=== PATIENT | female | born 2000 | race Caucasian/White ===

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

== ENCOUNTER 2020-12-09 19:24 | Emergency (ER) | payer MEDICAID, SELFPAY ==
[2020-12-09 20:47] VITALS: BP 118/78; PULSE 91; RESP 18; TEMP 36.4; O2SAT 99; BMI 31.1
--- NOTE | 2020-12-09 20:58 | HMH.EDUTC ---
[facility] [place] Disposition Clinical Impression: Exposure to COVID-19 virus Pharyngitis Qualifiers: Pharyngitis/tonsillitis etiology: unspecified etiology Qualified Code(s): J02.9 - Acute pharyngitis, unspecified Disposition: Home, Self-Care Condition on Discharge: Good Instructions: DI for COVID-19 (Suspected or Confirmed ), Preventing the Spread of Coronavirus Discharge Instructions Additional Instructions: Drink plenty of fluids. Take tylenol for pain or fever. Return if you begin to have difficulty breathing. Follow up with your regular doctor. GO TO THE ER FOR ANY WORSENING SYMPTOMS Quarantine until you know the results of your covid-19 test. If it is positive, the health department should call you and give you further instructions about your length of Quarantine and other things. Notify your school or workplace of your results and follow their instructions regarding return to work/school. Prescriptions: Brompheniramine/Pseudoephed/Dm [Bromfed Dm Cough Syrup] 5 ml PO Q6HP PRN #240 syrup PRN Reason: Cough Transmission Status: Received by [facility] Ondansetron [Zofran 4mg ODT] 4 mg PO Q8HP PRN #20 tab.rapdis PRN Reason: Nausea Transmission Status: Received by [facility] Referrals: Jaya Bedoya MD [Primary Care Provider] - Forms: Work/School Release Time of Disposition: 21:20 Medical Decision Making - Medical Records Medical records reviewed: No: I reviewed the patient's medical records. - Nazario Inquiry Pt receiving controlled substance: No Vital Signs: 12/09/20 20:47 12/09/20 21:06 Temperature 97.5 F L 97.5 F L Temperature Source Oral Oral Pulse Rate 91 H Pulse Rate [Left] 91 H Respiratory Rate 18 16 Blood Pressure 118/78 Blood Pressure [Right Arm] 118/78 Blood Pressure Mean [Right Arm] 91 02 Sat by Pulse Oximetry 99 - Lab Data Lab Results 12/09/20 21:19: Strep Scn Rapid Clinic Negative Orders (Tests/Meds): ORDERS Category Date Time Status Covid-19 Nasal PCR ([facility]) Routine Lab 12/09/20 20:45 Received Strep Screen Confirmation Stat Micro 12/09/20 21:[address] [facility] [place] HPI - General Stated complaint: cov test Time Seen by Provider: 12/09/20 21:00 Mode of Arrival: Ambulatory Source of Information: Patient Limitations: No Limitations Description of Symptoms (Recalled from Triage Doc. by RN): PT C/O SOA,, SORE THROAT, RUNNY NOSE, AND LOSS OF TASTE AND SMELL. X3 DAYS. HEENT Symptoms (Recalled from RN notes): Yes (SORE THROAT AND RUNNY NOSE) Resp Symptoms (Recalled from RN notes): Yes (SOA) Skin Symptoms (Recalled from RN notes): No MS Symptoms (Recalled from RN notes): No Functional Status (Recalled from RN notes): NA - History of Present Illness Provider Complaint: She states that for the past 2 days she has had a sore throat and she has felt bad. She has been exposed to covid-19 last week. She has not been vaccinated. - Related Data Previous Rx's Medication Instructions Recorded cephalexin 500 mg capsule 500 mg PO TID #21 cap 08/30/20 prednisone 20 mg tablet 20 mg PO BID 5 Days #10 tab 08/30/20 benzonatate 100 mg capsule 100 mg PO TID PRN #14 cap 09/01/20 dextromethorphan-guaifenesin 30 1 tab PO Q12H #30 tab 09/01/20 mg-600 mg tablet extended [id number] hr Brompheniramine/Pseudoephed/Dm 5 ml PO Q6HP PRN #240 syrup 12/09/20 [Bromfed Dm Cough Syrup] Ondansetron [Zofran 4mg ODT] 4 mg PO Q8HP PRN #20 tab.rapdis 12/09/20 Allergies Allergy/AdvReac Type Severity Reaction Status Date / Time azithromycin [AZITHROMYCIN] Allergy Intermediate Verified 09/01/20 11:37 montelukast [From SINGULAIR] Allergy Intermediate Verified 09/01/20 11:37 - Worker's Comp Is this a Worker's Comp case?: No [facility] History - Hepatitis A Screen Drug use history?: No High risk sexual behaviors?: No History of sexually transmitted infection?: No Currently employed?: No Childcare worker?: No Do you have in
[2020-12-09 21:06] VITALS: BP 118/78; PULSE 91; RESP 16; TEMP 36.4
[2020-12-09 21:20] LABS: UTC Strep Screen (Rapid) Negative (Negative)
--- NOTE | 2020-12-12 14:06 | PC.NURSE ---
PT NOTIFIED OF POSITIVE COVID RESULTS
== END 2020-12-09 21:25 | disposition home or self-care (01) ==
PROVIDERS: Emergency Provider Nurse Practitioner Family; PCP Emergency Medicine
DX: Z20.822 Contact with and (suspected) exposure to COVID-19 (principal); J02.9 Acute pharyngitis, unspecified; R06.02 Shortness of breath; R09.89 Other specified symptoms and signs involving the circulatory and respiratory systems; R43.9 Unspecified disturbances of smell and taste
CPT/HCPCS: 87880; 99202; G0463; U0003

== ENCOUNTER → 2021-03-26 17:25 | Outpatient (CLI) | payer MEDICAID, SELFPAY ==
[2021-03-26 18:21] LABS: Chloride 104 mmol/L (98-107); Potassium 4.3 mmoL/L (3.5-5.1); Sodium 140 mmol/L (136-145)
[2021-03-26 18:24] LABS: Alanine Aminotransferase 14 U/L (12-78); Albumin Level 4.1 g/dl (3.5-5.0); Albumin/Globulin Ratio 1.4 (1.1-1.8); Alkaline Phosphatase 82 U/L (38-126); Anion Gap 10.3 mEq/L (5-15); Aspartate Amino Transferase 21 U/L (14-36); Blood Urea Nitrogen 6 mg/dl (7-17); Carbon Dioxide 30 mmol/L (22.0-30.0); Estimated Glomerular Filt Rate 91 ml/min (>60); GFR (African American) 111 ML/MIN (>60); Globulin 2.9 g/dL (1.3-3.2)
[2021-03-26 18:25] LABS: Bilirubin,Total < 0.1 mg/dl (0.2-1.3); Calcium 9.3 mg/dl (8.4-10.2); Glucose 81 mg/dl (74-100)
[2021-03-28 10:44] LABS: Rapid Plasma Reagin Ab Titer Non Reactive (NonRea<1:1)
== END ==
DX: Z11.3 Encounter for screening for infections with a predominantly sexual mode of transmission (principal); Z13.0 Encounter for screening for diseases of the blood and blood-forming organs and certain disorders involving the immune mechanism
CPT/HCPCS: 36415; 80053; 86592

== ENCOUNTER 2022-01-20 11:30 | Emergency (ER) | payer MEDICAID, SELFPAY ==
[2022-01-20 11:41] VITALS: BP 125/78; PULSE 87; RESP 15; TEMP 36.9; O2SAT 98; BMI 28.3
[2022-01-20 11:57] VITALS: BP 125/78; PULSE 87; RESP 15; TEMP 36.9; O2SAT 98
--- NOTE | 2022-01-20 12:14 | HMH.EDEYEP ---
Discharge Plan Disposition Patient Disposition: Home, Self-Care Condition: Good Prescriptions Prescriptions: New erythromycin 5 mg/gram (0.5 %) ointment 1 applic ophthalmic (eye) BID Qty: 3.5 0RF Rx Instructions: Please apply to your (R) eye twice a day No Action dextromethorphan-guaifenesin 30-600 mg tablet extended release 12 hr 1 tab PO Q12H Qty: 30 0RF benzonatate [Tessalon Perles] 100 mg capsule 100 mg PO TID PRN (Reason: cough) Qty: 14 0RF cephalexin 500 mg capsule 500 mg PO TID Qty: 21 0RF prednisone 20 mg tablet 20 mg PO BID 5 Days Qty: 10 0RF efecvykhirrgvna-sqsmxmgeo-LK 118 ML syrup 5 ml PO Q6HP PRN (Reason: Cough) Qty: 240 0RF ondansetron 4 MG tablet,disintegrating 4 mg PO Q8HP PRN (Reason: Nausea) Qty: 20 0RF Referrals Follow up/Referrals: Jaya Bedoya MD [Primary Care Provider] - See instructions Activity Restrictions/Add. Instructions Additional Instructions/Restrictions: Follow up with your primary care physician in 2-3 days for reevalution. Use antibiotic ointment as prescribed. Please use ibuprofen 800 mg every 8 hours as needed for pain and comfort for the next 3 days. May also utilize warm compresses to help with comfort. Can also use over the counter Similasan and other sterile lubricants, which you can pickle solution maker at your local drug store to ease pain. Please return to the emergency department for any worsening symptoms such as eye pain with movement of your eye, red eye, worsening swelling, fevers, headaches or any other concerns. Clinical Impressions Clinical Impression: Hordeolum externum (stye) Instructions Patient Instructions: DI for Hordeolum Print Language Print Language: French Discharge ED Provider: Daya March Eye Problem HPI General Chief complaint: Eye Problems Stated complaint: right eye swelling Time Seen by Provider: 01/20/22 11:50 Mode of Arrival: Ambulatory Source of Information: Patient Limitations: No Limitations Description of Symptoms (Recalled from ER Triage Doc. by RN): Pt presents with a stye to bottome rt eyelid. Advises that she gets one every couple of months. C/O pain and eye irritation History of Present Illness HPI Narrative: Mrs. Hinson is a 21-year-old female no significant past medical history presenting with a lesion along the right lower eyelid consistent with Hydroleum, does not involve tear duct. Patient reports symptoms started 2 days prior. She reports similar symptoms prior. Also complains of eye pain along the base of the lesion, but no pain w/ EOM. Denies headache. No recent cough, rhinorrhea or congestion. Reports utilizing [employer], just purchased a new bottle. Denies any fevers or other systemic signs of infection. MD chief complaint: eye pain (pain along the base of the eye) Onset (ago): day(s) Onset description: gradual Duration: constant Location: right eye Eye Symptoms: redness and pain Place: home Mechanism: none Severity: moderate If Pain, Quality: aching Associated symptoms: none Treatments Prior to Arrival: none Related Data Previous Rx's Medication Instructions Recorded cephalexin 500 mg capsule 500 mg PO TID #21 caps 08/30/20 prednisone 20 mg tablet 20 mg PO BID 5 days #10 tabs 08/30/20 benzonatate 100 mg capsule 100 mg PO TID PRN cough #14 caps 09/01/20 (Jaquelin Montague) dextromethorphan-guaifenesin 30 1 tab PO Q12H #30 tabs 09/01/20 mg-600 mg tablet extended hr gdlapaqpraglxlc-flcxrekxiuidzgx-UA 5 ml PO Q6HP PRN Cough ##240 12/09/20 2 mg-30 mg-10 mg/5 mL oral syrup ondansetron 4 mg disintegrating 4 mg PO Q8HP PRN Nausea ##20 12/09/20 tablet erythromycin 5 mg/gram (0.5 %) eye 1 applic ophthalmic (eye) BID #3.5 01/20/22 ointment grams Allergies Allergy/AdvReac Type Severity Reaction Status Date / Time azithromycin [AZITHROMYCIN] Allergy Intermediate Verified 09/01/20 11:37 montelukast [From SINGULAIR] Allergy Intermediate Verified
== END 2022-01-20 12:00 | disposition home or self-care (01) ==
PROVIDERS: Emergency Provider Student in an Organized Health Care Education/Training Program; PCP Emergency Medicine
DX: H00.012 Hordeolum externum right lower eyelid; Z88.1 Allergy status to other antibiotic agents; Z88.8 Allergy status to other drugs, medicaments and biological substances; Z72.0 Tobacco use
CPT/HCPCS: 99283

== ENCOUNTER → 2022-04-24 11:11 | Outpatient (CLI) | payer MEDICAID, SELFPAY | PROVIDERS: PCP Physician Assistant; Visit Provider Physician Assistant | DX: L03.316 Cellulitis of umbilicus (principal); B96.89 Other specified bacterial agents as the cause of diseases classified elsewhere | CPT/HCPCS: 87070; 87077; 87205 ==

== ENCOUNTER 2022-10-05 21:13 | Emergency (ER) | payer MEDICAID, SELFPAY ==
[2022-10-05 21:13] VITALS: BP 126/65; PULSE 63; RESP 16; TEMP 36.6; O2SAT 100; BMI 30.9
[2022-10-05 21:29] VITALS: BMI 24.9
[2022-10-05 21:35] LABS: Microscopic, Urine URINE MICROSCOPIC (MICROSCOPIC)
[2022-10-05 21:36] LABS: Appearance,Urine CLOUDY (Clear); Blood, Urine 3+ (Negative); Color,Urine BROWN (Yellow); Glucose,Urine (UA) Negative (Negative); Ketones,Urine 2+ (Negative); Leukocyte Esterase,Urine Negative (Negative); Nitrate,Urine POSITIVE (Negative); Protein,Urine 2+ (Negative); Specific Gravity, Urine >= 1.030 (1.005-1.030)
--- NOTE | 2022-10-05 21:37 | PC.NURSE ---
ROUNDED ON PT NOTHING NEEDED AT THIS TIME
--- NOTE | 2022-10-05 21:38 | PC.NURSE ---
Pt advised she did not want her step-mother back to her room. She advised she did want her step-father.
[2022-10-05 21:40] LABS: Bilirubin,Urine 2+ (Negative)
--- NOTE | 2022-10-05 21:42 | PC.NURSE ---
Pt step-father at BS
[2022-10-05 21:49] LABS: Barbiturates Screen,Urine Negative ng/ml (<200); Benzodiazepines Screen,Urine Negative ng/ml (<200)
[2022-10-05 21:50] LABS: Cannabinoid Screen,Urine Negative ng/ml (<50); Cocaine Screen,Urine Negative ng/ml (<300)
[2022-10-05 21:51] LABS: Methadone Screen,Urine Positive ng/ml (<300)
[2022-10-05 21:52] LABS: Opiate Screen,Urine Negative ng/ml (<300); Phencyclidine Screen,Urine Negative ng/ml (<25)
--- NOTE | 2022-10-05 21:53 | PC.NURSE ---
pt refuses blood work or iv insertion
[2022-10-05 21:56] LABS: Calcium Oxalate Crystals,Urine Trace /lpf; Mucus,Urine 2+ /lpf; RBC,Urine Occasional #/hpf (0-3)
--- NOTE | 2022-10-05 21:56 | PC.NURSE ---
Pt stated that she wanted Zeynep the step father advised he was unable to get ahold of her. He was stepping out at this time to get Max. PT still refuses blood work at this time. She stated, Get this bug out my mouth. I have a stink bug in my mouth. When asked if I could take a look she stated, No .
[2022-10-05 21:57] LABS: Bacteria,Urine 3+ /lpf
--- NOTE | 2022-10-05 22:03 | PC.NURSE ---
Pt boyfriend at at this time. He advised that she is scared of needles.
--- NOTE | 2022-10-05 22:07 | PC.NURSE ---
Dr. Bedoya at
[2022-10-05 22:10] LABS: Urine Pregnancy, HCG Qual. Negative (Negative)
--- NOTE | 2022-10-05 22:43 | PC.NURSE ---
PT REFUSES STILL TO LET US DO ANYTHING, SHE SIGNING OUT AMA
--- NOTE | 2022-10-05 22:45 | PC.NURSE ---
pt was asked by Dr Bedoya if she would like to get an IV so thatr we could start treating her abdominal pain and the pt refused and requested AMA paper work. pt signed ama papers and left with her boyfriend.
[2022-10-05 22:48] VITALS: BP 126/65; PULSE 63; RESP 16; TEMP 36.6; O2SAT 98
--- NOTE | 2022-10-05 22:50 | HMH.EDAMS ---
Discharge Plan Disposition Patient Disposition: Left Against Medical Advice Prescriptions Prescriptions: No Action methadone 5 mg/5 mL solution 5 mg PO DAILY sulfamethoxazole-trimethoprim [Bactrim DS] 800-160 mg tablet 1 tab PO BID 10 Days Qty: 20 0RF Referrals Follow up/Referrals: Provider,Referral, MD [Primary Care Provider] - See instructions Activity Restrictions/Add. Instructions Additional Instructions/Restrictions: consider [employer] or [employer] Clinical Impressions Clinical Impression: Drug use Instructions Patient Instructions: DI for Substance Use Disorder Discharge ED Provider: Aureliano (ED)Jaya Altered Mental Status HPI General Chief Complaint: Altered Mental Status Stated Complaint: Withdrawal symptoms Time Seen by Provider: 10/05/22 21:45 Mode of Arrival: Wheelchair Source of Information: Patient, Significant Other and Medical Record Limitations: No Limitations Description of Symptoms (Recalled from ER Triage Doc. by RN): pt reports that she stopped taking methadone a few weeks ago but took methadone today via snorting it.the pt is expressing parinoid thoughts and concerns about some one putting something black in her methatdone that she claimed came from [facility] [place]. History of Present Illness HPI narrative: pt stopped methadone clinic - pt snorted methadone today - pt feels confused at times but no chest pain or other c/o MD complaint: confusion Onset (ago): hour(s) Timing confirmed by: family member Severity: moderate Consistency of symptoms: waxing and waning Context: drug abuse Associated symptoms: denies other symptoms Related Data Home Medications Medication Instructions Recorded Confirmed methadone 5 mg/5 mL oral solution 5 mg PO DAILY 04/24/22 04/24/22 Previous Rx's Medication Instructions Recorded sulfamethoxazole 800 1 tab PO BID 10 days #20 tabs 04/24/22 mg-trimethoprim 160 mg tablet (Bactrim DS) Allergies Allergy/AdvReac Type Severity Reaction Status Date / Time azithromycin [AZITHROMYCIN] Allergy Intermediate Verified 09/01/20 11:37 montelukast [From SINGULAIR] Allergy Intermediate Verified 09/01/20 11:37 [facility] Disclaimer: The information contained in this section may have been updated after the patient was seen, as this information can be updated by other users. Social History Smoking Status: Current every day smoker tobacco type: cigarettes packs per day: 1 alcohol intake: current substance use type: denies use current occupational status: employed Travel in the last 8 weeks: None current occupation: caregiver at [employer] current occupational exposures/hazards: Yes (exposure to others) ROS Obtained: Yes All systems reviewed & no additional complaints except as documented Physical Exam General General appearance: alert Head Head exam: normocephalic Eye Eye exam: Present PERRL and EOMI ENT ENT exam: Present mucous membranes moist Neck Neck exam: Present trachea midline Respiratory Respiratory exam: Present normal lung sounds bilaterally; Absent respiratory distress Cardiovascular Cardiovascular exam: Present regular rate; Absent systolic murmur Abdominal Exam Abdominal exam: Present soft Extremities Exam Extremities exam: Present full ROM Neurological Exam Neurological exam: Present alert, oriented X3, CN II-XII intact and motor sensory deficit Psychiatric Psychiatric exam: Present anxious and other (no def pscycosis); Absent suicidal ideation Skin Skin exam: Absent rash Medical Decision Making Medical Records Medical records reviewed: Yes I reviewed the patient's medical records. Nazario Inquiry Pt receiving controlled substance: No Vital Signs: 10/05/22 21:13 Temperature 97.8 F Temperature Source Oral Pulse Rate [Left] 63 Respiratory Rate 16 Blood Pressure [Right Arm] 126/65 Blood Pressure Mean [Right Arm] 85 02 Sat by Pulse
[2022-10-05 23:29] LABS: Amphetamine/Metha Screen,Urine Positive ng/ml (<1000)
== END 2022-10-05 23:04 | disposition left against medical advice (07) ==
PROVIDERS: Emergency Provider Emergency Medicine
DX: R41.82 Altered mental status, unspecified (principal); F11.90 Opioid use, unspecified, uncomplicated; F17.210 Nicotine dependence, cigarettes, uncomplicated
CPT/HCPCS: 80305; 81001; 81025; 87086; 96361; 96374; 99284; 99285

== ENCOUNTER 2024-11-16 20:33 | Emergency (ER) | payer MEDICAID, SELFPAY ==
[2024-11-16 20:43] VITALS: BP 139/80; PULSE 96; O2SAT 100
[2024-11-16 20:49] VITALS: BP 139/80; PULSE 104; RESP 19; O2SAT 98; BMI 33.6
[2024-11-16 20:56] VITALS: BP 139/80; PULSE 104; RESP 18; TEMP 36.8; O2SAT 98
[2024-11-16 21:00] VITALS: BP 121/74; PULSE 90; O2SAT 99
--- NOTE | 2024-11-16 21:10 | ED_ITS ---
Discharge Plan Disposition Patient Disposition: Home, Self-Care Condition: Good Prescriptions Prescriptions: No Action prednisone 20 mg tablet 20 mg PO BID Qty: 10 0RF Rx Instructions: administer with food or milk amoxicillin 500 mg tablet See Rx Instructions PO BID 10 Days Qty: 20 0RF Rx Instructions: 500 mg PO BID Referrals Follow up/Referrals: Leroy Reed MD [Staff Physician, General Surgery] - See instructions Wolfgang Stearns APRN [Primary Care Provider, Family Practice] - See instructions Activity Restrictions/Add. Instructions Additional Instructions/Restrictions: You do have some nonspecific nodules on your lungs that you will need to follow- up with a primary care provider so that they can follow these. I have sent you with a referral to a general surgeon who may need to remove your gallbladder if you continue to have right upper quadrant abdominal pain. You will need to call them. Return the emergency department for any acute or worsening symptoms. Clinical Impressions Clinical Impression: Abdominal pain Instructions Patient Instructions: DI for Acute Abdominal Pain Print Language Print Language: Korean Discharge ED Provider: Guillermina Salazar Adult HPI General Chief complaint: Abdominal Pain Stated complaint: RT side pain and vomitting Time Seen by Provider: 11/16/24 20:43 Mode of Arrival: Ambulatory Source of Information: Relative Description of Symptoms (Recalled from ER Triage Doc. by RN): right sided abdominal pain asssociated with nausea and vomitting during pain episodes, has been like this for years and patient has decided tonight to come be seen in the ed History of Present Illness HPI narrative: Patient is a 24-year-old female with no significant past medical history who presented to the emergency department with right sided abdominal pain that has been present for 2 years intermittently will get worse. Patient states she was told to come get evaluated in the emergency department today. Patient states that the episodes will intermittently occur not associated with eating or anything in particular. Patient reports nausea during the episodes but denies any vomiting. Patient denies any lower abdominal pain. Patient denies any alcohol use drug use.Patient denies any chest pain shortness of breath. Patient denies any headache or vision changes. Patient denies any diarrhea. Patient has had normal bowel movements. Patient does report some urinary symptoms. Related Data Previous Rx's ?Medication ?Instructions ?Recorded amoxicillin 500 mg tablet See Rx Instructions PO BID 1 0 days 10/09/24 #20 tabs prednisone 20 mg tablet 20 mg PO BID #10 tabs 06/28/ 25 Allergies Allergy/AdvReac Type Severity Reaction Status Date / Time azithromycin (AZITHROMYCIN) Allergy Intermediate Verified 10/09/24 16:11 montelukast (From SINGULAIR) Allergy Intermediate Verified 10/09/24 16:11 [facility] Disclaimer: The information contained in this section may have been updated after the patient was seen, as this information can be updated by other users. 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[employer] current occupational exposures/hazards: Yes (exposure to others) Other Medical History Have you received the Flu Vaccine for this season: No Have you received the Pneumonia Vaccine: No ROS Obtained: Yes All systems reviewed & no additional complaints except as documented and Yes Systems reviewed as appropriate & no additional complaints except as documented Physical Exam General General appearance: alert and in no apparent distress Head Head exam: atraumatic, normocephalic and normal inspection Eye Eye exam: Present normal appearance, PERRL and EOMI; Absent scleral icterus ENT ENT exam: Present normal exam and normal external ear exam Neck Neck exam: Present normal inspection and full ROM Chest Chest inspection: Present normal inspection and symmetric chest wall rise Respiratory Respiratory exam: Present normal lung sounds bilaterally; Absent respiratory distress or wheezes Cardiovascular Cardiovascular exam: Present regular rate, normal rhythm and normal heart sounds Abdominal Exam Abdominal exam: Present soft, distention and tenderness (R flank tenderness, RUQ tenderness); Absent guarding or rebound Extremities Exam Extremities exam: Present normal inspection and full ROM Back Exam Back exam: Present normal inspection and full ROM Neurological Exam Neurological exam: Present alert and oriented X3 Psychiatric Psychiatric exam: Present normal affect and normal mood Skin Skin exam: Present warm and dry Medical Decision Making Medical Records Screening: Per USPSTF and CDC recommendations, given the prevalence of disease in our region, it is our hospital?s policy to screen for HIV and viral Hepatitis for all patients aged 18 and over and those with ongoing risk factors. Nazario Inquiry Pt receiving controlled substance: No Vital Signs: 11/16/24 20:43 11/16/24 20:49 11/16/24 20:56 Temperature 98.2 F Temperature Source Oral Pulse Rate 96 H 104 H Pulse Rate [Left Radial] 104 H Respiratory Rate 19 18 Blood Pressure 139/80 139/80 Blood Pressure [Right Arm] 139/80 Blood Pressure Mean [Right Arm] 99 Blood Pressure Position Blood Pressure Position [Right Arm] Supine 02 Sat by Pulse Oximetry 100 98 98 Oxygen Delivery Method Room Air Room Air 11/16/24 21:00 11/17/24 00:03 Temperature 97.6 F Temperature Source Oral Pulse Rate 90 90 Pulse Rate [Left Radial] Respiratory Rate 18 Blood Pressure 121/74 122/76 Blood Pressure [Right Arm] Blood Pressure Mean [Right Arm] Blood Pressure Position Supine Blood Pressure Position [Right Arm] 02 Sat by Pulse Oximetry 99 Oxygen Delivery Method Room Air Lab Data Lab results reviewed: Yes I reviewed the patient's lab results. Lab Results 11/16/24 20:50: WBC 10.8, RBC 4.82, Hgb 14.5, Hct 42.1, MCV 87.3, MCH 30.1, MCHC 34.4, RDW 13.2, Plt Count 244, MPV 10.3, Neut % (Auto) 52.0, Lymph % (Auto) 40.4, [place] % (Auto) 6.2, Eos % (Auto) 0.8, Baso % (Auto) 0.3, Neut # (Auto) 5.6, Lymph # (Auto) 4.4, [place] # (Auto) 0.7, Eos # (Auto) 0.1, Baso # (Auto) 0.0, Sodium 136, Potassium 4.4, Chloride 104, Carbon Dioxide 23, Anion Gap 13.4, BUN 13, Creatinine 0.70, Estimated Creat Clear 169, Estimated GFR 103, Est GFR ( Amer) 124, Glucose 100, Calcium 9.9, Total Bilirubin 1.1, AST 36, ALT 17, Alkaline Phosphatase 47, Total Protein 8.8 H D, Albumin 4.1, Globulin 4.7 H, Albumin/Globulin Ratio 0.9 L, Lipase 55, Serum HCG, Qual Negative, HCV Ab MELIA w/Rflx PCR Qn Negative, HIV Ag/Ab Combo Qual Negative 11/16/24 21:30: Urine Color Yellow, Urine Appearance Clear, Urine pH 6.0, Ur Specific [place] >= 1.030, Urine Protein Negative, Urine Glucose (UA) Negative, Urine Ketones Negative, Urine Blood Negative, Urine Nitrate Negative, Urine Bilirubin 1+ A, Urine Urobilinogen 1.0, Ur Leukocyte Esterase Trace, Amorphous Sediment 4+ 11/16/24 20:50 11/16/24 20:50 Orders (Tests/Meds): ED MEDICATIONS Discontinued Medications Generic Name Dose Route Start Last Admin Trade Name Freq PRN Reason Stop Dose Admin Iopamidol 75 ml 11/16/24 22:49 11/16/24 22:49 Iopamidol-370 (76%);100ml Bottle IV 11/16/24 22:50 75 ml ONCE ONE Administration Sodium Chloride 10 ml 11/16/24 22:49 11/16/24 22:49 Sodium Chloride 0.9% 10ml Syr (Rad Only) IV 12/16/24 22:48 10 ml NEEDED PRN Administration Maintain IV Site ORDERS Category Date Time Status CT abdomen pelvis w con Stat Cat Scan 11/16/24 22:22 Completed POCUS Point of Care (ER Only) Stat Exams 11/16/24 21:07 Completed CBC w/Auto Diff [Complete Blood Count Auto Diff] Stat Lab 11/16/24 20:50 Completed CMP [Comprehensive Metabolic Panel] Stat Lab 11/16/24 20:50 Completed HCG Qualitative, Serum Stat Lab 11/16/24 20:50 Completed HIV Combo Stat Lab 11/16/24 20:50 Completed Hepatitis C Ab Qual. W/ RFX Stat Lab 11/16/24 20:50 Completed Lipase Stat Lab 11/16/24 20:50 Completed UA [Urinalysis and Microscopic] Stat Lab 11/16/24 21:30 Completed Urine Culture Stat Micro 11/16/24 21:30 Results Medical Decision Narrative: Patient is a 24-year-old female with no significant past medical history who presented to the emergency department with right sided flank pain for 2 years that intermittently will get worse. On arrival, patient was hemodynamically stable with unremarkable vital signs. Differential includes but not limited to: Urinary tract infection, pyelonephritis, nephrolithiasis, cholelithiasis, cholecystitis, pancreatitis, amongst others. Patient's labs were reviewed and interpreted by myself: CBC showed no leukocytosis, hemoglobin was stable. CMP was unremarkable with no significantly elevated LFTs. Lipase was normal. UA showed no evidence of infection. CT scan was reviewed and interpreted by myself and showed no acute pathology. There was nonspecific nodules which I discussed with the patient. At this time, I felt that patient was appropriate for discharge given that patient had no pain at this time. Patient was told that she may need her gallbladder removed and was given a general surgery referral. Patient was given return precautions and discharged home in stable condition. Critical Care Critical Care Time Critical Care Time: No
[2024-11-16 21:20] LABS: Hematocrit 42.1 % (37.0-47.0); Hemoglobin 14.5 g/dL (12.2-16.2); Immature Granulocytes % 0.3 %; Mean Corpuscular HGB Conc 34.4 g/dL (31.8-35.4); Mean Corpuscular Hemoglobin 30.1 pg (27.0-31.2); Mean Corpuscular Volume 87.3 fl (81-99); Nucleated Red Blood Cells % 0 %; Platelet Count 244 K/mm3 (142-424); Red Blood Count 4.82 M/mm3 (4.20-5.40); Red Cell Distribution Width-SD 42.5 fL; White Blood Count 10.8 K/mm3 (4.8-10.8)
[2024-11-16 21:22] LABS: Chloride 104 mmol/L (98-107); Potassium 4.4 mmoL/L (3.5-5.1); Sodium 136 mmol/L (136-145)
[2024-11-16 21:25] LABS: Alanine Aminotransferase 17 U/L (12-78); Alkaline Phosphatase 47 U/L (38-126); Bilirubin,Total 1.1 mg/dl (0.2-1.3); Blood Urea Nitrogen 13 mg/dl (7-17); Creatinine Clearance Estimated 169 mL/min (50-200); Creatinine,Serum 0.70 mg/dl (0.52-1.04); Estimated Glomerular Filt Rate 103 ml/min (>60); GFR (African American) 124 ML/MIN (>60); HCG Qualitative, Serum Negative (Negative)
[2024-11-16 21:26] LABS: Calcium 9.9 mg/dl (8.4-10.2); Glucose 100 mg/dl (74-100)
[2024-11-16 21:30] LABS: Albumin Level 4.1 g/dl (3.5-5.0)
[2024-11-16 21:33] LABS: Albumin/Globulin Ratio 0.9 (1.1-1.8); Anion Gap 13.4 mEq/L (5-15); Aspartate Amino Transferase 36 U/L (14-36); Carbon Dioxide 23 mmol/L (22.0-30.0); Globulin 4.7 g/dL (1.3-3.2); Lipase 55 U/L (23-300); Total Protein,Serum 8.8 g/dl (6.3-8.2)
[2024-11-16 21:38] LABS: Microscopic, Urine URINE MICROSCOPIC (MICROSCOPIC)
[2024-11-16 21:46] LABS: Color,Urine YELLOW (Yellow); Glucose,Urine (UA) Negative (Negative); Ketones,Urine Negative (Negative); Leukocyte Esterase,Urine TRACE (Negative); PH,Urine 6.0 (5.0-8.5); Protein,Urine Negative (Negative); Specific Gravity, Urine >= 1.030 (1.005-1.030); Urobilinogen,Urine 1.0 EU/dl (0.2)
[2024-11-16 22:02] LABS: Bilirubin,Urine 1+ (Negative)
[2024-11-16 22:14] LABS: Hepatitis C Ab Qual. W/ RFX NEGATIVE (Negative)
--- NOTE | 2024-11-16 22:22 | CT_ITS ---
PROCEDURE INFORMATION: Exam: CT Abdomen And Pelvis With Contrast Exam date and time: 11/16/2024 10:43 PM Age: 24 years old Clinical indication: Abdominal pain; Additional info: Right flank pain TECHNIQUE: Imaging protocol: Computed tomography of the abdomen and pelvis with contrast. Radiation optimization: All CT scans at this facility use at least one of these dose optimization techniques: automated exposure control; mA and/or kV adjustment per patient size (includes targeted exams where dose is matched to clinical indication); or iterative reconstruction. Contrast material: ISOVUE; Contrast volume: 75 ml; Contrast route: IV; COMPARISON: CR XR ACUTE ABDOMEN SERIES 07/11/2019 1:17 AM FINDINGS: Lungs: 4 mm subpleural nodule lateral right lower lobe on image 2 of series 3 and 4 mm lateral subpleural nodule left lower lobe on image 1 and 6 mm nodule anterior left lower lobe on image 4. Liver: Normal. No mass. Gallbladder and biliary ducts: Normal. No calcified stones. No ductal dilation. Pancreas: Normal. No ductal dilation. Spleen: Normal. No splenomegaly. Adrenal glands: Normal. No mass. Kidneys and ureters: Normal. No hydronephrosis. Stomach and bowel: Unremarkable. No obstruction. No mucosal thickening. Appendix: Appendix is normal. No evidence of appendicitis. Intraperitoneal space: Unremarkable. No free air. No significant fluid collection. Vasculature: Unremarkable. No abdominal aortic aneurysm. Lymph nodes: Unremarkable. No enlarged lymph nodes. Urinary bladder: Unremarkable as visualized. Reproductive: Incidental 15 mm marginally enhancing cyst in the left ovary compatible with physiologic cyst. No follow-up advised. Bones/joints: Unremarkable. No acute fracture. Soft tissues: Unremarkable. IMPRESSION: 1. No acute abnormalities of the abdomen and pelvis. Nonemergent findings as above. 2. Bibasilar lung nodules largest measuring 6 mm. For patients at low risk (minimal or absent history of smoking and of other known risk factors), recommend CT Chest at 3-6 months, then consider CT Chest at 18-24 months. For patients at high risk (history of smoking or of other known risk factors), recommend CT Chest at 3-6 months, then CT Chest at 18-24 months. (Reference: Jan) REFERENCES: Jan Dee et al. Guidelines for Management of Incidental Pulmonary Nodules Detected on CT Images: From the Fleischner Society 2017. Radiology. 2017;284(1):228-243.
--- NOTE | 2024-11-16 22:41 | PC.NURSE ---
radiology called and stated pt is refusing contrast. customs entry writer flushed Iv and Iv is still in place. customs entry writer educated patient on the need for contrast to help get more information on what brought her in today.
--- NOTE | 2024-11-16 22:48 | HMH.ITSTN ---
After patient spoke with BHAVNA Loza, patient agreed to proceed with the contrast study.
[2024-11-16] MEDS: IOPAMIDOL-370 (76%);100ML BOTTLE 75 ML IV (22:49)
[2024-11-16] MEDS: SODIUM CHLORIDE 0.9% 10ML SYR (RAD ONLY) 10 ML IV (22:49)
[2024-11-17 00:03] VITALS: BP 122/76; PULSE 90; RESP 18; TEMP 36.4; O2SAT 98
[2024-11-17 02:48] LABS: Amorphous Sediment,Urine 4+ /lpf
--- NOTE | 2024-11-19 06:24 | P.EN_ITS ---
Urine culture that was collected on 11/16/2024 resulted late night on 11/18/24 and I was informed of it by public address servicerBHAVNA Romero this morning. I reviewed the note from the patient's encounter on 11/16/2024 where she had flank pain and it was suspected by the ER provider at that time to be potentially related to the gallbladder. Urinalysis did not demonstrate any findings of infection. I suspe ct that with urine culture not showing growth until 2 days later and only having up to 70,000 CFU's that this is a contaminant. I reached out to the patient by phone and spoke with her at 0623. After confirming her name and date of , we discussed her urine results. She states she is not having any abdominal pain, no painful urination, no flank pain. She also denies any blood in her urine. Since her initial labs were reassuring against urinary infection and she has no associated symptoms and the delayed growth with this culture is more likely to be related to contamination, I explained to her that at this time I am not going to proceed with providing any antibiotics but instructed her to closely monitor her symptoms and if if she was to develop flank pain, burning with urination, or blood in the urine to return to the ER for further evaluation. I also informed her that this preliminary result will continue to be cultured in the lab and if it results with anything more concerning or convincing for infection at that time we would call her and provide antibiotics but since she is feeling well and asymptomatic I do not believe they are indicated at this time. She was given the opportunity to ask questions which were answered to her satisfaction. She is agreeable to this plan. No change in management at this time. Kirsten Heart MD
--- NOTE | 2024-11-20 01:41 | EXP.EVENT.NO ---
Urine culture speciation resulted demonstrating padron-sensitive E. coli. Since patient had originally presented with flank pain, I sent a prescription for Bactrim since this can concentrate in the kidneys and treat pyelonephritis to her preferred pharmacy on file which is [email or web address]. Attempted to call the patient to update her, she would not answer her phone. Will call again in the morning.
--- NOTE | 2024-11-20 01:42 | PC.NURSE ---
attempted to call patient twice to notify of new prescription sent to pharmacy without answer
--- NOTE | 2024-11-20 09:28 | PC.NURSE ---
spoke with patient and advised her of urine culture results and that er md had called in bactrim to [facility] pharmacy, pt verbalized understanding
== END 2024-11-17 00:05 | disposition home or self-care (01) ==
PROVIDERS: Emergency Provider Student in an Organized Health Care Education/Training Program; PCP Nurse Practitioner Family
DX: R10.11 Right upper quadrant pain (principal); R11.2 Nausea with vomiting, unspecified; F17.210 Nicotine dependence, cigarettes, uncomplicated
CPT/HCPCS: 74177; 80053; 81001; 83690; 84703; 85025; 86803; 87086; 87088; 87186; 87389; 99285; Q9967

== ENCOUNTER 2024-11-26 13:32 | Emergency (ER) | payer MEDICAID, SELFPAY ==
[2024-11-26 13:37] VITALS: BP 105/69; PULSE 87; RESP 16; TEMP 36.4; O2SAT 99; BMI 31.8
--- NOTE | 2024-11-26 13:47 | ED_ITS ---
<Statement entered by Guillermina Salazar DO - 11/29/24 17:33> I was consulted by the COSME, and we discussed the complexity of problems being addressed. I approve the treatment and management plan for this patient's care in the emergency department, thus performing a substantial portion of the medical decision making. Guillermina Salazar DO Discharge Plan Disposition Patient Disposition: Left Against Medical Advice Prescriptions Prescriptions: No Action sulfamethoxazole-trimethoprim [Bactrim DS] 800-160 mg tablet 1 tab PO BID 7 Days Qty: 14 0RF Referrals Follow up/Referrals: Provider,Referral, [Primary Care Provider, Medical] - See instructions Clinical Impressions Clinical Impression: Abdominal pain Instructions Patient Instructions: DI for Acute Abdominal Pain Print Language Print Language: North Korean Discharge ED Provider: Guillermina Salazar General Adult HPI General Chief complaint: Abdominal Pain Stated complaint: abdominal pain Time Seen by Provider: 11/26/24 13:40 Mode of Arrival: EMS Source of Information: Patient Description of Symptoms (Recalled from ER Triage Doc. by RN): pt c/o RUQ pain that is 10/10 x2d. pt was seen here on 11/16 and dx with gallbladder issues. pt was scheduled with her surgeon today to follow up for her gallbladder, however, she did not go because of her pain N/V. LMP now. History of Present Illness HPI narrative: patient is a 24-year-old female PMHx bipolar, history of drug use who presents to the ED with complaints of right upper quadrant abdominal pain. Patient states she has had intermittent abdominal pain in the right upper quadrant for over 1 week now. Related Data Previous Rx's ?Medication ?Instructions ?Recorded sulfamethoxazole 800 1 tab PO BID 7 days #14 tabs 11/20/24 mg-trimethoprim 160 mg tablet (Bactrim DS) Allergies Allergy/AdvReac Type Severity Reaction Status Date / Time azithromycin (AZITHROMYCIN) Allergy Intermediate Unknown Verified 11/26/24 13:47 allergy reaction montelukast (From SINGULAIR) Allergy Intermediate Unknown Verified 11/26/24 13:47 allergy reaction [facility] Disclaimer: The information contained in this section may have been updated after the patient was seen, as this information can be updated by other users. 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 (exposure to others) Have you lived/traveled outside US in past 30 days?: No Contact w/someone who lives/traveled outside US past 30 days?: No Exposure to someone with infectious disease in past 14 days?: No Do you have a fever (greater than 100.4 F or 38 C)?: No Have you tested positive for COVID-19?: No Exposed to someone with COVID-19 in past 14 days?: No Do you have a sore throat?: No Do you have a cough?: No Do you have any weakness?: No Do you have any diarrhea?: No Are you experiencing any unusual bleeding?: No Do you have any muscle aches/pain?: No Do you have any abdominal pain?: No Are you experiencing loss of taste or smell?: No Other Medical History Have you received the Flu Vaccine for this season: No Have you received the Pneumonia Vaccine: No ROS Obtained: Yes Systems reviewed as appropriate & no additional complaints except as documented Physical Exam General General appearance: alert Head Head exam: atraumatic Eye Eye exam: Present PERRL Chest Chest inspection: Present normal inspection Respiratory Respiratory exam: Present normal lung sounds bilaterally Cardiovascular Cardiovascular exam: Present regular rate Abdominal Exam Abdominal exam: Present soft and tenderness (RUQ) Neurological Exam Neurological exam: Present alert and oriented X3 Skin Skin exam: Present warm Medical Decision Making Medical Records Screening: Per USPSTF and CDC recommendations, given the prevalence of disease in our region, it is our hospital?s policy to screen for HIV and viral Hepatitis for all patients aged 18 and over and those with ongoing risk factors. Nazario Inquiry Pt receiving controlled substance: No Vital Signs: 11/26/24 13:37 Temperature 97.6 F Temperature Source Oral Pulse Rate [Left] 87 Respiratory Rate 16 Blood Pressure [Right Arm] 105/69 L Blood Pressure Mean [Right Arm] 81 Blood Pressure Source [Right Arm] Automatic Cuff Blood Pressure Position [Right Arm] Sitting 02 Sat by Pulse Oximetry 99 Oxygen Delivery Method Room Air Orders (Tests/Meds): ED MEDICATIONS Generic Name Dose Route Start Last Admin Trade Name Danielle PRN Reason Stop Dose Admin Sodium Chloride 1,000 mls @ 999 mls/hr 11/26/24 13:41 Sod Chlor 0.9% 1000ml Bag IV 11/26/24 14:41 .Q1H1M ONE Morphine Sulfate 4 mg 11/26/24 13:41 Morphine 4mg/Ml Syringe IV 11/26/24 13:42 ONCE ONE Ondansetron HCl 4 mg 11/26/24 13:41 Ondansetron 4mg/2ml Vial IV 11/26/24 13:42 ONCE ONE ORDERS Category Date Time Status US RUQ [US abdomen limited] Stat Exams 11/26/24 13:42 Ordered CBC w/Auto Diff [Complete Blood Count Auto Diff] Stat Lab 11/26/24 13:41 Ordered CMP [Comprehensive Metabolic Panel] Stat Lab 11/26/24 13:41 Ordered HCG Qualitative, Serum Stat Lab 11/26/24 13:41 Ordered Lactic Acid Stat Lab 11/26/24 13:41 Ordered Lipase Stat Lab 11/26/24 13:41 Ordered Urinalysis and Microscopic Stat Lab 11/26/24 13:41 Ordered Medical Decision Narrative: In summary, patient is a 24-year-old female PMHx bipolar, history of drug use who presents to the ED with complaints of right upper quadrant abdominal pain. Patient states she has intermittent abdominal pain in the right upper quadrant for over 1 week now. She was evaluated in the ED on 11/16/2024, records reviewed, at that time she was advised she has nonspecific lung nodules that need follow- up, she was advised she will need to follow-up with general surgery for her gallbladder. Patient states she did not follow-up with general surgery. She states she has been unable to tolerate PO for 2 days now and persistent right upper quadrant pain. Denies fever, chills, body aches, headache, back pain, dysuria. Upon initial evaluation, she is alert and oriented, hemodynamically stable. Her physical exam is remarkable for right upper quadrant abdominal tenderness, abdomen is soft. Patient initially refused CT scan, ultrasound, labs and IV. I spoke to patient at length and advised her although she may refuse any part of her treatment she does not want, I am unable to evaluate her without labs or imaging. I discussed with her we could start an IV, treat her pain and nausea and rehydrate her with IV fluids. At the time I spoke with her, she was agreeable to plan of care. Immediately after reviewing, patient refused IV access, labs, imaging to the nursing staff. Patient was advised that we are unable to care for her if she refuses treatment, she continues to refuse treatment, she remains alert and oriented, she signed out AGAINST MEDICAL ADVICE. Patient was advised of the risk of leaving the ED AGAINST MEDICAL ADVICE including which she verbalized understanding of. Critical Care Critical Care Time Critical Care Time: No
--- NOTE | 2024-11-26 13:54 | PC.NURSE ---
At approx. 1345hrs, I attempted to established an IV on this patient. 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 Patient stated she would like to leave and would rather sit at home in pain. I provided this patient an [employer] Medical Advice Form in which she signed.
[2024-11-26 14:02] VITALS: BP 0/0; PULSE 0; RESP 0; TEMP -17.7; TEMP 0; O2SAT 0
== END 2024-11-26 13:54 | disposition left against medical advice (07) ==
PROVIDERS: Emergency Provider Student in an Organized Health Care Education/Training Program
DX: R10.11 Right upper quadrant pain (principal)
CPT/HCPCS: 99283

== ENCOUNTER 2024-12-05 17:30 | Outpatient (CLI) | payer MEDICAID, SELFPAY ==
--- OUTSIDE RECORDS SUMMARY | 2024-11-26 22:12 | XMS_ITS | Encounter Summary ---
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 Phone [facility], [facility] Primary Care Provider Reason for Visit * Auth/Cert (Routine) Specialty Diagnoses / Procedures Referred By Portillo t Referred To Contact Diagnoses Acute pancreatitis CHOLEDOCHOLITHIASIS [facility] [address] [place] [address] Phone: tel: fax: [facility] [address] [place] [address] Phone: tel: fax: Referral ID Status Reason Start Date Expiration Date Visits Re quested Visits Authorized [id number] 1 1 Encounter Details Date Type Department Care Team (Late st Contact Info) Description 11/26/2024 10:12 PM EDT - 11/30/2024 5:05 PM EDT Hospital Encounter [facility] [address] [place] [address] Urvashi Meza MD [address] [facility] [address] [place] [address] Twin Goldstein PA-C [facility] [address] [address] Ana Erwin PA-C [address] [place], [place] [id number] Rigoberto Medina NP [address] [place], [place] [id number] Gerard Gil DO [address] [facility] [address] [place] [address] Medical history unknown Discharge Disposition: Home or Self Care Social History Tobacco Use Types Packs/Day Years Used Date Smoking Tobacco: Never Assessed Comments Unknown Sex and Gender Information Value Date Recorded Sex Assigned at Not on file Legal Sex Female 5:26 PM CDT Gender Identity Not on file Sexual Orientation Not on file documented as of this encounter Last Filed Vital Signs Vital Sign Reading Time Taken Comments Blood Pressure 106/68 11/30/2024 8:13 AM EDT Pulse 86 11/30/2024 8:13 AM EDT Temperature 36.2 C (97.1 F) 11/30/2024 8:13 AM EDT Respiratory Rate 17 11/30/2024 8:13 AM EDT Oxygen Saturation 99% 11/30/2024 8:13 AM EDT Inhaled Oxygen Concentration - - Weight 87.5 kg (193 lb) 11/29/2024 9:35 AM EDT Height 160 cm (5' 3 ) 11/29/2024 9:35 AM EDT Body Mass Index 34.19 11/29/2024 9:35 AM EDT documented in this encounter Discharge Summaries * Rigoberto Medina NP - 11/30/2024 8:20 AM EDT Images from the original note were not included. DISCHARGE SUMMARY Patient Name: Alison Mathew : 2000 Primary Care Physician: ANDRE [facility] Date of Admission: 11/26/2024 Date of Discharge: 11/30/24 Consultations:GI; general surgery Discharge Diagnoses:gallstone pancreatitis Reason for Admission:abdominal pain Hospital Course: Patient admitted under hospital medicine services. GI and general surgery consulted. She underwent MRCP which identified acute mild interstitial pancreatitis, mild gallbladder wall thickening and numerous gallstones seen. Minimal biliary ductal dilation. Findings equivocal for acute cholecystitis. No evidence of choledocholithiasis. She was treated with IV Zosyn and fluids. LFTs and lipase improved since admission. She did have a mildly elevated WBC to 11.6. Unfortunately, then refused any additional laboratory studies due to pain from phlebotomy. She underwent laparoscopic cholecystectomy with Dr. Priest 11/19/2024. Findings of gallbladder packed with 2 mm stones, wide cystic duct, and mildly inflamed gallbladder. Surgeon recommended continued monitoring overnight for diet advancement the following morning. Patient tolerated the diet. Per general surgery weight restriction of 15 pounds for 3 weeks, okay to shower in 2 days. Patient will need to follow-up with Dr. Priest in 3 weeks following discharge. Strongly encouraged tobacco cessation and diet/lifestyle changes at discharge. Patient continued to leave unit frequently to smoke. Understands this is a direct correlation with future acute pancreatitis episodes. Recommended the patient establish with PCP at discharge. Patient remained hemodynamically stable on day of discharge. As needed pain regimen provided at the time of discharge per surgery recommendations. Studies Performed: MR abdomen without IV contrast MRCP Final Result Acute mild interstitial pancreatitis. Mild gallbladder wall thickening and numerous gallstones seen in the gallbladder which is not distended. Minimal biliary ductal dilatation. Findings are equivocal for acute cholecystitis. Please correlate. No evidence of choledocholithiasis. Images reviewed, interpreted, and dictated by Salvador Pedersen M.D. Procedures Performed: Date: 11/29/2024 Procedures: Procedure(s): Cholecystectomy, tap block laparoscopic Diagnosis: Pre-Op Diagnosis Codes: * Medical history unknown [Z78.9] cholecystitis, gallstone pancreatitis Post-Op Diagnosis Codes: * Medical history unknown [Z78.9] cholecystitis, gallstone pancreatitis Indications: Alison Mathew is an 24 y.o. female with history of multiple episodes of biliary colic over the last 4 years. She presented with severe worst ever epigastric pain nausea and vomiting. CT scan showed gallstones and acute pancreatitis. MRCP showed no common bile duct stones. She had history of methamphetamine use and is followed by drug court. Her pancreatitis symptoms were improving.. The risks, benefits, and alternatives of the above procedure were discussed and the patient has elected to proceed. Surgeons: Surgeons and Role: * Daryl Priest MD - Primary Findings: Gallbladder packed with 2 mm gallstones. Wide cystic duct. Mild inflammation gallbladder. Procedure Details: The patient was seen in the preoperative area. The site of surgery was properly noted/marked if necessary per policy. The patient has been actively warmed in preoperative area. Preoperative antibiotics have been ordered and given within 1 hours of incision. Venous thrombosis prophylaxis have been ordered including bilateral sequential compression devices. Abdomen prepped very sterilely Veress needle placed in left upper quadrant and insufflated. 5 Lilly trocar placed above umbilicus and 2 additional ones placed in right subcostal. 12 mm trocar placed right epigastrium. tap block done. Gallbladder grasped reflected cephalad. Peritoneal adhesions were freed off cystic duct cystic artery neckof the gallbladder. Critical view obtained. Cystic artery controlled with clips and divided with LigaSure device. Cystic duct was carefully dissected out. Was wider than normal. Hem-o-manuelito clip was placed across the proximal cystic duct. A small opening was made and some gallstones were milked from the cystic duct into the field and later retrieved. Now 2 more Hem-o-manuelito clips were placed over the mid cystic duct and it was divided Just grasping the gallbladder caused some biliary spillage and stone spillage this was also lavagedand evacuated the of the case Gallbladder dissected off the gallbladder fossa and removed in abdomen Flexiseq. Right quadrant started back to left was clear. There is no bleeding. The laparoscopic fascial defect closed with 0 Vicryl suture. Wound irrigated. 3 Barcus to close subcutaneous layer. 4-0 Monocryl used to close skin. Dermabond dressing applied. Anesthesia: General Estimated Blood Loss: 5 mL Discharge Medications: Your medication list START taking these medications Instructions Comments Quantity Refills * acetaminophen 325 MG tablet Commonly known as: TYLENOL Take 1 tablet (325 mg total) by mouth every 4 (four) hours for 2 days. 12 tablet 0 * acetaminophen 500 MG tablet Commonly known as: Tylenol Extra Strength Start taking on: December 02, 2024 Take 1 tablet (500 mg total) by mouth every 6 (six) hours as needed for pain for up to 2 days. 8 tablet 0 HYDROcodone-acetaminophen 5-325 mg per tablet Commonly known as: NORCO Take 1 tablet by mouth every 6 (six) hours as needed for pain for up to 2 days. Max Daily Amount: 4tablets 8 tablet 0 ibuprofen 200 MG tablet Commonly known as: MOTRIN Take 1 tablet (200 mg total) by mouth every 4 (four) hours for 5 days. 30 tablet 0 * This list has 2 medication(s) that are the same as other medications prescribed for you. Read thedirections carefully, and ask your doctor or other care provider to review them with you. Where to Get Your Medications These medications were sent to [facility] [address] [place] [address] [address] [facility] [address], [facility] [address] acetaminophen 325 MG tablet acetaminophen 500 MG tablet HYDROcodone-acetaminophen 5-325 mg per tablet ibuprofen 200 MG tablet Physical Exam Constitutional: Appearance: She is obese. HENT: Head: Normocephalic. Nose: Nose normal. Mouth/Throat: Mouth: Mucous membranes are moist. Pharynx: Oropharynx is clear. Eyes: Pupils: Pupils are equal, round, and reactive to light. Cardiovascular: Rate and Rhythm: Normal rate. Pulses: Normal pulses. Heart sounds: Normal heart sounds. Pulmonary: Effort: Pulmonary effort is normal. Breath sounds: Normal breath sounds. Abdominal: General: Bowel sounds are normal. Palpations: Abdomen is soft. Musculoskeletal: General: Normal range of motion. Cervical back: Normal range of motion. Skin: General: Skin is warm. Capillary Refill: Capillary refill takes less than 2 seconds. Neurological: General: No focal deficit present. Mental Status: She is alert and oriented to person, place, and time. Mental status is at baseline. Psychiatric: Mood and Affect: Mood normal. Discharge Instructions: - Please follow up with your PCP within 1 week for hospital follow up visit - Please continue taking your medications as prescribed on discharge - Do not take more than 4000mg tylenol from all sources - While you are taking Huguenot please use Tylenol 325 mg tablets. After you are no longer using Norcoit is okay to use Tylenol 500 mg tablets. Discharge Diet: Regular Discharge Activity: As tolerated Discharge Dispo: Home Discharge condition: Stable and improved Discharge Follow Up: Contact information for follow-up [facility] Relationship: PCP - General [facility] [place] [address] Next Steps: Follow up in 1 week(s) Daryl Priest MD Specialty: General Surgery, Surgery [address] [place] [address] Next Steps: Follow up in 3 week(s) Primary care provider (PCP) Next Steps: Follow up Time Spent: 40 minutes Electronically signed by Rigoberto Medina NP, 11/30/24, 8:27 AM EDT Cosigned by José Miguel Niño DO at 12/01/2024 1:49 PM EDT documented in this encounter Medications at Time of Discharge acetaminophen (Tylenol Extra Strength) 500 MG tablet Take 1 tablet (500 mg total) by mouth every 6 (six) hours as needed for pain for up to 2 days. 8 tablet 12/02/2024 12/04/2024 acetaminophen (TYLENOL) 325 MG tablet Take 1 tablet (325 mg total) by mouth every 4 (four) hours for 2 days. 12 tablet 11/30/2024 12/02/2024 HYDROcodone-aceta minophen (NORCO) 5-325 mg per tablet Take 1 tablet by mouth every 6 (six) hours as needed for pain for up to 2 days. Max Daily Amount: 4 tablets 8 tablet 11/30/2024 12/02/2024 ibuprofen (MOTRIN) 200 MG tablet Take 1 tablet (200 mg total) by mouth every 4 (four) hours for 5 days. 30 tablet 11/30/2024 12/05/2024 documented as of this encounter Progress Notes * Daryl Priest MD - 11/30/2024 8:11 AM EDT Subjective She has some decrease in her abdominal pain. Is trying diet Review of Systems Objective Last Recorded Vitals Blood pressure 105/64, pulse 76, temperature 98.1 ??F (36.7 ??C), temperature source Oral, resp. rate 18, height 1.6 m (5' 3 ), weight 87.5 kg (193 lb), SpO2 99%. Physical Exam No dyspnea. Request that I not examine her abdomen. Wants to fall back to sleep Labs: Results for orders placed or performed during the hospital encounter of 11/26/24 (from the past 24 hours) hCG, quantitative, Status: Normal Collection Time: 11/29/24 9:26 AM Result Value Ref Range HCG Serum Quant <3 0 - 5 mIU/mL MR abdomen without IV contrast MRCP Narrative: MRCP HISTORY: Concern for pancreatitis and choledocholithiasis. PROCEDURE: MRI images of the abdomen were performed. An MRCP was also performed. 3 D Reconstruction images were also performed. FINDINGS: Axial localization images are limited by artifact. The gallbladder is filled with numerous small stones. No evidence of acute cholecystitis. The biliary tree is minimally dilated to 4-5 mm. No definite filling defects are identified. Pancreas is prominent and there is mild surrounding inflammatory change which extends in the retroperitoneum inferiorly. No pancreatic ductal dilatation. No organized fluid collection is evident. Study is limited for evaluation of free air. Impression: Acute mild interstitial pancreatitis. Mild gallbladder wall thickening and numerous gallstones seen in the gallbladder which is not distended. Minimal biliary ductal dilatation. Findings are equivocal for acute cholecystitis. Please correlate. No evidence of choledocholithiasis. Images reviewed, interpreted, and dictated by Salvador Pedersen M.D. Assessment Gallstone pancreatitis History of multiple episodes of biliary colic over the last 4 years MRCP shows no common bile duct stones. Gallbladder distended filled with small stones. Stable status post laparoscopic cholecystectomy. Plan DC home on regular diet. Tylenol/Motrin scheduled for 2 days and as needed * Ana Erwin PA-C - 11/29/2024 3:37 PM EDT Hospitalist Progress Note Date of Service: 11/29/2024 PCP: ANDRE [facility] Chief Complaint: abdominal pain Subjective Alison Mathew is a 24 y.o. female on hospital day 3. The principal reason for today's follow up visit is Acute pancreatitis. Interval History: - Patient seen and evaluated this morning. Generalized dull abdominal pain. No nausea or vomiting. - She is angry that she keeps getting labs drawn (daily). Frequently leaving unit to smoke. - Underwent lap sophia with Dr. Priest today. Discussed case with him. The patient had spillage of bile from a thin-walled gallbladder. Had a wide cystic duct that may have transmitted stones into common duct. Tons of 2 mm stones. Best to watch her overnight and make sure she tolerates something by mouth tomorrow with no increased pain before sending home. If patient wishes to leave, would need gregorio AMA. Review of Systems Constitutional: Negative for chills and fever. Eyes: Negative for blurred vision. Respiratory: Negative for cough and shortness of breath. Cardiovascular: Negative for chest pain and palpitations. Gastrointestinal: Positive for abdominal pain. Negative for diarrhea, nausea and vomiting. Genitourinary: Negative for dysuria and hematuria. Neurological: Negative for dizziness and focal weakness. Objective Vitals: Temp: [97.3 ??F (36.3 ??C)-98.1 ??F (36.7 ??C)] 97.7 ??F (36.5 ??C) Pulse: [80-105] 82 Resp: [16-21] 21 BP: (87-129)/(50-84) 87/52 Intake/Output: Intake/Output Summary (Last 24 hours) at 11/29/2024 1537 Last data filed at 11/29/2024 1427 Gross per 24 hour Intake 1090 ml Output -- Net 1090 ml Physical Exam Vitals and nursing note reviewed. Constitutional: General: She is not in acute distress. Appearance: Normal appearance. She is obese. HENT: Head: Normocephalic and atraumatic. Cardiovascular: Rate and Rhythm: Normal rate. Pulses: Normal pulses. Pulmonary: Effort: Pulmonary effort is normal. No respiratory distress. Abdominal: General: There is no distension. Tenderness: There is abdominal tenderness. Musculoskeletal: General: Normal range of motion. Skin: General: Skin is warm and dry. Capillary Refill: Capillary refill takes less than 2 seconds. Neurological: Mental Status: She is alert and oriented to person, place, and time. Mental status is at baseline. Labs: Recent Labs Lab(s) Units 11/28/24 0959 11/27/24 1138 11/27/24 0625 WBC K/??L 11.6* -- 9.5 HGB GM/DL 13.7 -- 13.7 HCT % 40.3 -- 41.3 PLT K/CU MM 252 -- 224 NA meq/L 140 -- 139 K meq/L 3.6 -- 3.6 CL meq/L 110 -- 108 CO2 meq/L 22 -- 26 BUN mg/dL 7.8 -- 14.8 CREATININE mg/dL 0.65 -- 0.74 EGFR mL/min/1.73m2 126 -- 116 GLUCOSE mg/dL 94 116* 102* CALCIUM mg/dL 8.7 -- 8.4 ALKPHOS U/L 115 -- 138 BILITOT mg/dL 0.5 -- 1.0 PROT g/dL 7.0 -- 6.4 ALT U/L 105* -- 170* AST U/L 25 -- 68* Scheduled Meds: [Transfer Hold] pantoprazole 40 mg intravenous Daily 40 mg at 11/29/24 0810 [Transfer Hold] piperacillin-tazobactam 3.375 g intravenous Q6H 3.375 g at 11/29/24 1427 Continuous Infusions: Current Facility-Administered Medications Medication Dose Route Frequency Provider Last Rate Last Admin [Transfer Hold] acetaminophen (TYLENOL) tablet 1,000 mg 1,000 mg oral Q6H PRN Twin Goldstein PA-C albuterol 2.5 mg /3 mL (0.083 %) nebulizer solution 2.5 mg 2.5 mg nebulization Once PRN Mp Crespo CRNA atropine 0.4 mg/mL injection 0.4 mg 0.4 mg intravenous Once PRN Mp Crespo CRNA diphenhydrAMINE (BENADRYL) injection 12.5 mg 12.5 mg intravenous Q15 Min PRN Mp Crespo CRNA ePHEDrine sulfate injection 5 mg 5 mg intravenous Q5 Min PRN Mp Crespo CRNA fentaNYL PF (SUBLIMAZE) injection 25 mcg 25 mcg intravenous Q5 Min PRN Mp Crespo CRNA glycopyrrolate (ROBINUL) injection 0.2 mg 0.2 mg intravenous Q5 Min PRN Mp Crespo CRNA [Transfer Hold] hydrALAZINE (APRESOLINE) injection 10 mg 10 mg intravenous Q6H PRN Twin Goldstein PA-C hydrALAZINE (APRESOLINE) injection 10 mg 10 mg intravenous Q20 Min PRN Mp Crespo CRNA [Transfer Hold] HYDROcodone-acetaminophen (NORCO) 5-325 mg per tablet 1 tablet 1 tablet oral Q6H PRN Twin Goldstein PA-C 1 tablet at 11/28/24 2201 [Transfer Hold] HYDROmorphone (DILAUDID) injection 0.5 mg 0.5 mg intravenous Q4H PRN Twin Goldstein PA-C HYDROmorphone (DILAUDID) injection 0.5 mg 0.5 mg intravenous Q10 Min PRN Mp Crespo CRNA ipratropium-albuteroL (DUO-NEB) 0.5 mg-3 mg(2.5 mg base)/3 mL nebulizer solution 3 mL 3 mL nebulization Once PRN Mp Crespo CRNA labetaloL (TRANDATE, NORMODYNE) injection 5 mg 5 mg intravenous Q5 Min PRN Mp Crespo CRNA lactated Ringer's infusion 150 mL/hr intravenous Continuous Twin Goldstein PA-C 150 mL/hr at 11/28/24 2200 150 mL/hr at 11/28/24 2200 lactated Ringer's infusion 100 mL/hr intravenous Continuous Armando Barth MD 100 mL/hr at 11/29/24 1341 Rate Change at 11/29/24 1341 [Transfer Hold] melatonin tablet 3 mg 3 mg oral Every Night PRN Twin Goldstein PA-C midazolam (VERSED) injection 1 mg 1 mg intravenous Q5 Min PRN Mp Crespo CRNA [Transfer Hold] naloxone (NARCAN) injection 0.2 mg 0.2 mg intravenous Q2 Min PRN Twin Goldstein PA-C naloxone (NARCAN) injection 0.4 mg 0.4 mg intravenous Once PRN Mp Crespo CRNA [Transfer Hold] ondansetron (ZOFRAN-ODT) disintegrating tablet 4 mg 4 mg oral Q8H PRN Twin Goldstein PA-C Or [Transfer Hold] ondansetron (ZOFRAN) injection 4 mg 4 mg intravenous Q8H PRN Twin Goldstein PA-C 4mg at 11/29/24 1413 ondansetron (ZOFRAN) injection 4 mg 4 mg intravenous Q15 Min PRN Mp Crespo CRNA oxyCODONE (ROXICODONE) immediate release tablet 5 mg 5 mg oral Once PRN Mp Crespo CRNA [Transfer Hold] pantoprazole (PROTONIX) injection 40 mg 40 mg intravenous Daily Ana Erwin PA-C 40 mg at 11/29/24 0810 [Transfer Hold] piperacillin-tazobactam (ZOSYN) 3.375 g in sodium chloride 0.9 % (NS) MBP 100 mL IVPB 3.375 g intravenous Q6H Twin Goldstein PA-C 33.3 mL/hr at 11/29/24 0810 3.375 g at 11/29/24 1427 promethazine (PHENERGAN) 6.25 mg in sodium chloride 0.9 % (NS) 50 mL IVPB (Immediate Use Only) 6.25mg intravenous Q15 Min PRN Mp Crespo CRNA racemic epinephrine 2.25 % nebulizer solution 0.5 mL 0.5 mL nebulization Once PRN Mp Crespo CRNA [Transfer Hold] sodium chloride flush 10 mL 10 mL intravenous PRN Twin Goldstein PA-C Assessment and Plan Acute gallstone pancreatitis Acute cholecystitis - Patient presented with upper abdominal pain for multiple days. - History of cholelithiasis without cholecystectomy. - Labs at OSH revealed leukocytosis , lipase 2200, alkaline phosphatase 200, AST 190, ALT 330, total bilirubin 1.6. - CTAP at OSH revealed uncomplicated acute pancreatitis. - MRCP with acute mild interstitial pancreatitis. Mild gallbladder wall thickening and numerous gallstones seen. Minimal biliary ductal dilation. Findings equivocal for acute cholecystitis. No evidence of choledocholithiasis. - AST/ALT improved, 68/170 > 25/105. - Lipase 856 > 201. - WBC mildly elevated, 9.5 > 11.6. - GI consulted. No obstruction in MRCP. Signed off. - S/p lap cholecystectomy with Dr. Priest 11/29/2024. Findings of gallbladder packed with 2mm stones. Wide cystic duct and mild inflamed gallbladder. - Recommended continued monitoring post op for diet advancement in am per surgery. - Continue IV LR. - Continue Zosyn 3.375g Q6h. Patient refusing now due to side effect of diarrhea. - Antiemetics and pain control as needed. - CBC, CMP, and lipase in am. Pt refusing additional labs. Tobacco abuse - Discussed smoking cessation with patient, counseling provided. Encouraged continued use of NRT during hospitalization. - Pt frequently leaving unit to smoke. 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 Hx medical noncompliance - Frequent AMA discharges. Diet: Orders Placed This Encounter Procedures NPO diet DVT ppx: ambulatory #GI Ppx (if indicated): Protonix #Code Status: Full Code Discharge Planning: Barriers to discharge: Diet advancement and monitoring post extensive lap sophia per surgery. Expected (tentative) discharge tomorrow. Expected discharge disposition (home, SNF/Rehab, etc): Home Additional discharge needs or delays: TBD Ana Erwin PA-C 11/29/2024 at 8:21 AM Hospitalist [facility] Attending: Dr. Jayme Valdez Voice director supply technology (Traffio) is used for dictation of this note and sound-alike words might be erroneously placed despite reviewing the note for accuracy. Errors in dictation mayreflect use of voice recognition software and not all errors in director supply may have been detected prior to signing. Cosigned by Jim Higgins MD at 11/29/2024 4:02 PM EDT * Silverio Morales RN - 11/29/2024 8:10 AM EDT MaintenaNCE IV fluid stopped. Patient only has 1 PIV and LR is not compatible with scheduled IV Zosyn. Patient refusing to have another PIV placed * Leroy Hampton RN - 11/29/2024 3:50 AM EDT Patient has requested multiple times for her antibiotics and Iv fluids to be disconnected and gone off the floor multiple times as she says she needs to smoke. Patient educated aboout the importance of antibiotics for her and Hydration with pancreatitis. Patient understands implications. Family at bedside during teaching. * Ana Erwin PA-C - 11/28/2024 3:20 PM EDT Hospitalist Progress Note Date of Service: 11/28/2024 PCP: [facility] Chief Complaint: abdominal pain Subjective Alison Mathew is a 24 y.o. female on hospital day 2. The principal reason for today's follow up visit is Acute pancreatitis. Interval History: - Patient seen and evaluated this morning. Pt frequently leaving floor to smoke cigarettes. Encouraged cessation especially given her pancreatitis. - She refused her antibiotics this am due to diarrhea. Tolerating clears. - Getting labs drawn and yelling due to pain. Says she had labs drawn this am already which was notthe case. States she does not want any more labs done. Review of Systems Constitutional: Negative for chills and fever. Eyes: Negative for blurred vision. Respiratory: Negative for cough and shortness of breath. Cardiovascular: Negative for chest pain and palpitations. Gastrointestinal: Positive for abdominal pain. Negative for diarrhea, nausea and vomiting. Genitourinary: Negative for dysuria and hematuria. Neurological: Negative for dizziness and focal weakness. Objective Vitals: Temp: [97.8 ??F (36.6 ??C)-99.6 ??F (37.6 ??C)] 97.8 ??F (36.6 ??C) Pulse: [96-109] 97 Resp: [16] 16 BP: (114-125)/(66-78) 122/78 Intake/Output: Intake/Output Summary (Last 24 hours) at 11/28/2024 1520 Last data filed at 11/28/2024 1300 Gross per 24 hour Intake 360 ml Output -- Net 360 ml Physical Exam Vitals and nursing note reviewed. Constitutional: General: She is not in acute distress. Appearance: Normal appearance. She is obese. HENT: Head: Normocephalic and atraumatic. Cardiovascular: Rate and Rhythm: Tachycardia present. Pulses: Normal pulses. Pulmonary: Effort: Pulmonary effort is normal. No respiratory distress. Abdominal: General: There is no distension. Tenderness: There is abdominal tenderness. Musculoskeletal: General: Normal range of motion. Skin: General: Skin is warm and dry. Capillary Refill: Capillary refill takes less than 2 seconds. Neurological: Mental Status: She is alert and oriented to person, place, and time. Mental status is at baseline. Labs: Recent Labs Lab(s) Units 11/28/24 0959 11/27/24 1138 11/27/24 0625 WBC K/??L 11.6* -- 9.5 HGB GM/DL 13.7 -- 13.7 HCT % 40.3 -- 41.3 PLT K/CU MM 252 -- 224 NA meq/L 140 -- 139 K meq/L 3.6 -- 3.6 CL meq/L 110 -- 108 CO2 meq/L 22 -- 26 BUN mg/dL 7.8 -- 14.8 CREATININE mg/dL 0.65 -- 0.74 EGFR mL/min/1.73m2 126 -- 116 GLUCOSE mg/dL 94 116* 102* CALCIUM mg/dL 8.7 -- 8.4 ALKPHOS U/L 115 -- 138 BILITOT mg/dL 0.5 -- 1.0 PROT g/dL 7.0 -- 6.4 ALT U/L 105* -- 170* AST U/L 25 -- 68* Scheduled Meds: pantoprazole 40 mg intravenous Daily 40 mg at 11/27/24 1158 piperacillin-tazobactam 3.375 g intravenous Q6H IVPB Stopped at 11/28/24 0430 Continuous Infusions: Current Facility-Administered Medications Medication Dose Route Frequency Provider Last Rate Last Admin acetaminophen (TYLENOL) tablet 1,000 mg 1,000 mg oral Q6H PRN Twin Goldstein PA-C hydrALAZINE (APRESOLINE) injection 10 mg 10 mg intravenous Q6H PRN Twin Goldstein PA-C HYDROcodone-acetaminophen (NORCO) 5-325 mg per tablet 1 tablet 1 tablet oral Q6H PRN Twin Goldstein PA-C 1 tablet at 11/27/24 1504 HYDROmorphone (DILAUDID) injection 0.5 mg 0.5 mg intravenous Q4H PRN Twin Goldstein PA-C lactated Ringer's infusion 150 mL/hr intravenous Continuous Twin Goldstein PA-C 150 mL/hr at 11/27/24 1505 150 mL/hr at 11/27/24 1505 melatonin tablet 3 mg 3 mg oral Every Night PRN Twin Goldstein PA-C naloxone (NARCAN) injection 0.2 mg 0.2 mg intravenous Q2 Min PRN Twin Goldstein PA-C ondansetron (ZOFRAN-ODT) disintegrating tablet 4 mg 4 mg oral Q8H PRN Twin Goldstein PA-C Or ondansetron (ZOFRAN) injection 4 mg 4 mg intravenous Q8H PRN Twin Goldstein PA-C pantoprazole (PROTONIX) injection 40 mg 40 mg intravenous Daily Ana Erwin PA-C 40 mg at 11/27/24 1158 piperacillin-tazobactam (ZOSYN) 3.375 g in sodium chloride 0.9 % (NS) MBP 100 mL IVPB 3.375 g intravenous Q6H Twin Goldstein PA-C IVPB Stopped at 11/28/24 0430 sodium chloride flush 10 mL 10 mL intravenous PRN Twin Goldstein PA-C Assessment and Plan Acute pancreatitis Acute cholecystitis Biliary obstruction, improving Hx cholelithiasis - Patient presented with upper abdominal pain for multiple days. - History of cholelithiasis without cholecystectomy. - Labs at OSH revealed leukocytosis , lipase 2200, alkaline phosphatase 200, AST 190, ALT 330, total bilirubin 1.6. - CTAP at OSH revealed uncomplicated acute pancreatitis. - MRCP with acute mild interstitial pancreatitis. Mild gallbladder wall thickening and numerous gallstones seen. Minimal biliary ductal dilation. Findings equivocal for acute cholecystitis. No evidence of choledocholithiasis. - AST/ALT improving, 68/170 > 25/105. - Lipase 856 > 201. - WBC mildly elevated, 9.5 > 11.6. - GI consulted. No obstruction in MRCP. Signed off. - Surgery plan for CCY 11/29/2024. - Continue IV LR 150cc/hr. - Clear liquid diet. Advance as tolerated. NPO at [place] for CCY. - Continue Zosyn 3.375g Q6h. Patient refusing now due to side effect of diarrhea. - Antiemetics and pain control as needed. - CBC, CMP, and lipase in am. Tobacco abuse - Discussed smoking cessation with patient, counseling provided. Encouraged continued use of NRT during hospitalization. - Pt frequently leaving unit to smoke. 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 Hx medical noncompliance - Frequent AMA discharges. Diet: Orders Placed This Encounter Procedures Clear Liquid diet NPO diet DVT ppx: ambulatory #GI Ppx (if indicated): Protonix #Code Status: Full Code Discharge Planning: Barriers to discharge: Pending medical improvement, cholecystectomy 11/29. Expected (tentative) discharge in 1-2 days. Expected discharge disposition (home, SNF/Rehab, etc): Home Additional discharge needs or delays: TBD Ana Erwin PA-C 11/28/2024 at 8:21 AM Hospitalist [facility] Attending: Dr. Jayme Valdez Voice director supply technology (Traffio) is used for dictation of this note and sound-alike words might be erroneously placed despite reviewing the note for accuracy. Errors in dictation mayreflect use of voice recognition software and not all errors in director supply may have been detected prior to signing. Cosigned by Jim Higgins MD at 11/29/2024 6:31 AM EDT * Daryl Priest MD - 11/28/2024 9:37 AM EDT Subjective She is off the floor all the time. She admits good urine output. Her abdominal pain is less severe. Review of Systems Objective Last Recorded Vitals Blood pressure 120/66, pulse 96, temperature 98.4 ??F (36.9 ??C), temperature source Oral, resp. rate 16, height 1.6 m (5' 3 ), weight 87.5 kg (193 lb), SpO2 97%. Physical Exam Mild discomfort No dyspnea Mild epigastric tenderness. Labs: Results for orders placed or performed during the hospital encounter of 11/26/24 (from the past 24 hours) Glucose, Nova Meter Status: Abnormal Collection Time: 11/27/24 11:38 AM Result Value Ref Range POC-GLUCOSE 116 (H) 70 - 110 mg/dL Body Painter [id number] MR abdomen without IV contrast MRCP Narrative: MRCP HISTORY: Concern for pancreatitis and choledocholithiasis. PROCEDURE: MRI images of the abdomen were performed. An MRCP was also performed. 3 D Reconstruction images were also performed. FINDINGS: Axial localization images are limited by artifact. The gallbladder is filled with numerous small stones. No evidence of acute cholecystitis. The biliary tree is minimally dilated to 4-5 mm. No definite filling defects are identified. Pancreas is prominent and there is mild surrounding inflammatory change which extends in the retroperitoneum inferiorly. No pancreatic ductal dilatation. No organized fluid collection is evident. Study is limited for evaluation of free air. Impression: Acute mild interstitial pancreatitis. Mild gallbladder wall thickening and numerous gallstones seen in the gallbladder which is not distended. Minimal biliary ductal dilatation. Findings are equivocal for acute cholecystitis. Please correlate. No evidence of choledocholithiasis. Images reviewed, interpreted, and dictated by Salvador Pedersen M.D. Assessment Gallstone pancreatitis History of multiple episodes of biliary colic over the last 4 years MRCP shows no common bile duct stones. Gallbladder distended filled with small stones. Will benefit from laparoscopic cholecystectomy tomorrow afternoon. 4% chance of severe complication which could include bleeding or bile duct injury. Patient agrees and wishes to proceed. History of meth use-in drug court now * Nia Vazquez MD - 11/28/2024 8:54 AM EDT Chart reviewed. MRCP without stone. CCY planning per surgery. We will sign off. Please call with questions or concerns. * Ana Erwin PA-C - 11/27/2024 8:21 AM EDT Hospitalist Progress Note Date of Service: 11/27/2024 PCP: [facility] Chief Complaint: abdominal pain Subjective Alison Mathew is a 24 y.o. female on hospital day 1. The principal reason for today's follow up visit is Acute pancreatitis. Interval History: - Patient seen and evaluated this morning. Pt in hallway getting ready to leave unit to smoke. She reports persisting abdominal pain. Denies N/V. Asking when she can eat. Review of Systems Constitutional: Negative for chills and fever. Eyes: Negative for blurred vision. Respiratory: Negative for cough and shortness of breath. Cardiovascular: Negative for chest pain and palpitations. Gastrointestinal: Positive for abdominal pain. Negative for diarrhea, nausea and vomiting. Genitourinary: Negative for dysuria and hematuria. Neurological: Negative for dizziness and focal weakness. Objective Vitals: Temp: [97.5 ??F (36.4 ??C)-98 ??F (36.7 ??C)] 98 ??F (36.7 ??C) Pulse: [84-104] 104 Resp: [16] 16 BP: (112-131)/(75-82) 131/75 Intake/Output: No intake or output data in the 24 hours ending 11/27/24 1353 Physical Exam Vitals and nursing note reviewed. Constitutional: General: She is not in acute distress. Appearance: Normal appearance. HENT: Head: Normocephalic and atraumatic. Cardiovascular: Rate and Rhythm: Tachycardia present. Pulses: Normal pulses. Pulmonary: Effort: Pulmonary effort is normal. No respiratory distress. Abdominal: General: There is no distension. Tenderness: There is abdominal tenderness. Musculoskeletal: General: Normal range of motion. Skin: General: Skin is warm and dry. Capillary Refill: Capillary refill takes less than 2 seconds. Neurological: General: No focal deficit present. Mental Status: She is alert and oriented to person, place, and time. Mental status is at baseline. Labs: Recent Labs Lab(s) Units 11/27/24 1138 11/27/24 0625 WBC K/??L -- 9.5 HGB GM/DL -- 13.7 HCT % -- 41.3 PLT K/CU MM -- 224 NA meq/L -- 139 K meq/L -- 3.6 CL meq/L -- 108 CO2 meq/L -- 26 BUN mg/dL -- 14.8 CREATININE mg/dL -- 0.74 EGFR mL/min/1.73m2 -- 116 GLUCOSE mg/dL 116* 102* CALCIUM mg/dL -- 8.4 ALKPHOS U/L -- 138 BILITOT mg/dL -- 1.0 PROT g/dL -- 6.4 ALT U/L -- 170* AST U/L -- 68* Scheduled Meds: pantoprazole 40 mg intravenous Daily 40 mg at 11/27/24 1158 piperacillin-tazobactam 3.375 g intravenous Q6H Continuous Infusions: Current Facility-Administered Medications Medication Dose Route Frequency Provider Last Rate Last Admin acetaminophen (TYLENOL) tablet 1,000 mg 1,000 mg oral Q6H PRN Twin Goldstein PA-C hydrALAZINE (APRESOLINE) injection 10 mg 10 mg intravenous Q6H PRN Twin Goldstein PA-C HYDROcodone-acetaminophen (NORCO) 5-325 mg per tablet 1 tablet 1 tablet oral Q6H PRN Twin Goldstein PA-C HYDROmorphone (DILAUDID) injection 0.5 mg 0.5 mg intravenous Q4H PRN Twin Goldstein PA-C lactated Ringer's infusion 150 mL/hr intravenous Continuous Twin Goldstein PA-C 150 mL/hr at 11/26/24 2330 150 mL/hr at 11/26/24 2330 melatonin tablet 3 mg 3 mg oral Every Night PRN Twin Goldstein PA-C naloxone (NARCAN) injection 0.2 mg 0.2 mg intravenous Q2 Min PRN Twin Goldstein PA-C ondansetron (ZOFRAN-ODT) disintegrating tablet 4 mg 4 mg oral Q8H PRN Twin Goldstein PA-C Or ondansetron (ZOFRAN) injection 4 mg 4 mg intravenous Q8H PRN Twin Goldstein PA-C pantoprazole (PROTONIX) injection 40 mg 40 mg intravenous Daily Ana Erwin PA-C 40 mg at 11/27/24 1158 piperacillin-tazobactam (ZOSYN) 3.375 g in sodium chloride 0.9 % (NS) MBP 100 mL IVPB 3.375 g intravenous Q6H Twin Goldstein PA-C sodium chloride flush 10 mL 10 mL intravenous PRN Twin Goldstein PA-C Assessment and Plan Acute pancreatitis Suspected choledocholithiasis Hx cholelithiasis - Patient presented with upper abdominal pain for multiple days. - History of cholelithiasis without cholecystectomy. - Labs at OSH revealed leukocytosis , lipase 2200, alkaline phosphatase 200, AST 190, ALT 330, total bilirubin 1.6. - CTAP at OSH revealed uncomplicated acute pancreatitis. - WBC normalized to 9.5 today, AST/ALT improving 68/170, total bilirubin now normal, 1.0, alk phos 138, lipase 856. - Pt received IV Zosyn at OSH which has been continued. - MRCP still pending. - GI consulted. Recommended surgery consult for CCY. - Continue IV LR 150cc/hr. - May advance to clears per GI. - Antiemetics and pain control as needed. - CMP and lipase in am. Nicotine abuse - Discussed smoking cessation with patient, counseling provided. Encouraged continued use of NRT during hospitalization. - Pt frequently leaving unit to smoke. Diet: Orders Placed This Encounter Procedures Clear Liquid diet DVT ppx: ambulatory #GI Ppx (if indicated): Protonix #Code Status: Full Code Discharge Planning: Barriers to discharge: Pending medical improvement, MRCP pending, possible ERCP +/- cholecystectomy. Expected (tentative) discharge in 2-3 days Expected discharge disposition (home, SNF/Rehab, etc): Home Additional discharge needs or delays: TBD Ana Erwin PA-C 11/27/2024 at 8:21 AM Hospitalist [facility] Attending: Dr. Jayme Valdez Voice director supply technology (Traffio) is used for dictation of this note and sound-alike words might be erroneously placed despite reviewing the note for accuracy. Errors in dictation mayreflect use of voice recognition software and not all errors in director supply may have been detected prior to signing. Cosigned by Jim Higgins MD at 11/28/2024 7:02 AM EDT documented in this encounter H&P Notes * Twin Goldstein PA-C - 11/26/2024 10:18 PM EDT [facility] Patient Name: Alison Mathew : 2000 Date: 11/26/2024 PCP: [facility] Date of Admission: 11/26/2024 Chief Complaint: Abdominal pain History of Present Illness Alison Mathew is a 24 y.o. female with history of cholelithiasis who presents to [facility] in [place], [place] for further evaluation and management of abdominal pain for several days. Patient presented from outlying facility complaining of upper abdominal pain which been going onfor several days. Patient reportedly does have a history of gallstones and has not received a cholecystectomy. Patient was being treated with Zosyn antibiotics probably due to leukocytosis. Laboratory workup showed leukocytosis with left shift, lipase 2200, alkaline phosphatase 200, AST/ALT 190/330, and total bilirubin 1.6. CT imaging demonstrated uncomplicated acute pancreatitis. Due to the patient having biliary dysfunction on lab work transfer was requested for GI services for MRCP and possible ERCP. Past Medical History: No past medical history on file. Past Surgical History: No past surgical history on file. Social History: Family History: No family history on file. 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 Review of Systems A 14 point review of systems was obtained and is negative unless otherwise stated in the HPI. Available past medical, social and family history reviewed. Objective Vitals: BP: ()/() Arterial Line BP 1: ()/() Intake/Output: No intake or output data in the 24 hours ending 11/26/24 2218 Physical Exam Vitals reviewed. HENT: Head: Normocephalic and atraumatic. Eyes: Extraocular Movements: Extraocular movements intact. Conjunctiva/sclera: Conjunctivae normal. Pupils: Pupils are equal, round, and reactive to light. Cardiovascular: Pulses: Normal pulses. Heart sounds: Normal heart sounds. Pulmonary: Effort: Pulmonary effort is normal. Breath sounds: Normal breath sounds. Abdominal: General: Bowel sounds are normal. Tenderness: There is abdominal tenderness. Musculoskeletal: Cervical back: Normal range of motion. Neurological: Mental Status: She is alert and oriented to person, place, and time. Psychiatric: Mood and Affect: Mood normal. Behavior: Behavior normal. Thought Content: Thought content normal. Recent Labs: No results found for this visit on 11/26/24 (from the past 24 hours). Microbiology Results (last 7 days) No results found for the last 168 hours. Radiology: Radiology Results (last 3 days) No results found for the last 72 hours. All Documented Medications: Scheduled Meds: Continuous Infusions: Current Facility-Administered Medications Medication Dose Route Frequency Provider Last Rate Last Admin acetaminophen (TYLENOL) tablet 1,000 mg 1,000 mg oral Q6H PRN Twin Goldstein PA-C hydrALAZINE (APRESOLINE) injection 10 mg 10 mg intravenous Q6H PRN Twin Goldstein PA-C HYDROcodone-acetaminophen (NORCO) 5-325 mg per tablet 1 tablet 1 tablet oral Q6H PRN Twin Goldstein PA-C HYDROmorphone (DILAUDID) injection 0.5 mg 0.5 mg intravenous Q4H PRN Twin Goldstein PA-C melatonin tablet 3 mg 3 mg oral Every Night PRN Twin Goldstein PA-C naloxone (NARCAN) injection 0.2 mg 0.2 mg intravenous Q2 Min PRN Twin Goldstein PA-C ondansetron (ZOFRAN-ODT) disintegrating tablet 4 mg 4 mg oral Q8H PRN Twin Goldstein PA-C Or ondansetron (ZOFRAN) injection 4 mg 4 mg intravenous Q8H PRN Twin Goldstein PA-C sodium chloride flush 10 mL 10 mL intravenous PRN Twin Goldstein PA-C Assessment and Plan #Acute pancreatitis #Biliary obstruction - Patient having upper abdominal pain for several days. History of cholelithiasis without cholecystectomy. - Leukocytosis, lipase 2200, alkaline phosphatase 200, AST 190, ALT 330, total bilirubin 1.6. - CT imaging showed uncomplicated acute pancreatitis. - Patient was receiving Zosyn antibiotics due to leukocytosis. - Consult GI, appreciate assistance - Ordered MRCP - Will monitor off antibiotics - Recommend general surgery consult for cholecystectomy evaluation following GI recommendations. - IV fluids with lactated Ringer's at 150 cc/hour. - Pain control as needed - Antiemetics as needed - Morning CBC, CMP ordered. -Laboratory work and pertinent imaging results independently reviewed as noted in HPI. -Continue to monitor electrolytes with AM metabolic panel and replete as appropriate. -Monitor WBC count to assess for developing / worsening infection and hemoglobin with AM CBC. -Intermittent BP and pulse oximetry monitoring per unit parameters. -Continue appropriate home medications for chronic problems as ordered below. -After reviewing this patient's presentation, labs, imaging, and medical record and discussion withsupervising physician, we have to decided to admit them. They will require inpatient admission requiring >48hrs for work up and stabilization of their condition. - Moderate complexity of medical decision making required due to patient having acute pancreatitis. -Evaluated 11/26/2024, 10:18 PM I, Twin Goldstein, have personally reviewed pertinent laboratory, EKG, and imaging results, as wellas documentation in the patient's EMR and discussed with supervising physician as necessary. Laboratory and imaging orders per the above plan have been reviewed and addressed, please see orders below. Home medications have been reviewed and restarted if appropriate. Patient's case, assessment, and plan have been discussed on this date with patient and RN. Nutrition: Orders Placed This Encounter Procedures NPO Except: Sips with meds VTE prophylaxis: SCDs AM orders including labs/radiology/procedures placed. Code Status: Current Code Status Full code Disposition: Admit Prognosis: TBD Signed: Twin Goldstein PA-C 11/26/2024, 10:18 PM Voice director supply technology (Traffio) is used for dictation of this note and sound-alike words might be erroneously placed despite reviewing the note for accuracy. Errors in dictation mayreflect use of voice recognition software and not all errors in director supply may have been detected prior to signing. Active Orders Lab Magnesium Frequency: PRN Number of Occurrences: Until Specified Order Comments: If Mg less than or equal to 1.7 mg/dL previous day Potassium Frequency: PRN Number of Occurrences: Until Specified Order Comments: If Potassium Level Less than 3.5 mmol/L. Draw 1 hour after replacement and in the AM Diet NPO Except: Sips with meds Frequency: Effective Now Number of Occurrences: Until Specified Nursing Ambulate TID Frequency: Until Discontinued Number of Occurrences: Until Specified Apply sequential compression device Frequency: Until Discontinued Number of Occurrences: Until Specified Continuous Pulse Oximetry Frequency: Until Discontinued Number of Occurrences: Until Specified Intake and Output Frequency: Q Shift Number of Occurrences: Until Specified Notify provider of change in patient condition Frequency: Until Discontinued Number of Occurrences: Until Specified Notify provider per standard parameters Frequency: Until Discontinued Number of Occurrences: Until Specified Vital Signs Frequency: Q4H Number of Occurrences: Until Specified Code Status Full code Frequency: Continuous Number of Occurrences: Until Specified Respiratory Care Oxygen Therapy -Nasal Cannula Frequency: Continuous Number of Occurrences: Until Specified IV Insert Peripheral IV Linked Order: And Frequency: Once Number of Occurrences: 1 Occurrences Saline Lock IV Linked Order: And Frequency: Once Number of Occurrences: 1 Occurrences Medications acetaminophen (TYLENOL) tablet 1,000 mg Frequency: Q6H PRN Dose: 1,000 mg Route: oral hydrALAZINE (APRESOLINE) injection 10 mg Frequency: Q6H PRN Dose: 10 mg Route: intravenous HYDROcodone-acetaminophen (NORCO) 5-325 mg per tablet 1 tablet Frequency: Q6H PRN Dose: 1 tablet Route: oral HYDROmorphone (DILAUDID) injection 0.5 mg Frequency: Q4H PRN Dose: 0.5 mg Route: intravenous melatonin tablet 3 mg Frequency: Every Night PRN Dose: 3 mg Route: oral naloxone (NARCAN) injection 0.2 mg Frequency: Q2 Min PRN Dose: 0.2 mg Route: intravenous ondansetron (ZOFRAN) injection 4 mg Linked Order: Or Frequency: Q8H PRN Dose: 4 mg Route: intravenous ondansetron (ZOFRAN-ODT) disintegrating tablet 4 mg Linked Order: Or Frequency: Q8H PRN Dose: 4 mg Route: oral sodium chloride flush 10 mL Linked Order: And Frequency: PRN Dose: 10 mL Route: intravenous Cosigned by Gerard Gil DO at 11/26/2024 11:33 PM EDT Associated attestation - Gerard Gil DO - 11/26/2024 10:33 PM CDT Patient admitted with acute pancreatitis due to biliary obstruction due to suspected choledocholithiasis. Patient being treated empirically with IV Zosyn and IV fluids with MRCP ordered as well as GIConsult. Agree with rest of plan as documented. Gerard Gil D.O. 11/26/2024 23:33 documented in this encounter Consult Notes * Cheryle Ellis RD - 11/29/2024 1:[address] [facility] NUTRITION ASSESSMENT [facility] Nutrition Assessment The patient is a 24 y.o. female with h/o cholelithiasis, admitted with abdominal pain 2/2 gallstonepancreatitis. Pt underwent MRCP without gallstone. Plans for CCY per Surgery. Present on Admission: Acute pancreatitis (Admitting Diagnoses) Nutrition Evaluation Type: Initial Assessment Reason for Evaluation: NPO/CLD X 3 days Subjective Comments: 11/29: Pt NPO, going for CCY this date with Surgery. IVF running. On RA.+BM 11/28. Will follow for diet advancement. Past Medical/Surgical History: No past medical history on file. No past surgical history on file. Vitals and Basic Assessment: Vitals: Vitals: 11/29/24 0935 BP: 125/71 Pulse: 99 Resp: 21 Temp: 97.7 ??F (36.5 ??C) SpO2: 97% Oxygen: RA Олег Scale: Олег Scale Score: 22 Last BM: Last BM Date: 11/28/24 GI Symptoms: WDL Edema: none noted Skin: no breakdown noted Allergies: Allergies Allergen Reactions Zithromax Tri-Nael [Azithromycin] Scheduled Medications: Current Facility-Administered Medications Medication Dose Route Frequency Provider Last Rate Last Admin [Transfer Hold] acetaminophen (TYLENOL) tablet 1,000 mg 1,000 mg oral Q6H PRN Twin Goldstein PA-C [Transfer Hold] hydrALAZINE (APRESOLINE) injection 10 mg 10 mg intravenous Q6H PRN Twin Goldstein PA-C [Transfer Hold] HYDROcodone-acetaminophen (NORCO) 5-325 mg per tablet 1 tablet 1 tablet oral Q6H PRN Twin Goldstein PA-C 1 tablet at 11/28/24 2201 [Transfer Hold] HYDROmorphone (DILAUDID) injection 0.5 mg 0.5 mg intravenous Q4H PRN Twin Goldstein PA-C lactated Ringer's infusion 150 mL/hr intravenous Continuous Twin Goldstein PA-C 150 mL/hr at 11/28/24 2200 150 mL/hr at 11/28/24 2200 lactated Ringer's infusion 100 mL/hr intravenous Continuous Armando Barth MD 100 mL/hr at 11/29/24 0945 100 mL/hr at 11/29/24 0945 [Transfer Hold] melatonin tablet 3 mg 3 mg oral Every Night PRN Twin Goldstein PA-C [Transfer Hold] naloxone (NARCAN) injection 0.2 mg 0.2 mg intravenous Q2 Min PRN Twin Goldstein PA-C [Transfer Hold] ondansetron (ZOFRAN-ODT) disintegrating tablet 4 mg 4 mg oral Q8H PRN Twin Goldstein PA-C Or [Transfer Hold] ondansetron (ZOFRAN) injection 4 mg 4 mg intravenous Q8H PRN Twin Goldstein PA-C [Transfer Hold] pantoprazole (PROTONIX) injection 40 mg 40 mg intravenous Daily Ana Erwin PA-C 40 mg at 11/29/24 0810 [Transfer Hold] piperacillin-tazobactam (ZOSYN) 3.375 g in sodium chloride 0.9 % (NS) MBP 100 mL IVPB 3.375 g intravenous Q6H Twin Goldstein PA-C 33.3 mL/hr at 11/29/24 0810 3.375 g at 11/29/24 0810 [Transfer Hold] sodium chloride flush 10 mL 10 mL intravenous PRN Twin Goldstein PA-C Drips: LR @ 100ml/hr Recent Labs 11/27/24 0625 11/27/24 1138 11/28/24 0959 NA 139 -- 140 K 3.6 -- 3.6 CO2 26 -- 22 BUN 14.8 -- 7.8 CREATININE 0.74 -- 0.65 GLUCOSE 102* 116* 94 CALCIUM 8.4 -- 8.7 PROT 6.4 -- 7.0 ALBUMIN 2.9* -- 3.1* BILITOT 1.0 -- 0.5 ALKPHOS 138 -- 115 AST 68* -- 25 ALT 170* -- 105* HGB 13.7 -- 13.7 HCT 41.3 -- 40.3 No results found for: HGBA1C Anthropometrics: Ht: Height: 160 cm (5' 3 ) Wt: Weight: 87.5 kg (193 lb) Wt hx: Wt Readings from Last 20 Encounters: 11/29/24 87.5 kg (193 lb) BMI: Body mass index is 34.19 kg/m??. Wt Change: unknown UBW: UTO IBW: 115# Percent IBW: 168% Estimated Needs: N/A Current Nutrition Intake: Diet Orders: Diet Order(s): NPO diet Supplements: Intake: NPO Enteral Nutrition? no Diet Experience and Nutrition History: Previous Nutrition Education: Unknown Diet Education Provided: no, will reassess need Nutrition Focused Physical Exam: Date performed: defer Physical signs of fat or muscle wasting with severity: --- Energy intake hx: --- Wt loss: --- Assessment of Malnutrition: Unable to complete malnutrition evaluation at this time. Nutrition Diagnoses: Problem #1: Inadequate Oral Intake Etiology: need for CCY Signs/Symptoms: NPO/CLD x 3 days Status: New Nutrition Interventions and Recommendations: Collaboration with other providers Nutrition Monitoring and Goals: - PO diet per Surgery. Goal: safe PO - If unable to advance diet in 3-4 days, consider TPN for nutrition support. RD available prn for recs upon consult. Goal: nutrition support - Obtain wt 2x weekly Goal: avoid involuntary significant wt change Nutrition Risk Level: High Risk Cheryle Ellis RD * Daryl Priest MD - 11/27/2024 4:37 PM EDT Consults History of Present Illness: Alison Mathew is a 24 y.o. female presenting with recurrent episodes of severe upper abdominal pain. Over the last 4 years she has had 8 episodes of severe pain that can last 1 or 2 days. They involve the upper abdomen. She is afraid of hospitals and is never had them worked up before. 1 week ago she was at [facility] and CT scan showed some abnormality of the gallbladder is consistent with gallstones. I do not have these records. She had another episode yesterday that was so severe that she was lying on the bathroom floor with pain. She went to [facility] where CT scan showed uncomplicated pancreatitis. Lipase was 2200. Total bilirubin was 1.6. AST and ALT were elevated. She was transferred here for evaluation of MRCP possible ERCP. She denies any history of peptic ulcer disease or blood in her stool. . Past Medical History: She has no past medical history on file. Past Surgical History: She has no past surgical history on file. Social History: She has no history on file for tobacco use, alcohol use, and drug use. History of methamphetamine use. Goes to drug court. Denies any alcohol use. Does smoke cigarettes. Family History: Her family history is not on file. Allergies: Patient has no allergy information on record. Medications: No medications prior to admission. Review of Systems Vitals: Blood pressure 131/75, pulse 104, temperature 98 ??F (36.7 ??C), temperature source Oral, resp. rate 16, height 1.6 m (5' 3 ), weight 87.5 kg (193 lb), SpO2 96%. Physical Exam obese Moderate discomfort Normocephalic atraumatic, poor dentition Nonicteric sclera Midline trachea Chest clear to auscultation Heart regular rate and rhythm Abdomen has moderate epigastric and right upper quadrant tenderness. No lower extremity edema Moves all extremities well Skin without rash or jaundice Relevant Results: White count 9. Lipase 856. Normal bilirubin. Assessment & Plan Principal Problem: Acute pancreatitis Cholelithiasis on prior imaging Likely gallstone pancreatitis continue with aggressive fluid hydration until pain improves.. MRCP pending. If has stone in common duct will get MRCP. If no stone in common duct will proceed with laparoscopic cholecystectomy. History of methamphetamine use is in drug court now. Electronically signed by Daryl Priest MD 11/27/2024 at 4:37 PM * Nia Vazquez MD - 11/27/2024 10:24 AM EDTAssociated Order(s): Inpatient consult to Gastroenterology Inpatient consult to Gastroenterology Consult performed by: Nia Vazquez MD Consult ordered by: Twin Goldstein PA-C Reason for consult: Choledocholithiasis, pancreatitis History of Present Illness: 24-year-old female with abdominal pain. Patient has a history of cholelithiasis. Cross-sectional imaging showing uncomplicated pancreatitis. Labs raising concern for obstructive process. Patient transferred for MRCP and possible ERCP. GI consulted for above. She is eating pizza and reports pain. ROS: A complete review of systems was performed and all systems reviewed are negative except as noted inthe HPI Past Medical History She has no past medical history on file. Past Surgical History She has no past surgical history on file. Family History: Her family history is not on file. Social History: Vitals Blood pressure 131/75, pulse 104, temperature 98 ??F (36.7 ??C), temperature source Oral, resp. rate 16, height 1.6 m (5' 3 ), weight 87.5 kg (193 lb), SpO2 96%. Physical Exam Vitals and nursing note reviewed. Constitutional: General: She is not in acute distress. Appearance: Normal appearance. HENT: Head: Normocephalic and atraumatic. Right Ear: External ear normal. Left Ear: External ear normal. Nose: Nose normal. Mouth/Throat: Mouth: Mucous membranes are moist. Pharynx: Oropharynx is clear. No oropharyngeal exudate or posterior oropharyngeal erythema. Eyes: Extraocular Movements: Extraocular movements intact. Conjunctiva/sclera: Conjunctivae normal. Pupils: Pupils are equal, round, and reactive to light. Cardiovascular: Rate and Rhythm: Normal rate. Pulses: Normal pulses. Pulmonary: Effort: Pulmonary effort is normal. Chest: Chest wall: No tenderness. Abdominal: General: Bowel sounds are normal. There is no distension. Tenderness: There is abdominal tenderness. Musculoskeletal: General: No deformity. Normal range of motion. Cervical back: Normal range of motion and neck supple. No rigidity or tenderness. Skin: General: Skin is warm and dry. Neurological: General: No focal deficit present. Mental Status: She is alert and oriented to person, place, and time. Mental status is at baseline. Psychiatric: Mood and Affect: Mood normal. Behavior: Behavior normal. Thought Content: Thought content normal. Judgment: Judgment normal. Assessment and Plan: 24F w/ presumed gallstone pancreatitis. MR pending. Supportive care. Surgical consult if not already done so. # Pancreatitis - IVF. Analgesia per primary. Recommend CLD - F/U MRCP - Surgery consult for CCY Bilal Aslam, MD 11/27/2024 10:24 AM documented in this encounter OR Notes * Op Note - Daryl Priest MD - 11/29/2024 2:58 PM EDT Date: 11/29/2024 Procedures: Procedure(s): Cholecystectomy, tap block laparoscopic Diagnosis: Pre-Op Diagnosis Codes: * Medical history unknown [Z78.9] cholecystitis, gallstone pancreatitis Post-Op Diagnosis Codes: * Medical history unknown [Z78.9] cholecystitis, gallstone pancreatitis Indications: Alison Mathew is an 24 y.o. female with history of multiple episodes of biliary colic over the last 4 years. She presented with severe worst ever epigastric pain nausea and vomiting. CT scan showed gallstones and acute pancreatitis. MRCP showed no common bile duct stones. She had history of methamphetamine use and is followed by drug court. Her pancreatitis symptoms were improving.. The risks, benefits, and alternatives of the above procedure were discussed and the patient has elected to proceed. Surgeons: Surgeons and Role: * Daryl Priest MD - Primary Findings: Gallbladder packed with 2 mm gallstones. Wide cystic duct. Mild inflammation gallbladder. Procedure Details: The patient was seen in the preoperative area. The site of surgery was properly noted/marked if necessary per policy. The patient has been actively warmed in preoperative area. Preoperative antibiotics have been ordered and given within 1 hours of incision. Venous thrombosis prophylaxis have been ordered including bilateral sequential compression devices. Abdomen prepped very sterilely Veress needle placed in left upper quadrant and insufflated. 5 Lilly trocar placed above umbilicus and 2 additional ones placed in right subcostal. 12 mm trocar placed right epigastrium. tap block done. Gallbladder grasped reflected cephalad. Peritoneal adhesions were freed off cystic duct cystic artery neckof the gallbladder. Critical view obtained. Cystic artery controlled with clips and divided with LigaSure device. Cystic duct was carefully dissected out. Was wider than normal. Hem-o-manuelito clip was placed across the proximal cystic duct. A small opening was made and some gallstones were milked from the cystic duct into the field and later retrieved. Now 2 more Hem-o-manuelito clips were placed over the mid cystic duct and it was divided Just grasping the gallbladder caused some biliary spillage and stone spillage this was also lavagedand evacuated the of the case Gallbladder dissected off the gallbladder fossa and removed in abdomen Flexiseq. Right quadrant started back to left was clear. There is no bleeding. The laparoscopic fascial defect closed with 0 Vicryl suture. Wound irrigated. 3 Barcus to close subcutaneous layer. 4-0 Monocryl used to close skin. Dermabond dressing applied. Anesthesia: General Estimated Blood Loss: 5 mL Drains: * No LDAs found * Specimens: Specimens (From admission, onward) Start Ordered 11/29/24 1404 Tissue Exam RELEASE UPON ORDERING 11/29/24 1404 Complications: None * No complications entered in OR log * Disposition: PACU - hemodynamically stable. Condition: stable Attending Attestation: I was present and scrubbed for the entire procedure except the skin closure. documented in this encounter Miscellaneous Notes * Plan of Care - Silverio Morales RN - 11/30/2024 8:13 AM EDT Problem: Pain Goal: Patient's pain/discomfort is manageable Description: Assess and monitor patient's pain using appropriate pain scale. Collaborate with interdisciplinary team and initiate plan and interventions as ordered. Re-assess patient's pain level after pain management intervention. Outcome: Progressing Intervention: Asssess pain level utilizing 0-10 scale Recent Flowsheet Documentation Taken 11/30/2024 0813 by Silverio Morales RN Pain Score: Seven Problem: Safety Goal: Patient will be injury free during hospitalization Description: Assess and monitor vitals signs, neurological status including level of consciousness and orientation. Assess patient's risk for falls and implement fall prevention plan of care and interventions per hospital policy. Ensure arm band on, uncluttered walking paths in room, adequate room lighting, call light and overbed table within reach, bed in low position, wheels locked, side rails up per policy, and non-skid footwear provided. Outcome: Progressing Problem: Potential for Developing a Blood Clot Goal: Tissue perfusion is adequate - venous Description: Assess and monitor skin color and temperature, skin integrity, pulses, capillary refill, edema, pain in extremities, Homans' sign, labs (D- dimer), and diagnostic tests (ultrasound, CT scan, VQ scan). Monitor for signs and symptoms of deep vein thrombosis (swelling of calf/thigh, redness, pain, tenderness). Monitor for signs and symptoms of pulmonary embolism (dyspnea, tachypnea, tachycardia). Collaborate with interdisciplinary team and initiate plans and interventions as needed Outcome: Progressing Problem: Daily Care Goal: Daily care needs are met Description: Assess and monitor ability to perform self care and identify potential discharge needs. Outcome: Progressing Intervention: Assess skin integrity/risk for skin breakdown and implement skin integrity plan of care and interventions per policy Recent Flowsheet Documentation Taken 11/30/2024812 by Silverio Morales RN Sensory Perceptions: 4 Moisture: 4 Activity: 4 Mobility: 4 Nutrition: 3 Friction and Shear: 3 Олег Scale Score: 22 Problem: Potential for Infection Goal: Remains infection free Description: Assess and monitor vital signs, skin (color, moisture, integrity, turgor), respiratorystatus, urinary and gastrointestinal status, and labs (WBC, cultures). Administer antibiotics and antipyretics as ordered. Ensure aseptic care of all intravenous lines, invasive tubes/drains and wounds. Monitor for signs and symptoms of infection (redness, warmth, discharge, increased body temperature). Wash hands properly before and after each patient care activity. Follow isolation guidelines per hospital protocol/policy. Collaborate with interdisciplinary team and initiate plan and interventions as ordered. Outcome: Progressing Problem: Psychosocial Needs Goal: Demonstrates ability to cope with hospitalization/illness Description: Assess and monitor patients ability to cope with his/her illness. Outcome: Progressing Goal: Collaborate with patient/family/caregiver to identify patient specific goals for this hospitalization Outcome: Progressing Problem: Anxiety Goal: Anxiety is at manageable level Description: Assess and monitor patient's anxiety level. Monitor for signs and symptoms of anxiety both physical and emotional (heart palpitations, chest pain, shortness of breath, headaches, nausea,feeling jumpy, restlessness, irritable, apprehensive). Collaborate with interdisciplinary team and initiate plan and interventions as ordered. Outcome: Progressing Problem: Inadequate Coping Goal: Demonstrates ability to cope effectively Description: Patient is able to verbalize feelings related to emotional state. Outcome: Progressing Goal: Verbalizes adaptive coping mechanisms Description: Able to verbalize adaptive coping mechanisms such as physical activity, distraction, and deep breathing exercises. Outcome: Progressing Goal: Verbalizes personal strengths Description: Spend time with the patient using empathy and active listening skills. Outcome: Progressing Problem: Progressive Mobility Goal: BMAT Level 1 - With full mechanical lifting assistance: Outcome: Progressing Goal: BMAT Level 2 - With 2-person and/or mechanical lifting assistance: Outcome: Progressing Goal: BMAT Level 3 - With 1 to 2-person and/or mechanical lifting assistance: Outcome: Progressing Goal: BMAT Level 4 - With 1-person assistance or mobility aid as needed (walker, cane, crutches): Outcome: Progressing Problem: Discharge Barriers Goal: Patient's discharge needs are met Description: Collaborate with interdisciplinary team and initiate plans and interventions as needed. Outcome: Progressing Problem: Risk for Falls Goal: No falls during hospitalization Description: Patient will not fall during hospitalization. Outcome: Progressing Problem: Knowledge Deficit Goal: Knowledge - personal safety Description: Patient will verbalize understanding of fall prevention. Outcome: Progressing Problem: Pain Goal: Patient's pain/discomfort is manageable Description: Assess and monitor patient's pain using appropriate pain scale. Collaborate with interdisciplinary team and initiate plan and interventions as ordered. Re-assess patient's pain level after pain management intervention. Outcome: Progressing Problem: Safety Goal: Patient will be injury free during hospitalization Description: Assess and monitor vitals signs, neurological status including level of consciousness and orientation. Assess patient's risk for falls and implement fall prevention plan of care and interventions per hospital policy. Ensure arm band on, uncluttered walking paths in room, adequate room lighting, call light and overbed table within reach, bed in low position, wheels locked, side rails up per policy, and non-skid footwear provided. Outcome: Progressing Problem: Potential for Developing a Blood Clot Goal: Tissue perfusion is adequate - venous Description: Assess and monitor skin color and temperature, skin integrity, pulses, capillary refill, edema, pain in extremities, Homans' sign, labs (D- dimer), and diagnostic tests (ultrasound, CT scan, VQ scan). Monitor for signs and symptoms of deep vein thrombosis (swelling of calf/thigh, redness, pain, tenderness). Monitor for signs and symptoms of pulmonary embolism (dyspnea, tachypnea, tachycardia). Collaborate with interdisciplinary team and initiate plans and interventions as needed Outcome: Progressing Problem: Daily Care Goal: Daily care needs are met Description: Assess and monitor ability to perform self care and identify potential discharge needs. Outcome: Progressing Problem: Potential for Infection Goal: Remains infection free Description: Assess and monitor vital signs, skin (color, moisture, integrity, turgor), respiratorystatus, urinary and gastrointestinal status, and labs (WBC, cultures). Administer antibiotics and antipyretics as ordered. Ensure aseptic care of all intravenous lines, invasive tubes/drains and wounds. Monitor for signs and symptoms of infection (redness, warmth, discharge, increased body temperature). Wash hands properly before and after each patient care activity. Follow isolation guidelines per hospital protocol/policy. Collaborate with interdisciplinary team and initiate plan and interventions as ordered. Outcome: Progressing Problem: Psychosocial Needs Goal: Demonstrates ability to cope with hospitalization/illness Description: Assess and monitor patients ability to cope with his/her illness. Outcome: Progressing Goal: Collaborate with patient/family/caregiver to identify patient specific goals for this hospitalization Outcome: Progressing Problem: Anxiety Goal: Anxiety is at manageable level Description: Assess and monitor patient's anxiety level. Monitor for signs and symptoms of anxiety both physical and emotional (heart palpitations, chest pain, shortness of breath, headaches, nausea,feeling jumpy, restlessness, irritable, apprehensive). Collaborate with interdisciplinary team and initiate plan and interventions as ordered. Outcome: Progressing Problem: Inadequate Coping Goal: Demonstrates ability to cope effectively Description: Patient is able to verbalize feelings related to emotional state. Outcome: Progressing Goal: Verbalizes adaptive coping mechanisms Description: Able to verbalize adaptive coping mechanisms such as physical activity, distraction, and deep breathing exercises. Outcome: Progressing Goal: Verbalizes personal strengths Description: Spend time with the patient using empathy and active listening skills. Outcome: Progressing Problem: Progressive Mobility Goal: BMAT Level 1 - With full mechanical lifting assistance: Outcome: Progressing Goal: BMAT Level 2 - With 2-person and/or mechanical lifting assistance: Outcome: Progressing Goal: BMAT Level 3 - With 1 to 2-person and/or mechanical lifting assistance: Outcome: Progressing Goal: BMAT Level 4 - With 1-person assistance or mobility aid as needed (walker, cane, crutches): Outcome: Progressing Problem: Discharge Barriers Goal: Patient's discharge needs are met Description: Collaborate with interdisciplinary team and initiate plans and interventions as needed. Outcome: Progressing Problem: Risk for Falls Goal: No falls during hospitalization Description: Patient will not fall during hospitalization. Outcome: Progressing Problem: Knowledge Deficit Goal: Knowledge - personal safety Description: Patient will verbalize understanding of fall prevention. Outcome: Progressing * Plan of Care - Leroy Hampton RN - 11/29/2024 11:06 PM EDT Problem: Pain Goal: Patient's pain/discomfort is manageable Description: Assess and monitor patient's pain using appropriate pain scale. Collaborate with interdisciplinary team and initiate plan and interventions as ordered. Re-assess patient's pain level after pain management intervention. Outcome: Progressing Problem: Safety Goal: Patient will be injury free during hospitalization Description: Assess and monitor vitals signs, neurological status including level of consciousness and orientation. Assess patient's risk for falls and implement fall prevention plan of care and interventions per hospital policy. Ensure arm band on, uncluttered walking paths in room, adequate room lighting, call light and overbed table within reach, bed in low position, wheels locked, side rails up per policy, and non-skid footwear provided. Outcome: Progressing Problem: Potential for Developing a Blood Clot Goal: Tissue perfusion is adequate - venous Description: Assess and monitor skin color and temperature, skin integrity, pulses, capillary refill, edema, pain in extremities, Homans' sign, labs (D- dimer), and diagnostic tests (ultrasound, CT scan, VQ scan). Monitor for signs and symptoms of deep vein thrombosis (swelling of calf/thigh, redness, pain, tenderness). Monitor for signs and symptoms of pulmonary embolism (dyspnea, tachypnea, tachycardia). Collaborate with interdisciplinary team and initiate plans and interventions as needed Outcome: Progressing Problem: Daily Care Goal: Daily care needs are met Description: Assess and monitor ability to perform self care and identify potential discharge needs. Outcome: Progressing Problem: Potential for Infection Goal: Remains infection free Description: Assess and monitor vital signs, skin (color, moisture, integrity, turgor), respiratorystatus, urinary and gastrointestinal status, and labs (WBC, cultures). Administer antibiotics and antipyretics as ordered. Ensure aseptic care of all intravenous lines, invasive tubes/drains and wounds. Monitor for signs and symptoms of infection (redness, warmth, discharge, increased body temperature). Wash hands properly before and after each patient care activity. Follow isolation guidelines per hospital protocol/policy. Collaborate with interdisciplinary team and initiate plan and interventions as ordered. Outcome: Progressing Problem: Psychosocial Needs Goal: Demonstrates ability to cope with hospitalization/illness Description: Assess and monitor patients ability to cope with his/her illness. Outcome: Progressing Goal: Collaborate with patient/family/caregiver to identify patient specific goals for this hospitalization Outcome: Progressing Problem: Anxiety Goal: Anxiety is at manageable level Description: Assess and monitor patient's anxiety level. Monitor for signs and symptoms of anxiety both physical and emotional (heart palpitations, chest pain, shortness of breath, headaches, nausea,feeling jumpy, restlessness, irritable, apprehensive). Collaborate with interdisciplinary team and initiate plan and interventions as ordered. Outcome: Progressing Problem: Inadequate Coping Goal: Demonstrates ability to cope effectively Description: Patient is able to verbalize feelings related to emotional state. Outcome: Progressing Goal: Verbalizes adaptive coping mechanisms Description: Able to verbalize adaptive coping mechanisms such as physical activity, distraction, and deep breathing exercises. Outcome: Progressing Goal: Verbalizes personal strengths Description: Spend time with the patient using empathy and active listening skills. Outcome: Progressing Problem: Discharge Barriers Goal: Patient's discharge needs are met Description: Collaborate with interdisciplinary team and initiate plans and interventions as needed. Outcome: Progressing Problem: Risk for Falls Goal: No falls during hospitalization Description: Patient will not fall during hospitalization. Outcome: Progressing Problem: Knowledge Deficit Goal: Knowledge - personal safety Description: Patient will verbalize understanding of fall prevention. Outcome: Progressing * Hospital Course - Rigoberto Medina NP - 11/29/2024 3:46 PM EDT Patient admitted under hospital medicine services. GI and general surgery consulted. She underwent MRCP which identified acute mild interstitial pancreatitis, mild gallbladder wall thickening and numerous gallstones seen. Minimal biliary ductal dilation. Findings equivocal for acute cholecystitis. No evidence of choledocholithiasis. She was treated with IV Zosyn and fluids. LFTs and lipase improved since admission. She did have a mildly elevated WBC to 11.6. Unfortunately, then refused any additional laboratory studies due to pain from phlebotomy. She underwent laparoscopic cholecystectomy with Dr. Priest 11/19/2024. Findings of gallbladder packed with 2 mm stones, wide cystic duct, and mildly inflamed gallbladder. Surgeon recommended continued monitoring overnight for diet advancement the following morning. Patient tolerated the diet. Per general surgery weight restriction of 15 pounds for 3 weeks, okay to shower in 2 days. Patient will need to follow-up with Dr. Priest in 3 weeks following discharge. Strongly encouraged tobacco cessation and diet/lifestyle changes at discharge. Patient continued to leave unit frequently to smoke. Understands this is a direct correlation with future acute pancreatitis episodes. Recommended the patient establish with PCP at discharge. Patient remained hemodynamically stable on day of discharge. As needed pain regimen provided at the time of discharge per surgery recommendations. * Plan of Care - Silverio Morales RN - 11/29/2024 2:52 PM EDT Problem: Pain Goal: Patient's pain/discomfort is manageable Description: Assess and monitor patient's pain using appropriate pain scale. Collaborate with interdisciplinary team and initiate plan and interventions as ordered. Re-assess patient's pain level after pain management intervention. Outcome: Progressing Intervention: Asssess pain level utilizing 0-10 scale Recent Flowsheet Documentation Taken 11/29/2024 0802 by Silverio Morales RN Pain Score: Zero Problem: Safety Goal: Patient will be injury free during hospitalization Description: Assess and monitor vitals signs, neurological status including level of consciousness and orientation. Assess patient's risk for falls and implement fall prevention plan of care and interventions per hospital policy. Ensure arm band on, uncluttered walking paths in room, adequate room lighting, call light and overbed table within reach, bed in low position, wheels locked, side rails up per policy, and non-skid footwear provided. Outcome: Progressing Problem: Potential for Developing a Blood Clot Goal: Tissue perfusion is adequate - venous Description: Assess and monitor skin color and temperature, skin integrity, pulses, capillary refill, edema, pain in extremities, Homans' sign, labs (D- dimer), and diagnostic tests (ultrasound, CT scan, VQ scan). Monitor for signs and symptoms of deep vein thrombosis (swelling of calf/thigh, redness, pain, tenderness). Monitor for signs and symptoms of pulmonary embolism (dyspnea, tachypnea, tachycardia). Collaborate with interdisciplinary team and initiate plans and interventions as needed Outcome: Progressing Problem: Daily Care Goal: Daily care needs are met Description: Assess and monitor ability to perform self care and identify potential discharge needs. Outcome: Progressing Intervention: Assess skin integrity/risk for skin breakdown and implement skin integrity plan of care and interventions per policy Recent Flowsheet Documentation Taken 11/29/2024801 by Silverio Morales RN Sensory Perceptions: 4 Moisture: 4 Activity: 4 Mobility: 4 Nutrition: 3 Friction and Shear: 3 Олег Scale Score: 22 Problem: Potential for Infection Goal: Remains infection free Description: Assess and monitor vital signs, skin (color, moisture, integrity, turgor), respiratorystatus, urinary and gastrointestinal status, and labs (WBC, cultures). Administer antibiotics and antipyretics as ordered. Ensure aseptic care of all intravenous lines, invasive tubes/drains and wounds. Monitor for signs and symptoms of infection (redness, warmth, discharge, increased body temperature). Wash hands properly before and after each patient care activity. Follow isolation guidelines per hospital protocol/policy. Collaborate with interdisciplinary team and initiate plan and interventions as ordered. Outcome: Progressing Problem: Psychosocial Needs Goal: Demonstrates ability to cope with hospitalization/illness Description: Assess and monitor patients ability to cope with his/her illness. Outcome: Progressing Goal: Collaborate with patient/family/caregiver to identify patient specific goals for this hospitalization Outcome: Progressing Problem: Anxiety Goal: Anxiety is at manageable level Description: Assess and monitor patient's anxiety level. Monitor for signs and symptoms of anxiety both physical and emotional (heart palpitations, chest pain, shortness of breath, headaches, nausea,feeling jumpy, restlessness, irritable, apprehensive). Collaborate with interdisciplinary team and initiate plan and interventions as ordered. Outcome: Progressing Problem: Inadequate Coping Goal: Demonstrates ability to cope effectively Description: Patient is able to verbalize feelings related to emotional state. Outcome: Progressing Goal: Verbalizes adaptive coping mechanisms Description: Able to verbalize adaptive coping mechanisms such as physical activity, distraction, and deep breathing exercises. Outcome: Progressing Goal: Verbalizes personal strengths Description: Spend time with the patient using empathy and active listening skills. Outcome: Progressing Problem: Progressive Mobility Goal: BMAT Level 1 - With full mechanical lifting assistance: Outcome: Progressing Goal: BMAT Level 2 - With 2-person and/or mechanical lifting assistance: Outcome: Progressing Goal: BMAT Level 3 - With 1 to 2-person and/or mechanical lifting assistance: Outcome: Progressing Goal: BMAT Level 4 - With 1-person assistance or mobility aid as needed (walker, cane, crutches): Outcome: Progressing Problem: Discharge Barriers Goal: Patient's discharge needs are met Description: Collaborate with interdisciplinary team and initiate plans and interventions as needed. Outcome: Progressing Problem: Risk for Falls Goal: No falls during hospitalization Description: Patient will not fall during hospitalization. Outcome: Progressing Problem: Knowledge Deficit Goal: Knowledge - personal safety Description: Patient will verbalize understanding of fall prevention. Outcome: Progressing Problem: Pain Goal: Patient's pain/discomfort is manageable Description: Assess and monitor patient's pain using appropriate pain scale. Collaborate with interdisciplinary team and initiate plan and interventions as ordered. Re-assess patient's pain level after pain management intervention. Outcome: Progressing Problem: Safety Goal: Patient will be injury free during hospitalization Description: Assess and monitor vitals signs, neurological status including level of consciousness and orientation. Assess patient's risk for falls and implement fall prevention plan of care and interventions per hospital policy. Ensure arm band on, uncluttered walking paths in room, adequate room lighting, call light and overbed table within reach, bed in low position, wheels locked, side rails up per policy, and non-skid footwear provided. Outcome: Progressing Problem: Potential for Developing a Blood Clot Goal: Tissue perfusion is adequate - venous Description: Assess and monitor skin color and temperature, skin integrity, pulses, capillary refill, edema, pain in extremities, Homans' sign, labs (D- dimer), and diagnostic tests (ultrasound, CT scan, VQ scan). Monitor for signs and symptoms of deep vein thrombosis (swelling of calf/thigh, redness, pain, tenderness). Monitor for signs and symptoms of pulmonary embolism (dyspnea, tachypnea, tachycardia). Collaborate with interdisciplinary team and initiate plans and interventions as needed Outcome: Progressing Problem: Daily Care Goal: Daily care needs are met Description: Assess and monitor ability to perform self care and identify potential discharge needs. Outcome: Progressing Problem: Potential for Infection Goal: Remains infection free Description: Assess and monitor vital signs, skin (color, moisture, integrity, turgor), respiratorystatus, urinary and gastrointestinal status, and labs (WBC, cultures). Administer antibiotics and antipyretics as ordered. Ensure aseptic care of all intravenous lines, invasive tubes/drains and wounds. Monitor for signs and symptoms of infection (redness, warmth, discharge, increased body temperature). Wash hands properly before and after each patient care activity. Follow isolation guidelines per hospital protocol/policy. Collaborate with interdisciplinary team and initiate plan and interventions as ordered. Outcome: Progressing Problem: Psychosocial Needs Goal: Demonstrates ability to cope with hospitalization/illness Description: Assess and monitor patients ability to cope with his/her illness. Outcome: Progressing Goal: Collaborate with patient/family/caregiver to identify patient specific goals for this hospitalization Outcome: Progressing Problem: Anxiety Goal: Anxiety is at manageable level Description: Assess and monitor patient's anxiety level. Monitor for signs and symptoms of anxiety both physical and emotional (heart palpitations, chest pain, shortness of breath, headaches, nausea,feeling jumpy, restlessness, irritable, apprehensive). Collaborate with interdisciplinary team and initiate plan and interventions as ordered. Outcome: Progressing Problem: Inadequate Coping Goal: Demonstrates ability to cope effectively Description: Patient is able to verbalize feelings related to emotional state. Outcome: Progressing Goal: Verbalizes adaptive coping mechanisms Description: Able to verbalize adaptive coping mechanisms such as physical activity, distraction, and deep breathing exercises. Outcome: Progressing Goal: Verbalizes personal strengths Description: Spend time with the patient using empathy and active listening skills. Outcome: Progressing Problem: Progressive Mobility Goal: BMAT Level 1 - With full mechanical lifting assistance: Outcome: Progressing Goal: BMAT Level 2 - With 2-person and/or mechanical lifting assistance: Outcome: Progressing Goal: BMAT Level 3 - With 1 to 2-person and/or mechanical lifting assistance: Outcome: Progressing Goal: BMAT Level 4 - With 1-person assistance or mobility aid as needed (walker, cane, crutches): Outcome: Progressing Problem: Discharge Barriers Goal: Patient's discharge needs are met Description: Collaborate with interdisciplinary team and initiate plans and interventions as needed. Outcome: Progressing Problem: Risk for Falls Goal: No falls during hospitalization Description: Patient will not fall during hospitalization. Outcome: Progressing Problem: Knowledge Deficit Goal: Knowledge - personal safety Description: Patient will verbalize understanding of fall prevention. Outcome: Progressing * Plan of Care - Leroy Hampton RN - 11/28/2024 11:41 PM EDT Problem: Pain Goal: Patient's pain/discomfort is manageable Description: Assess and monitor patient's pain using appropriate pain scale. Collaborate with interdisciplinary team and initiate plan and interventions as ordered. Re-assess patient's pain level after pain management intervention. Outcome: Progressing Problem: Safety Goal: Patient will be injury free during hospitalization Description: Assess and monitor vitals signs, neurological status including level of consciousness and orientation. Assess patient's risk for falls and implement fall prevention plan of care and interventions per hospital policy. Ensure arm band on, uncluttered walking paths in room, adequate room lighting, call light and overbed table within reach, bed in low position, wheels locked, side rails up per policy, and non-skid footwear provided. Outcome: Progressing Problem: Potential for Developing a Blood Clot Goal: Tissue perfusion is adequate - venous Description: Assess and monitor skin color and temperature, skin integrity, pulses, capillary refill, edema, pain in extremities, Homans' sign, labs (D- dimer), and diagnostic tests (ultrasound, CT scan, VQ scan). Monitor for signs and symptoms of deep vein thrombosis (swelling of calf/thigh, redness, pain, tenderness). Monitor for signs and symptoms of pulmonary embolism (dyspnea, tachypnea, tachycardia). Collaborate with interdisciplinary team and initiate plans and interventions as needed Outcome: Progressing Problem: Daily Care Goal: Daily care needs are met Description: Assess and monitor ability to perform self care and identify potential discharge needs. Outcome: Progressing Problem: Potential for Infection Goal: Remains infection free Description: Assess and monitor vital signs, skin (color, moisture, integrity, turgor), respiratorystatus, urinary and gastrointestinal status, and labs (WBC, cultures). Administer antibiotics and antipyretics as ordered. Ensure aseptic care of all intravenous lines, invasive tubes/drains and wounds. Monitor for signs and symptoms of infection (redness, warmth, discharge, increased body temperature). Wash hands properly before and after each patient care activity. Follow isolation guidelines per hospital protocol/policy. Collaborate with interdisciplinary team and initiate plan and interventions as ordered. Outcome: Progressing Problem: Psychosocial Needs Goal: Demonstrates ability to cope with hospitalization/illness Description: Assess and monitor patients ability to cope with his/her illness. Outcome: Progressing Goal: Collaborate with patient/family/caregiver to identify patient specific goals for this hospitalization Outcome: Progressing Problem: Anxiety Goal: Anxiety is at manageable level Description: Assess and monitor patient's anxiety level. Monitor for signs and symptoms of anxiety both physical and emotional (heart palpitations, chest pain, shortness of breath, headaches, nausea,feeling jumpy, restlessness, irritable, apprehensive). Collaborate with interdisciplinary team and initiate plan and interventions as ordered. Outcome: Progressing Problem: Inadequate Coping Goal: Demonstrates ability to cope effectively Description: Patient is able to verbalize feelings related to emotional state. Outcome: Progressing Goal: Verbalizes adaptive coping mechanisms Description: Able to verbalize adaptive coping mechanisms such as physical activity, distraction, and deep breathing exercises. Outcome: Progressing Goal: Verbalizes personal strengths Description: Spend time with the patient using empathy and active listening skills. Outcome: Progressing Problem: Progressive Mobility Goal: BMAT Level 4 - With 1-person assistance or mobility aid as needed (walker, cane, crutches): Outcome: Progressing Problem: Risk for Falls Goal: No falls during hospitalization Description: Patient will not fall during hospitalization. Outcome: Progressing Problem: Knowledge Deficit Goal: Knowledge - personal safety Description: Patient will verbalize understanding of fall prevention. Outcome: Progressing * Significant Event - Jaya Posada PA-C - 11/26/2024 7:39 PM EDT Alison Mathew is a 24 y.o. female with past medical history including cholelithiasis who presents [facility] facility for upper abdominal pain. Case discussed with Dr. Burnham. Patient presented to [facility] complaining of upper abdominal pain which has been ongoing for several days. She hasknown history of gallstones but reportedly has not had a cholecystectomy. Laboratory workup showed leukocytosis with left shift, lipase 2200, alkaline phosphatase 200, AST/ALT 190/330, and total bili1.6. CT imaging demonstrated uncomplicated acute pancreatitis. Patient did receive Zosyn antibiotics for broad-spectrum coverage due to leukocytosis. Due to patient having biliary dysfunction demonstr ated on labs, transfer for MRCP and possible ERCP was requested by preceding provider. In this context, I determined level care to be medical/surgical at this time. Disclosure statement: I am accepting this patient from an OSH on behalf of another provider/facility. Level of care is determined by discussion with provider requesting transfer and information that is acquired at that time. Please note that level of care may change pending additional findings and/or results on arrival. I will defer to admitting provider at receiving facility if level of care needs to be escalated on arrival. documented in this encounter Plan of Treatment Not on file documented as of this encounter Procedures Procedure Name Priority Date/Time Associated Diagnosis Comments TISSUE EXAM ([place] AR) AP Routine 11/29/2024 2 :04 PM EDT Medical history unknown [place] LAPAROSCOPY SURG CHOLECYSTECTOMY 11/29/2024 1:35 PM EDT Medical history unknown Case Notes 1.5HR (A) HCG, QUANTITATIVE, Add-On 11/29/2024 9:26 AM EDT CBC HEMOGRAM (SJ-BKR) Routine 11/28/2024 9:59 AM EDT LIPASE Routine 11/28/2024 9:59 AM EDT COMPREHENSIVE METABOLIC PANEL Routine 11/28/2024 9:59 AM EDT NOVA GLUCOSE POC Routine 11/27/2024 11:3 8 AM EDT MR ABDOMEN WITHOUT IV CONTRAST MRCP Routine 11/27/2024 10:20 AM EDT CBC W/ AUTO DIFF Routine 11/27/2024 6:25 AM EDT LIPASE Routine 11/27/2024 6:25 AM EDT COMPREHENSIVE METABOLIC PANEL Routine 11/27/2024 6:25 AM EDT documented in this encounter Results * Tissue Exam (11/29/2024 2:04 PM EDT) AP RESULT See Note: [facility] Comment: PATHOLOGY REPORT DIAGNOSIS: A. GALLBLADDER, CHOLECYSTECTOMY: Chronic cholecystitis with cholelithiasis No evidence of dysplasia or malignancy Final Reviewed, Diagnosed and Electronically Signed By: MELISSA VILLAREAL MD CLINICAL HISTORY: Acute pancreatitis, Choledocholithiasis MICROSCOPIC DESCRIPTION: Tissue blocks are prepared and slides examined microscopically on all specimens. See diagnosis for details. GROSS DESCRIPTION: A. Received in formalin labeled gallbladder is a 7.7 x 2.5 x 2.4 cm intact, unopened gallbladder with clamped cystic duct an blue-mejia, smooth glistening serosa. The lumen contains green viscous bile and innumerable yellow multifaceted stones ranging from 0.3 to 0.8 cm. The mucosa is green and velvety and the gallbladder wall thickness averages 0.2 cm. No masses or mucosal lesions are identified. Inbound Sales Consultant sections to include the en face cystic duct margin, neck, body and fundus are submitted in A1. HDM Tissue GALLBLADDER STRUCTURE / Unknown 11/29/2024 2:04 PM EDT us Daryl Priest MD PATHOLOGY/CYTOLOGY ORDERABLES Fi nal Result [facility] [address] [place] [address], [facility] * hCG, quantitative, (11/29/2024 9:26 AM EDT) HCG Serum Quant <3 0 - 5 mIU/mL 11/29/2024 10:24 AM EDT [facility] Comment: Because hCG is normally synthesized and secreted by cells of the placenta or its precursor, levels of the hormone in normal, non- individuals are low to undetectable. Concentrations of -hCG measured in the sera of non- individuals, as reported in the literature, are < 5 mIU/mL. The concentration of -hCG in maternal serum rises rapidly during early . -hCG levels between 5 mIU/mL and 25 mIU/mL may be indicative of early . Values for -hCG generally peak during the first trimester and decline slowly throughout the remainder of the . Pre-menopausal < 2.42 Lesly-menopausal < 2.42 - 4.87 Post-menopausal* < 2.42 - 7.60 * Post-menopausal is defined as female subjects who had not had a menstrual period for 12 months or more. Blood Venipuncture / Unknown 11/29/2024 9:26 AM EDT 11/29/2024 9:26 AM EDT us Armando Barth MD LAB BLOOD ORDERABLES Final Result [facility] [address] [phone] * (ABNORMAL) Lipase (11/28/2024 9:59 AM EDT) [facility] Lipase 201(H) <=60 U/L 11/28/2024 10:34 AM EDT [facility] Blood Venipuncture / Unknown 11/28/2024 9:59 AM EDT 11/28/2024 10:12 AM EDT us Ana Erwin PA-C LAB BLOOD ORDERABLES Final Res ult [facility] [address] [phone] * (ABNORMAL) CBC - Hemogram (SJ-BKR) (11/28/2024 9:59 AM EDT) WBC 11.6(H) 4.0 - 10.0 K/ L 11/28/2024 10:14 AM EDT [facility] RBC 4.50 3.93 - 5.22 M/ L 11/28/2024 10:14 AM EDT [facility] Hemoglobin 13.7 11.2 - 15.7 GM/DL 11/28/2024 10:14 AM EDT [facility] Hematocrit 40.3 34.1 - 44.9 % 11/28/2024 10:14 AM EDT [facility] MCV 90 79 - 95 fL 11/28/2024 10:14 AM EDT [facility] MCH 30.4 25.6 - 32.2 pg 11/28/2024 10:14 AM EDT [facility] MCHC 34.0 32.2 - 35.5 GM/DL 11/28/2024 10:14 AM EDT [facility] RDW 13.7 11.7 - 14.4 % 11/28/2024 10:14 AM EDT [facility] Platelets 252 140 - 375 K/CU MM 11/28/2024 10:14 AM EDT [facility] MPV 10.0 9.4 - 12.3 fL 11/28/2024 10:14 AM EDT [facility] Blood Venipuncture / Unknown 11/28/2024 9:59 AM EDT 11/28/2024 10:12 AM EDT us Ana Erwin PA-C LAB BLOOD ORDERABLES Final Res ult [facility] [address] [phone] * (ABNORMAL) Comprehensive metabolic panel (11/28/2024 9:59 AM EDT) Sodium 140 136 - 145 meq/L 11/28/2024 10:42 AM EDT [facility] Potassium 3.6 3.4 - 5.1 meq/L 11/28/2024 10:42 AM EDT [facility] Chloride 110 98 - 112 meq/L 11/28/2024 10:42 AM [facility] CO2 22 22 - 29 meq/L 11/28/2024 10:42 AM [facility] Calcium 8.7 8.4 - 10.2 mg/dL 11/28/2024 10:42 AM [facility] Glucose 94 74 - 100 mg/dL 11/28/2024 10:42 AM [facility] BUN 7.8 7.0 - 18.7 mg/dL 11/28/2024 10:42 AM [facility] Creatinine 0.65 0.57 - 1.11 mg/dL 11/28/2024 10:42 AM [facility] BUN/Creatinine 12 8 - 20 11/28/2024 10:42 AM [facility] eGFR (mL/min/1.73m2) 126 >=60 mL/min/1. 73m2 11/28/2024 10:42 AM [facility] Albumin 3.1(L) 3.5 - 5.0 g/dL 11/28/2024 10:42 AM [facility] Alkaline Phosphatase 115 40 - 150 U/L 11/28/2024 10:42 AM [facility] ALT 105(H) <=34 U/L 11/28/2024 10:42 AM [facility] Comment: ALT2 reagent used for testing does not contain P5P supplementation and therefore may miss ALT elevations in patients with B6 deficiency. This population may be as high as 10% in the [place], with risk factors including malabsorption, drug interactions, and alcoholic hepatitis. AST 25 11 - 34 U/L 11/28/2024 10:42 AM [facility] Comment: AST2 reagent used for testing does not contain P5P supplementation and therefore may miss AST elevations in patients with B6 deficiency. This population may be as high as 10% in the [place], with risk factors including malabsorption, drug interactions, and alcoholic hepatitis. Total Bilirubin 0.5 0.2 - 1.2 mg/dL 11/28/2024 10:42 AM [facility] Protein, Total 7.0 6.4 - 8.3 g/dL 11/28/2024 10:42 AM EDT [facility] Globulin 3.9 2.5 - 4.1 g/dL 11/28/2024 10:42 AM EDT [facility] Anion Gap 12 4 - 12 11/28/2024 10:42 AM EDT [facility] A/G Ratio 0.8 0.7 - 1.9 11/28/2024 10:42 AM EDT [facility] Osmolality Calc 277.4 mOsm/kg 10:42 AM EDT [facility] Blood Venipuncture / Unknown 11/28/2024 9:59 AM EDT 11/28/2024 10:12 AM EDT Ana Erwin PA-C LAB BLOOD ORDERABLES Final Res ult Performing Organization Address [facility] Co de Phone Number [facility] [address] [phone] * (ABNORMAL) Glucose, Nova Meter (11/27/2024 11:38 AM EDT) POC-GLUCOSE 116(H) 70 - 110 mg/dL 11/27/2024 11:39 AM EDT [facility] Comment: In the event of poor peripheral blood flow, venous or arterial blood should be used due to the potential of erroneous results. Notified Nurse RBV Body Painter [id number] 11/27/2024 11:39 AM EDT [facility] Blood WHOLE BLOOD / Unknown 11/27/2024 11:38 AM EDT 11/27/2024 11:39 AM EDT Narrative [facility] - 11/27/2024 11:39 AM EDT Body Painter ID is - [id number] us Ana Erwin PA-C POINT OF CARE TEST ORDERABLES Final Result Performing Organization Address [facility] Co de Phone Number [facility] [address] [phone] * MR abdomen without IV contrast MRCP (11/27/2024 10:20 AM EDT) Anatomical Region Laterality Modality Abdomen Magnetic Resonan ce (MRI) 11/27/2024 9:07 PM EDT Impressions 11/27/2024 9:17 PM EDT Acute mild interstitial pancreatitis. Mild gallbladder wall thickening and numerous gallstones seen in the gallbladder which is not distended. Minimal biliary ductal dilatation. Findings are equivocal for acute cholecystitis. Please correlate. No evidence of choledocholithiasis. Images reviewed, interpreted, and dictated by Salvador Pedersen M.D. Narrative 11/27/2024 9:17 PM EDT MRCP HISTORY: Concern for pancreatitis and choledocholithiasis. PROCEDURE: MRI images of the abdomen were performed. An MRCP was also performed. 3 D Reconstruction images were also performed. FINDINGS: Axial localization images are limited by artifact. The gallbladder is filled with numerous small stones. No evidence of acute cholecystitis. The biliary tree is minimally dilated to 4-5 mm. No definite filling defects are identified. Pancreas is prominent and there is mild surrounding inflammatory change which extends in the retroperitoneum inferiorly. No pancreatic ductal dilatation. No organized fluid collection is evident. Study is limited for evaluation of free air. Procedure Note Dk Pedersen MD - 11/27/2024 MRCP HISTORY: Concern for pancreatitis and choledocholithiasis. PROCEDURE: MRI images of the abdomen were performed. An MRCP was also performed. 3 D Reconstruction images were also performed. FINDINGS: Axial localization images are limited by artifact. The gallbladder is filled with numerous small stones. No evidence of acute cholecystitis. The biliary tree is minimally dilated to 4-5 mm. No definite filling defects are identified. Pancreas is prominent and there is mild surrounding inflammatory change which extends in the retroperitoneum inferiorly. No pancreatic ductal dilatation. No organized fluid collection is evident. Study is limited for evaluation of free air. IMPRESSION: Acute mild interstitial pancreatitis. Mild gallbladder wall thickening and numerous gallstones seen in the gallbladder which is not distended. Minimal biliary ductal dilatation. Findings are equivocal for acute cholecystitis. Please correlate. No evidence of choledocholithiasis. Images reviewed, interpreted, and dictated by Salvador Pedersen M.D. us Twin Triston PA-C IMG MRI ORDERABLES Final Res ult * (ABNORMAL) Lipase (11/27/2024 6:25 AM EDT) Lipase 856(H) <=60 U/L 11/27/2024 7:52 AM EDT [facility] Blood Venipuncture / Unknown 11/27/2024 6:25 AM EDT 11/27/2024 7:04 AM EDT us Twin Goldstein PA-C LAB BLOOD ORDERABLES Final R esult [facility] [address] [place] [address] * (ABNORMAL) Comprehensive metabolic panel (11/27/2024 6:25 AM EDT) Sodium 139 136 - 145 meq/L 11/27/2024 7:41 AM EDT [facility] Potassium 3.6 3.4 - 5.1 meq/L 11/27/2024 7:41 AM EDT [facility] Chloride 108 98 - 112 meq/L 11/27/2024 7:41 AM EDT [facility] CO2 26 22 - 29 meq/L 11/27/2024 7:41 AM EDT [facility] Calcium 8.4 8.4 - 10.2 mg/dL 11/27/2024 7:41 AM EDT [facility] Glucose 102(H) 74 - 100 mg/dL 11/27/2024 7:41 AM EDT [facility] BUN 14.8 7.0 - 18.7 mg/dL 11/27/2024 7:41 AM EDT [facility] Creatinine 0.74 0.57 - 1.11 mg/dL 11/27/2024 7:41 AM EDT [facility] BUN/Creatinine 20 8 - 20 11/27/2024 7:41 AM EDT [facility] eGFR (mL/min/1.73m2) 116 >=60 mL/min/1. 73m2 11/27/2024 7:41 AM EDT [facility] Albumin 2.9(L) 3.5 - 5.0 g/dL 11/27/2024 7:41 AM EDT [facility] Alkaline Phosphatase 138 40 - 150 U/L 11/27/2024 7:41 AM EDT [facility] ALT 170(H) <=34 U/L 11/27/2024 7:41 AM EDT [facility] Comment: ALT2 reagent used for testing does not contain P5P supplementation and therefore may miss ALT elevations in patients with B6 deficiency. This population may be as high as 10% in the [place], with risk factors including malabsorption, drug interactions, and alcoholic hepatitis. AST 68(H) 11 - 34 U/L 11/27/2024 7:41 AM EDT [facility] Comment: AST2 reagent used for testing does not contain P5P supplementation and therefore may miss AST elevations in patients with B6 deficiency. This population may be as high as 10% in the [place], with risk factors including malabsorption, drug interactions, and alcoholic hepatitis. Total Bilirubin 1.0 0.2 - 1.2 mg/dL 11/27/2024 7:41 AM EDT [facility] Protein, Total 6.4 6.4 - 8.3 g/dL 11/27/2024 7:41 AM EDT [facility] Globulin 3.5 2.5 - 4.1 g/dL 11/27/2024 7:41 AM T [facility] Anion Gap 9 4 - 12 11/27/2024 7:41 AM T [facility] A/G Ratio 0.8 0.7 - 1.9 11/27/2024 7:41 AM EDT [facility] Osmolality Calc 278.5 mOsm/kg 7:41 AM T [facility] Blood Venipuncture / Unknown 11/27/2024 6:25 AM EDT 11/27/2024 7:04 AM EDT us Twin Goldstein PA-C LAB BLOOD ORDERABLES Final R esult [facility] [address] [phone] * (ABNORMAL) CBC with automated diff (11/27/2024 6:25 AM EDT) WBC 9.5 4.0 - 10.0 K/ L 11/27/2024 7:07 AM EDT [facility] RBC 4.63 3.93 - 5.22 M/ L 11/27/2024 7:07 AM EDT [facility] Hemoglobin 13.7 11.2 - 15.7 GM/DL 11/27/2024 7:07 AM EDT [facility] Hematocrit 41.3 34.1 - 44.9 % 11/27/2024 7:07 AM EDT [facility] MCV 89 79 - 95 fL 11/27/2024 7:07 AM EDT [facility] MCH 29.6 25.6 - 32.2 pg 11/27/2024 7:07 AM EDT [facility] MCHC 33.2 32.2 - 35.5 GM/DL 11/27/2024 7:07 AM EDT [facility] RDW 13.9 11.7 - 14.4 % 11/27/2024 7:07 AM EDT [facility] Platelets 224 140 - 375 K/CU MM 11/27/2024 7:07 AM EDT [facility] MPV 9.9 9.4 - 12.3 fL 11/27/2024 7:07 AM EDT [facility] % Neutros 66 34 - 71 % 11/27/2024 7:07 AM EDT [facility] % Lymphs 25 19 - 52 % 11/27/2024 7:07 AM EDT [facility] % Monos 7 5 - 13 % 11/27/2024 7:07 AM EDT [facility] % Eos 2 1 - 6 % 11/27/2024 7:07 AM EDT [facility] % Baso 0 0 - 1 % 11/27/2024 7:07 AM EDT [facility] NRBC Absolute <0.01 0 - 0.012 K/ul 11/27/2024 7:07 AM EDT [facility] # Neutros 6.31(H) 1.56 - 6.13 K/ L 11/27/2024 7:07 AM EDT [facility] # Lymphs 2.34 1.18 - 3.74 K/ L 11/27/2024 7:07 AM EDT [facility] # Monos 0.62 0.24 - 0.86 K/ L 11/27/2024 7:07 AM EDT [facility] # Eos 0.20 0.04 - 0.36 K/ L 11/27/2024 7:07 AM EDT [facility] # Baso <0.03 0.01 - 0.08 K/ L 11/27/2024 7:07 AM EDT [facility] Immature Granulocytes-Re lative 0.30 0.01 - 0.43 % 11/27/2024 7:07 AM EDT [facility] # IG 0.03 0.00 - 0.03 K/uL 11/27/2024 7:07 AM EDT [facility] Blood Venipuncture / Unknown 11/27/2024 6:25 AM EDT 11/27/2024 7:03 AM EDT Narrative [facility] - 11/27/2024 7:07 AM EDT When CBC w/ Auto Diff is ordered the lab will add a Manual Differential as a quality check at no additional charge if: Lymphocytes greater than seventy five percent with normal or increased WBC Monocytes greater than Fifteen percent Basophil greater than four percent Bands >10% or several immature myeloids are seen on scan Blast? Flag noted Atypical Lymph flag noted Twin Goldstein PA-C LAB BLOOD ORDERABLES Final R esult [facility] [address] [phone] documented in this encounter Visit Diagnoses Diagnosis Acute pancreatitis- Primary Medical history unknown documented in this encounter Admitting Diagnoses Diagnosis Acute pancreatitis documented in this encounter Administered Medications Inactive Administered Medications - up to 3 most recent administrations Medication Order MAR Action Action Date Dose Rate Site acetaminophen (TYLENOL) tablet 1,000 mg 1,000 mg Every 6 hours PRN, oral, mild pain (1-3), headache, fever greater than or equal to 38C, Starting on Fri11/26/24 at 2217, 1st line analgesic acetaminophen (TYLENOL) tablet 500 mg 500 mg Every 4 hours, oral, First dose on Fri11/29/24 at 1800, Recommended maximum dose of acetaminophen is 4000 mg from all sources in 24 hours Given 11/30/2024 5:57 AM EDT 500 mg Given 11/30/2024 2:03 AM EDT 500 mg Given 11/29/2024 10:50 PM EDT 500 mg hydrALAZINE (APRESOLINE) injection 10 mg 10 mg Every 6 hours PRN, intravenous, hypertension (sbp greater than 160), Starting on Fri11/26/24 at 2216, Hold if SBP < 100 mmHg, DBP < 50 mmHg, or patient is on pressor. Look-alike/Sound-alike medication HYDROcodone-acetaminophen (NORCO) 5-325 mg per tablet 1 tablet 1 tablet Every 6 hours PRN, oral, moderate pain (4-6), Starting on Fri11/26/24 at 2217, 1st line analgesic Given 11/28/2024 10:01 PM EDT 1 tablet Given 11/27/2024 3:04 PM EDT 1 tablet ibuprofen (MOTRIN) tablet 200 mg 200 mg Every 4 hours, oral, First dose on Fri11/29/24 at 1800 Given 11/30/2024 5:56 AM EDT 200 mg Given 11/30/2024 2:03 AM EDT 200 mg Given 11/29/2024 10:49 PM EDT 200 mg lactated Ringer's infusion 150 mL/hr Continuous, intravenous, Starting on Fri11/26/24 at 2330 New Bag 11/28/2024 10:00 PM EDT 150 mL/hr 150 mL/hr New Bag 11/27/2024 3:05 PM EDT 150 mL/hr 150 mL/hr New Bag 11/26/2024 11:30 PM EDT 150 mL/hr 150 mL/hr lactated Ringer's infusion 100 mL/hr Continuous, intravenous, Starting on Fri11/29/24 at 1000, Pre-op Rate/Dose Change 11/29/2024 1:41 PM EDT 100 mL/hr Continued by Anesthesia 11/29/2024 1:35 PM EDT 100 mL/hr New Bag 11/29/2024 9:45 AM EDT 100 mL/hr 100 mL/hr melatonin tablet 3 mg 3 mg Every Night PRN, oral, insomnia, Starting on Fri11/26/24 at 2216 naloxone (NARCAN) injection 0.2 mg 0.2 mg Every 2 min PRN, intravenous, opioid reversal, respiratory depression,, Starting on Fri11/26/24 at 2216, Give for respiratory rate less than 10 breaths/min or if patient is difficult to arouse. Max dose = 10mg. Call provider. ondansetron (ZOFRAN) injection 4 mg 4 mg Every 8 hours PRN, intravenous, nausea, vomiting, Starting on Fri11/26/24 at 2216, Give IV if patient is unable to take orally. 1st line If inadequate response within 60 minutes, proceed to next-line agent for same PRN reason or contact provider if no further options ordered. For IV push, give over 2 - 5 minutes. Given 11/29/2024 2:13 PM EDT 4 mg ondansetron (ZOFRAN-ODT) disintegrating tablet 4 mg 4 mg Every 8 hours PRN, oral, nausea, vomiting, Starting on Fri11/26/24 at 2216, 1st line. If inadequate response within 60 minutes, proceed to next-line agent for same PRN reason or contact provider if no further options ordered. oxyCODONE (ROXICODONE) immediate release tablet 5 mg 5 mg Once as needed, oral, moderate pain (4-6), severe pain (7-10), For patients going home if they have not received hydromorphone or morphine., Starting on Fri11/29/24 at 1507, For 1 dose, Look-alike/Sound-alike medication, PACU Given 11/29/2024 3:46 PM EDT 5 mg pantoprazole (PROTONIX) injection 40 mg 40 mg Daily, intravenous, First dose on 11/27/24 at 0900, * DILUTE IN 10 ML NS AND GIVE IV SLOWLY OVER 3 MINUTES * Given 11/29/2024 8:10 AM EDT 40 mg Given 11/27/2024 11:58 AM EDT 40 mg piperacillin-tazobactam (ZOSYN) 3.375 g in sodium chloride 0.9 % (NS) MBP 100 mL IVPB 3.375 g Every 6 hours interval, intravenous, Administer over 3 Hours, First dose on 11/27/24 at 1400, Please choose an indication: Intra-abdominal Infection IVPB Started 11/30/2024 2:04 AM EDT 3.375 g 33.3 mL/hr IVPB Started 11/29/2024 8:16 PM EDT 3.375 g 33.3 mL/hr New Bag 11/29/2024 2:27 PM EDT 3.375 g piperacillin-tazobactam (ZOSYN) 4.5 g in sodium chloride 0.9 % (NS) MBP 100 mL IVPB 4.5 g Once, intravenous, Administer over 30 Minutes, On 11/27/24 at 0730, For 1 dose, Please choose an indication: Intra-abdominal Infection, Please choose an indication: Intra-abdominal Infection IVPB Started 11/27/2024 8:18 AM EDT 4.5 g 200 mL/hr sodium chloride flush 10 mL 10 mL As needed, intravenous, line care, Starting on Fri11/26/24 at 2216, Every 8 hours and PRN to flush documented in this encounter Active and Recently Administered Medications Times are shown in EDT. Scheduled Medication Order 11/28/2024 11/29/2024 11/30/2024 acetaminophen (TYLENOL) tablet 500 mg 500 mg Every 4 hours, oral, First dose on Fri11/29/24 at 1800, Recommended maximum dose of acetaminophen is 4000 mg from all sources in 24 hours 1736 (Given - Provider: Silverio Morales RN)2250 (Given - Provider: Leroy Hampton RN) 0203 (Given - Provider: Leroy Hampton RN)0557 (Given - Provider: Leroy Hampton RN)0941 (Not Given - Provider: Brendon Solis RN - Reason: Patient/family refused)1400 (Due) ibuprofen (MOTRIN) tablet 200 mg 200 mg Every 4 hours, oral, First dose on Fri11/29/24 at 1800 1737 (Given - Provider: Silverio Morales RN)2249 (Given - Provider: Leroy Hampton RN) 0203 (Given - Provider: Leroy Hampton RN)0556 (Given - Provider: Leroy Hampton RN)0941 (Not Given - Provider: Brendon Solis RN - Reason: Patient/family refused)1400 (Due) pantoprazole (PROTONIX) injection 40 mg 40 mg Daily, intravenous, First dose on 11/27/24 at 0900, * DILUTE IN 10 ML NS AND GIVE IV SLOWLY OVER 3 MINUTES * 0955 (Not Given - Provider: Mary Donovan RN - Reason: Patient/family refused) 0810 (Given - Provider: Silverio Morales, RN)0928 (JUN Hold - Provider: Automatic Transfer Provider - Reason: Unreviewed Transfer Orders)1722 (MAR Unhold - Provider: Silverio Morales, RN) 0941 (Not Given - Provider: Brendon Solis RN - Reason: Patient/family refused) piperacillin-tazobactam (ZOSYN) 3.375 g in sodium chloride 0.9 % (NS) MBP 100 mL IVPB (CANCELED) 3.375 g Every 6 hours interval, intravenous, Administer over 3 Hours, First dose on 11/27/24 at 1400, Please choose an indication: Intra-abdominal Infection 0130 (IVPB Started - Provider: Rachael Holden RN)0430 (IVPB Stopped - Provider: Rachael Holden RN)0955 (Not Given - Provider: Mary Donovan RN - Reason: Patient/family refused)1308 (Not Given - Provider: Mary Donovan RN - Reason: Patient/family refused)2200 (IVPB Started - Provider: Leroy Hampton RN) 0037 (IVPB Stopped - Provider: Leroy Hampton RN)0123 (IVPB Started - Provider: Leroy Hampton RN)0434 (IVPB Stopped - Provider: Leroy Hampton, BHAVNA)0810 (IVPB Started - Provider: Silverio Morales, BHAVNA)0928 (MAR Hold - Provider: Automatic Transfer Provider - Reason: Unreviewed Transfer Orders)1400 (Automatically Held - Provider: Automatic Transfer Provider)1427 (New Bag - Provider: Vernell Jorge - Comment: given over 4h)1722 (MAR Unhold - Provider: Silverio Morales, BHAVNA)2016 (IVPB Started - Provider: Leroy Hampton RN)2351 (IVPB Stopped - Provider: Leroy Hampton RN) 0204 (IVPB Started - Provider: Leroy Hampton, BHAVNA)0556 (IVPB Stopped - Provider: Leroy Hampton, BHAVNA) Continuous Medication Order 11/28/2024 11/29/2024 11/30/2024 lactated Ringer's infusion (CANCELED) 150 mL/hr Continuous, intravenous, Starting on Fri11/26/24 at 2330 2200 (New Bag - Provider: Leroy Hampton RN) lactated Ringer's infusion (CANCELED) 100 mL/hr Continuous, intravenous, Starting on Fri11/29/24 at 1000, Pre-op 0945 (New Bag - Provider: Rodger Toledo, BHAVNA)1335 (Continued by Anesthesia - Provider: Mp Crespo CRNA)1341 (Rate/Dose Change - Provider: Mp Crespo CRNA) lactated Ringer's infusion 50 mL/hr Continuous, intravenous, Starting on Fri11/29/24 at 1800 1737 (Not Given - Provider: Silverio Morales RN - Reason: Patient/family refused) PRN Medication Order 11/28/2024 11/29/2024 11/30/2024 acetaminophen (TYLENOL) tablet 1,000 mg 1,000 mg Every 6 hours PRN, oral, mild pain (1-3), headache, fever greater than or equal to 38C, Starting on Fri11/26/24 at 2217, 1st line analgesic 0928 (JUN Hold - Provider: Automatic Transfer Provider - Reason: Unreviewed Transfer Orders)1722 (MAR Unhold - Provider: Silverio Morales RN) vxblpbkkr-ifrdasodgbdbo-yiw nephrine-bupivacaine (TAP Block) solution (CANCELED) As needed, Starting on Fri11/29/24 at 1407, Intra-op 1407 (Given - Provider: Daryl Priest MD - Comment: local surgical site) hydrALAZINE (APRESOLINE) injection 10 mg 10 mg Every 6 hours PRN, intravenous, hypertension (sbp greater than 160), Starting on Fri11/26/24 at 2216, Hold if SBP < 100 mmHg, DBP < 50 mmHg, or patient is on pressor. Look-alike/Sound-alike medication 0928 (JUN Hold - Provider: Automatic Transfer Provider - Reason: Unreviewed Transfer Orders)1722 (MAR Unhold - Provider: Silverio Morales RN) HYDROcodone-acetaminophen (NORCO) 5-325 mg per tablet 1 tablet 1 tablet Every 6 hours PRN, oral, moderate pain (4-6), Starting on Fri11/26/24 at 2217, 1st line analgesic 2201 (Given - Provider: Leroy Hampton RN) 09 (JUN Hold - Provider: Automatic Transfer Provider - Reason: Unreviewed Transfer Orders)1721 ([facility] Unhold - Provider: Silverio Morales RN) HYDROmorphone (DILAUDID) injection 0.2 mg 0.2 mg Every 4 hours PRN, intravenous, moderate pain (4-6), severe pain (7-10), Starting on Fri11/29/24 at 1722, 3rd line analgesic. Give only if inadequate response (less than 50% reduction in pain score) 60 minutes after administration of 2nd line agent. May give in addition to 1st + 2nd line analgesics (+ adjuvants if ordered) melatonin tablet 3 mg 3 mg Every Night PRN, oral, insomnia, Starting on Fri11/26/24 at 2216 927 (JUN Hold - Provider: Automatic Transfer Provider - Reason: Unreviewed Transfer Orders)1721 ([facility] Unhold - Provider: Silverio Morales RN) naloxone (NARCAN) injection 0.2 mg 0.2 mg Every 2 min PRN, intravenous, opioid reversal, respiratory depression,, Starting on Fri11/26/24 at 2216, Give for respiratory rate less than 10 breaths/min or if patient is difficult to arouse. Max dose = 10mg. Call provider. 927 (JUN Hold - Provider: Automatic Transfer Provider - Reason: Unreviewed Transfer Orders)1721 ([facility] Unhold - Provider: Silverio Morales RN) ondansetron (ZOFRAN) injection 4 mg(Linked Group 1) 4 mg Every 8 hours PRN, intravenous, nausea, vomiting, Starting on Fri11/26/24 at 2216, Give IV if patient is unable to take orally. 1st line If inadequate response within 60 minutes, proceed to next-line agent for same PRN reason or contact provider if no further options ordered. For IV push, give over 2 - 5 minutes. 09 (JUN Hold - Provider: Automatic Transfer Provider - Reason: Unreviewed Transfer Orders)141 (Given - Provider: Mp Crespo CRNA)1722 (MAR Unhold - Provider: Silverio Morales, BHAVNA) ondansetron (ZOFRAN-ODT) disintegrating tablet 4 mg(Linked Group 1) 4 mg Every 8 hours PRN, oral, nausea, vomiting, Starting on Fri11/26/24 at 2216, 1st line. If inadequate response within 60 minutes, proceed to next-line agent for same PRN reason or contact provider if no further options ordered. 0928 (MAR Hold - Provider: Automatic Transfer Provider - Reason: Unreviewed Transfer Orders)1413 (See Alternative - Provider: Mp Crespo CRNA)1722 (MAR Unhold - Provider: Silverio Morales, BHAVNA) oxyCODONE (ROXICODONE) immediate release tablet 5 mg (COMPLETED) 5 mg Once as needed, oral, moderate pain (4-6), severe pain (7-10), For patients going home if they have not received hydromorphone or morphine., Starting on Fri11/29/24 at 1507, For 1 dose, Look-alike/Sound-alike medication, PACU 1546 (Given - Provider: Guillermina Brown RN) sodium chloride flush 10 mL(Linked Group 2) 10 mL As needed, intravenous, line care, Starting on Fri11/26/24 at 2216, Every 8 hours and PRN to flush 0928 (JUN Hold - Provider: Automatic Transfer Provider - Reason: Unreviewed Transfer Orders)172 (MAR Unhold - Provider: Silverio Morales, BHAVNA) Linked Groups Order Group 1: ondansetron (ZOFRAN-ODT) disintegrating tablet 4 mgJump to med 4 mg Every 8 hours PRN, oral, nausea, vomiting, Starting on Fri11/26/24 at 2216, 1st line. If inadequate response within 60 minutes, proceed to next-line agent for same PRN reason or contact provider if no further options ordered. Or ondansetron (ZOFRAN) injection 4 mgJump to med 4 mg Every 8 hours PRN, intravenous, nausea, vomiting, Starting on Fri11/26/24 at 2216, Give IV if patient is unable to take orally. 1st line If inadequate response within 60 minutes, proceed to next-line agent for same PRN reason or contact provider if no further options ordered. For IV push, give over 2 - 5 minutes. 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
--- OUTSIDE RECORDS SUMMARY | 2024-11-29 12:52 | XMS_ITS | Encounter Summary ---
Author Organization [employer] ([place], [place], [place], [place]) Address [address] [place] [address] Care Team Providers Care Labor Law Professor Name Role Phone [facility] Charlie, Find-A-Doc Primary Care Provider Reason for Visit * Auth/Cert (Routine) Specialty Diagnoses / Procedures Referred By Portillo t Referred To Contact Diagnoses Acute pancreatitis CHOLEDOCHOLITHIASIS [facility] [address] [place] [address] Phone: tel: fax: [facility] [address] [place] [address] Phone: tel: fax: Referral ID Status Reason Start Date Expiration Date Visits Re quested Visits Authorized [id number] 1 1 Encounter Details Date Type Department Care Team (Late st Contact Info) Description 11/29/2024 12:52 PM EDT - 11/29/2024 2:[address] [facility] Operating Room [address] [place] [address] Daryl Priest MD [facility] [place] [address] (CHOLECYSTECTOMY, LAPAROSCOPIC) Social History Tobacco Use Types Packs/Day Years Used Date Smoking Tobacco: Never Assessed Comments Unknown Sex and Gender Information Value Date Recorded Sex Assigned at Not on file Legal Sex Female 5:26 PM CDT Gender Identity Not on file Sexual Orientation Not on file documented as of this encounter Last Filed Vital Signs Vital Sign Reading Time Taken Comments Blood Pressure 125/71 11/29/2024 9:35 AM EDT Pulse 99 11/29/2024 9:35 AM EDT Temperature 36.5 C (97.7 F) 11/29/2024 9:35 AM EDT Respiratory Rate 21 11/29/2024 9:35 AM EDT Oxygen Saturation 97% 11/29/2024 9:35 AM EDT room air Inhaled Oxygen Concentration - - Weight 87.5 [...] services. GI and general surgery consulted. She underwentMRCP which identified acute mild interstitial pancreatitis, mild gallbladder wall thickening and numerous gallstones seen. Minimal biliary ductal dilation. Findings equivocal for acute cholecystitis.No evidence of choledocholithiasis. She was treated with [...] recommended continued monitoring overnight for diet advancement thefollowing morning. Patient tolerated the diet. Per general [...] Your Medications These medications were sent to [facility] at [place], [place] - [address] [facility] [address] [facility] [address] [address] acetaminophen 325 MG tablet acetaminophen 500 MG [...] all sources - While you are taking Venice please use Tylenol 325 mg tablets. After you are no longer using Norcoit is okay to use Tylenol 500 mg tablets. Discharge Diet: Regular Discharge Activity: As tolerated Discharge Dispo: Home Discharge condition: Stable and improved Discharge Follow Up: Contact information for follow-up [facility] Find-a-Doc Relationship: PCP - [facility] Find-a-Doc [place] [address] Next Steps: Follow up in 1 week(s) Daryl Priest MD Specialty: General Surgery, Surgery [address] [address] Next Steps: Follow up in 3 week(s) [...] [facility] Attending: Dr. Jayme Valdez Voice transcriptionist technology (Ready To [employer]) is used for dictation of this note and sound-alike words might be erroneously placed despite reviewing the note for accuracy. Errors in dictation mayreflect use of voice recognition software and not all errors in transcriptionist may have been detected prior to signing. [...] 100 mL IVPB 3.375 g intravenous Q6H Tiwn Goldstein PA-C IVPB Stopped at 11/28/24 0430 [...] liquid diet. Advance as tolerated. NPO at [place] for CCY. - Continue Zosyn 3.375g Q6h. [...] [facility]icians Attending: Dr. Jayme Valdez Voice transcriptionist technology (Ready To Travel) is used for dictation of this note and sound-alike words might be erroneously placed despite reviewing the note for accuracy. Errors in dictation mayreflect use of voice recognition software and not all errors in transcriptionist may have been detected prior to signing. [...] POC-GLUCOSE 116 (H) 70 - 110 mg/dL Hand Cooper Helper [id number] MR abdomen without IV contrast MRCP Narrative: [...] [facility] Attending: Dr. Jayme Valdez Voice transcriptionist technology (Ready To Travel) is used for dictation of this note and sound-alike words might be erroneously placed despite reviewing the note for accuracy. Errors in dictation mayreflect use of voice recognition software and not all errors in transcriptionist may have been detected prior to signing. [...] with history of cholelithiasis who presents to [facility] in [place], [place] for further evaluation and management of [...] file. Documented Allergies: Not on File Documented MANAGER ERP Medications: No medications prior to admission. Review [...] having acute pancreatitis. -Evaluated 11/26/2024, 10:18 PM ITwin, have personally reviewed pertinent laboratory, EKG, and [...] Twin Goldstein PA-C 11/26/2024, 10:18 PM Voice transcriptionist technology (Ready To [employer]) is used for dictation of this note and sound-alike words might be erroneously placed despite reviewing the note for accuracy. Errors in dictation mayreflect use of voice recognition software and not all errors in transcriptionist may have been detected prior to signing. [...] Ellis RD - 11/29/2024 1:05 PM EDT [facility] ADIME NUTRITION ASSESSMENT ADIME Nutrition Assessment The [...] this date with Surgery. IVF running. On .+BM 11/28. Will follow for diet advancement. Past [...] before. 1 week ago she was at [facility] ER and CT scan showed some abnormality of the gallbladder is consistent with gallstones. I do not have these records. She had another episode yesterday that was so severe that she was lying on the bathroom floor with pain. [facility] scan showed uncomplicated pancreatitis. Lipase [...] F/U MRCP - Surgery consult for CCY Nia Vazquez MD 11/27/2024 10:24 AM documented in this [...] were freed off cystic duct cystic artery neck of the gallbladder. Critical view obtained. Cystic artery controlled with clips and divided with LigaSure device. Cystic duct was carefully dissected out. Was wider than normal. Hem-o-manuelito clip was placed across the proximal cystic duct. A small opening was made and some gallstones were milked fromthe cystic duct into the field and later [...] utilizing 0-10 scale Recent Flowsheet Documentation Taken 11/30/2024812 by Silverio Morales RN Pain Score: Seven [...] utilizing 0-10 scale Recent Flowsheet Documentation Taken 11/29/2024801 by Silverio Morales RN Pain Score: Zero [...] past medical history including [facility]ithiasis [facility]. Case discussed with Dr. Burnham. [facility] complaining of upper abdominal pain which has [...] Priority Date/Time Associated Diagnosis Comments TISSUE EXAM (ANTWAN FUENTES) AP Routine 11/29/2024 2 :04 PM EDT Medical history unknown [place] LAPAROSCOPY SURG CHOLECYSTECTOMY 11/29/2024 1:35 PM EDT [...] No masses or mucosal lesions are identified. Cashier And Waiter/Waitress sections to include the en face cystic duct margin, neck, body and fundus are submitted in A1. HDM Tissue GALLBLADDER STRUCTURE / Unknown 11/29/2024 2:04 PM EDT us Daryl Priest MD PATHOLOGY/CYTOLOGY ORDERABLES Fi nal Result [facility] [address] [place] [address] * hCG, quantitative, (11/29/2024 9:26 AM EDT) HCG Serum Quant <3 0 - 5 mIU/mL 11/29/2024 10:24 AM EDT [facility] Comment: Because hCG is normally synthesized [...] Barth MD LAB BLOOD ORDERABLES Final Result Performing Organization Address City/[facility]/ZIP Co de Phone Number [facility] [address] [phone] * (ABNORMAL) Lipase (11/28/2024 9:59 AM EDT) Lipase 201(H) <=60 U/L 11/28/2024 10:34 AM EDT [facility] Blood Venipuncture / Unknown 11/28/2024 9:59 AM EDT 11/28/2024 10:12 AM EDT us Ana Erwin PA-C LAB BLOOD ORDERABLES Final Res ult Performing Organization Address [facility] Co de Phone Number [facility] [address] [phone] * (ABNORMAL) CBC - Hemogram (SJ-BKR) (11/28/2024 9:59 AM EDT) WBC 11.6(H) 4.0 - 10.0 K/ L 11/28/2024 10:14 AM EDT [facility] RBC 4.50 3.93 - 5.22 M/ L 11/28/2024 10:14 AM EDT [facility] Hemoglobin 13.7 11.2 - 15.7 GM/DL 11/28/2024 10:14 AM EDT [facility] Hematocrit 40.3 34.1 - 44.9 % 11/28/2024 10:14 AM EDT [facility] MCV 90 79 - 95 fL 11/28/2024 10:14 AM EDT [facility] MCH 30.4 25.6 - 32.2 pg 11/28/2024 10:14 AM EDT [facility] MCHC 34.0 32.2 - 35.5 GM/DL 11/28/2024 10:14 AM EDT [facility] RDW 13.7 11.7 - 14.4 % 11/28/2024 10:14 AM EDT [facility] Platelets 252 140 - 375 K/CU MM 11/28/2024 10:14 AM EDT [facility] MPV 10.0 9.4 - 12.3 fL 11/28/2024 10:14 AM EDT [facility] Blood Venipuncture / Unknown 11/28/2024 9:59 AM EDT 11/28/2024 10:12 AM EDT us Ana Erwin PA-C LAB BLOOD ORDERABLES Final Res ult [facility] [address] [place] [address] * (ABNORMAL) Comprehensive metabolic panel (11/28/2024 9:59 AM EDT) Sodium 140 136 - 145 meq/L 11/28/2024 10:42 AM EDT [facility] Potassium 3.6 3.4 - 5.1 meq/L 11/28/2024 10:42 AM EDT [facility] Chloride 110 98 - 112 meq/L 11/28/2024 10:42 AM EDT [facility] CO2 22 22 - 29 meq/L 11/28/2024 10:42 AM EDT [facility] Calcium 8.7 8.4 - 10.2 mg/dL 11/28/2024 10:42 AM EDT [facility] Glucose 94 74 - 100 mg/dL 11/28/2024 10:42 AM EDT [facility] BUN 7.8 7.0 - 18.7 mg/dL 11/28/2024 10:42 AM EDT [facility] Creatinine 0.65 0.57 - 1.11 mg/dL 11/28/2024 10:42 AM EDT [facility] BUN/Creatinine 12 8 - 20 11/28/2024 10:42 AM [facility] eGFR (mL/min/1.73m2) 126 >=60 mL/min/1. 73m2 11/28/2024 10:42 AM [facility] Albumin 3.1(L) 3.5 - 5.0 g/dL 11/28/2024 10:42 AM [facility] Alkaline Phosphatase 115 40 - 150 U/L 11/28/2024 10:42 AM [facility] ALT 105(H) <=34 U/L 11/28/2024 10:42 AM [facility] Comment: ALT2 reagent used for testing does not contain P5P supplementation and therefore may miss ALT elevations in patients with B6 deficiency. This population may be as high as 10% in the [place], with risk factors including malabsorption, drug interactions, and alcoholic hepatitis. AST 25 11 - 34 U/L 11/28/2024 10:42 AM [facility] Comment: AST2 reagent used for testing does not contain P5P supplementation and therefore may miss AST elevations in patients with B6 deficiency. This population may be as high as 10% in the [place], with risk factors including malabsorption, drug interactions, and alcoholic hepatitis. Total Bilirubin 0.5 0.2 - 1.2 mg/dL 11/28/2024 10:42 AM [facility] Protein, Total 7.0 6.4 - 8.3 g/dL 11/28/2024 10:42 AM [facility] Globulin 3.9 2.5 - 4.1 g/dL 11/28/2024 10:42 AM [facility] Anion Gap 12 4 - 12 11/28/2024 10:42 AM [facility] A/G Ratio 0.8 0.7 - 1.9 11/28/2024 10:42 AM [facility] Osmolality Calc 277.4 mOsm/kg 10:42 AM [facility] Blood Venipuncture / Unknown 11/28/2024 9:59 AM EDT 11/28/2024 10:12 AM EDT Ana Erwin PA-C LAB BLOOD ORDERABLES Final Res ult Performing Organization Address City/[facility]/ZIP Co de Phone Number [facility] [address] [phone] * (ABNORMAL) Glucose, Nova Meter (11/27/2024 11:38 AM EDT) POC-GLUCOSE 116(H) 70 - 110 mg/dL 11/27/2024 11:39 AM EDT [facility] Comment: In the event of poor peripheral blood flow, venous or arterial blood should be used due to the potential of erroneous results. Notified Nurse RBV Hand Cooper Helper [id number] 11/27/2024 11:39 AM EDT [facility] Blood WHOLE BLOOD / Unknown 11/27/2024 11:38 AM EDT 11/27/2024 11:39 AM EDT Narrative [facility] - 11/27/2024 11:39 AM EDT Hand Cooper Helper ID is - [id number] Ana Erwin PA-C POINT OF CARE TEST ORDERABLES Final Result Performing Organization Address [facility]/ZIP Co de Phone Number [facility] [address] [phone] * MR abdomen without IV contrast MRCP [...] interpreted, and dictated by Salvador Pedersen M.D. Twin Goldstein PA-C IMG MRI ORDERABLES Final Res ult * (ABNORMAL) Lipase (11/27/2024 6:25 AM EDT) Lipase 856(H) <=60 U/L 11/27/2024 7:52 AM EDT [facility] Blood Venipuncture / Unknown 11/27/2024 6:25 AM EDT 11/27/2024 7:04 AM EDT Twin Goldstein PA-C LAB BLOOD ORDERABLES Final R esult [facility] [address] [phone] * (ABNORMAL) Comprehensive metabolic panel (11/27/2024 6:25 AM EDT) Sodium 139 136 - 145 meq/L 11/27/2024 7:41 AM [facility] Potassium 3.6 3.4 - 5.1 meq/L 11/27/2024 7:41 AM [facility] Chloride 108 98 - 112 meq/L 11/27/2024 7:41 AM [facility] CO2 26 22 - 29 meq/L 11/27/2024 7:41 AM [facility] Calcium 8.4 8.4 - 10.2 mg/dL 11/27/2024 7:41 AM [facility] Glucose 102(H) 74 - 100 mg/dL 11/27/2024 7:41 AM [facility] BUN 14.8 7.0 - 18.7 mg/dL 11/27/2024 7:41 AM [facility] Creatinine 0.74 0.57 - 1.11 mg/dL 11/27/2024 7:41 AM [facility] BUN/Creatinine 20 8 - 20 11/27/2024 7:41 AM [facility] eGFR (mL/min/1.73m2) 116 >=60 mL/min/1. 73m2 11/27/2024 7:41 AM [facility] Albumin 2.9(L) 3.5 - 5.0 g/dL 11/27/2024 7:41 AM [facility] Alkaline Phosphatase 138 40 - 150 U/L 11/27/2024 7:41 AM [facility] ALT 170(H) <=34 U/L 11/27/2024 7:41 AM [facility] Comment: ALT2 reagent used for testing does not contain P5P supplementation and therefore may miss ALT elevations in patients with B6 deficiency. This population may be as high as 10% in the [place], with risk factors including malabsorption, drug interactions, and alcoholic hepatitis. AST 68(H) 11 - 34 U/L 11/27/2024 7:41 AM [facility] Comment: AST2 reagent used for testing does not contain P5P supplementation and therefore may miss AST elevations in patients with B6 deficiency. This population may be as high as 10% in the [place], with risk factors including malabsorption, drug interactions, and alcoholic hepatitis. Total Bilirubin 1.0 0.2 - 1.2 mg/dL 11/27/2024 7:41 AM EDT [facility] Protein, Total 6.4 6.4 - 8.3 g/dL 11/27/2024 7:41 AM EDT [facility] Globulin 3.5 2.5 - 4.1 g/dL 11/27/2024 7:41 AM EDT [facility] Anion Gap 9 4 - 12 11/27/2024 7:41 AM EDT [facility] A/G Ratio 0.8 0.7 - 1.9 11/27/2024 7:41 AM EDT [facility] Osmolality Calc 278.5 mOsm/kg 7:41 AM EDT [facility] Blood Venipuncture / Unknown 11/27/2024 6:25 AM EDT 11/27/2024 7:04 AM EDT Twin Goldstein PA-C LAB BLOOD ORDERABLES Final R esult [facility] [address] [phone] * (ABNORMAL) CBC with automated diff (11/27/2024 6:25 AM EDT) WBC 9.5 4.0 - 10.0 K/ L 11/27/2024 7:07 AM EDT [facility] RBC 4.63 3.93 - 5.22 M/ L 11/27/2024 7:07 AM EDT [facility] Hemoglobin 13.7 11.2 - 15.7 GM/DL 11/27/2024 7:07 AM EDT [facility] Hematocrit 41.3 34.1 - 44.9 % 11/27/2024 7:07 AM EDT [facility] MCV 89 79 - 95 fL 11/27/2024 7:07 AM EDT [facility] MCH 29.6 25.6 - 32.2 pg 11/27/2024 7:07 AM EDT [facility] MCHC 33.2 32.2 - 35.5 GM/DL 11/27/2024 7:07 AM EDT [facility] RDW 13.9 11.7 - 14.4 % 11/27/2024 7:07 AM EDT [facility] Platelets 224 140 - 375 K/CU MM 11/27/2024 7:07 AM EDT [facility] MPV 9.9 9.4 - 12.3 fL 11/27/2024 7:07 AM EDT [facility] % Neutros 66 34 - 71 % 11/27/2024 7:07 AM EDT [facility] % Lymphs 25 19 - 52 % 11/27/2024 7:07 AM EDT [facility] % Monos 7 5 - 13 % 11/27/2024 7:07 AM EDT [facility] % Eos 2 1 - 6 % 11/27/2024 7:07 AM EDT [facility] % Baso 0 0 - 1 % 11/27/2024 7:07 AM EDT [facility] NRBC Absolute <0.01 0 - 0.012 K/ul 11/27/2024 7:07 AM EDT [facility] # Neutros 6.31(H) 1.56 - 6.13 K/ L 11/27/2024 7:07 AM EDT [facility] # Lymphs 2.34 1.18 - 3.74 K/ L 11/27/2024 7:07 AM EDT [facility] # Monos 0.62 0.24 - 0.86 K/ L 11/27/2024 7:07 AM EDT [facility] # Eos 0.20 0.04 - 0.36 K/ L 11/27/2024 7:07 AM EDT [facility] # Baso <0.03 0.01 - 0.08 K/ L 11/27/2024 7:07 AM EDT [facility] Immature Granulocytes-Re lative 0.30 0.01 - 0.43 % 11/27/2024 7:07 AM EDT [facility] # IG 0.03 0.00 - 0.03 K/uL 11/27/2024 7:07 AM EDT [facility] Blood Venipuncture / Unknown 11/27/2024 6:25 AM EDT 11/27/2024 7:03 AM EDT Narrative [facility] - 11/27/2024 7:07 AM EDT When [...] Blast? Flag noted Atypical Lymph flag noted us Twin Goldstein PA-C LAB BLOOD ORDERABLES Final R esult [facility] [address] [phone] documented in this encounter Visit Diagnoses Diagnosis Acute pancreatitis- Primary Medical history unknown Medical history unknown documented in this encounter [...] Given 11/29/2024 10:50 PM EDT 500 mg vltqeuowl-zzblaadcsqexg-rpjxanriody-bu pivacaine (TAP Block) solution As needed, Starting on Fri11/29/24 at 1407, Intra-op Given 11/29/2024 2:07 PM EDT 30 mLs Oth er hydrALAZINE (APRESOLINE) injection 10 mg 10 mg [...] analgesic Given 11/28/2024 10:01 PM EDT 1 table t Given 11/27/2024 3:04 PM EDT 1 tablet ibuprofen (MOTRIN) tablet 200 mg 200 mg Every 4 hours, oral, First dose on Fri11/29/24 at 1800 Given 11/30/2024 5:56 AM EDT 200 mg Given 11/30/2024 2:03 AM EDT 200 mg Given 11/29/2024 10:49 PM EDT 200 mg melatonin tablet 3 mg 3 mg Every [...] contact provider if no further options ordered. pantoprazole (PROTONIX) injection 40 mg 40 mg Daily, intravenous, First dose on 11/27/24 at 0900, * DILUTE IN 10 ML NS AND GIVE IV SLOWLY OVER 3 MINUTES * Given 11/29/2024 8:10 AM EDT 40 mg Given 11/27/2024 11:58 AM EDT 40 mg sodium chloride flush 10 mL 10 mL [...] Patient/family refused) 0810 (Given - Provider: Silverio Morales RN)0928 (MAR Hold - Provider: Automatic Transfer Provider - Reason: Unreviewed Transfer Orders)1722 (MAR Unhold - Provider: Silverio Morales RN) 0941 (Not Given - Provider: Brendon Solis RN - Reason: Patient/family refused) piperacillin-tazobactam (ZOSYN) 3.375 g in sodium chloride 0.9 % (NS) MBP 100 mL IVPB (CANCELED) 3.375 g Every 6 hours interval, intravenous, Administer over 3 Hours, First dose on Fri11/27/24 at 1400, Please choose an indication: Intra-abdominal [...] Hampton RN)0123 (IVPB Started - Provider: Leroy Hampton, BHAVNA)0434 (IVPB Stopped - Provider: Leroy Hampton RN)0810 (IVPB Started - Provider: Silverio Morales, BHAVNA)0928 (MAR Hold - Provider: Automatic Transfer Provider - Reason: Unreviewed Transfer Orders)1400 (Automatically Held - Provider: Automatic Transfer Provider)1427 (New Bag - Provider: Vernell Jorge - Comment: given over 4h)1722 (MAR Unhold - Provider: Silverio Morales, BHAVNA)2016 (IVPB Started - Provider: Leroy Hampton, BHAVNA)2351 (IVPB Stopped - Provider: Leroy Hampton RN) 0204 (IVPB Started - Provider: eLroy Hampton RN)0556 (IVPB Stopped - Provider: Leroy Hampton, BHAVNA) Continuous Medication Order 11/28/2024 11/29/2024 11/30/2024 lactated Ringer's infusion (CANCELED) 150 mL/hr Continuous, intravenous, Starting on Fri11/26/24 at 2330 2200 (New Bag - Provider: Leroy Hampton, BHAVNA) lactated Ringer's infusion (CANCELED) 100 mL/hr Continuous, [...] Transfer Provider - Reason: Unreviewed Transfer Orders)172 (JUN Unhold - Provider: Silverio Morales RN) asubezuic-dwdxlwphsnglq-mtz nephrine-bupivacaine (TAP Block) solution (CANCELED) As needed, [...] Transfer Provider - Reason: Unreviewed Transfer Orders)172 (JUN Unhold - Provider: Silverio Morales RN) HYDROcodone-acetaminophen (NORCO) 5-325 mg per tablet 1 tablet 1 tablet Every 6 hours PRN, oral, moderate pain (4-6), Starting on Fri11/26/24 at 2217, 1st line analgesic 2201 (Given - Provider: Leroy Hampton RN) 0928 (JUN Hold - Provider: Automatic Transfer Provider - Reason: Unreviewed Transfer Orders)172 (JUN Unhold - Provider: Silverio Morales RN) HYDROmorphone (DILAUDID) injection 0.2 mg 0.2 mg Every 4 hours PRN, intravenous, moderate pain (4-6), severe pain (7-10), Starting on 11/29/24 at 1722, 3rd line analgesic. Give only if inadequate response (less than 50% reduction in pain score) 60 minutes after administration of 2nd line agent. May give in addition to 1st + 2nd line analgesics (+ adjuvants if ordered) melatonin tablet 3 mg 3 mg Every Night PRN, oral, insomnia, Starting on Fri11/26/24 at 2216 09 ([facility] Hold - Provider: Automatic Transfer Provider - Reason: Unreviewed Transfer Orders)172 ([facility] Unhold - Provider: Silverio Morales, BHAVNA) naloxone (NARCAN) injection 0.2 mg 0.2 mg Every 2 min PRN, intravenous, opioid reversal, respiratory depression,, Starting on Fri11/26/24 at 2216, Give for respiratory rate less than 10 breaths/min or if patient is difficult to arouse. Max dose = 10mg. Call provider. 927 (JUN Hold - Provider: Automatic Transfer Provider - Reason: Unreviewed Transfer Orders)1721 ([facility] Unhold - Provider: Silverio Morales, BHAVNA) ondansetron (ZOFRAN) injection 4 mg(Linked Group 1) 4 mg Every 8 hours PRN, intravenous, nausea, vomiting, Starting on Fri11/26/24 at 2216, Give IV if patient is unable to take orally. 1st line If inadequate response within 60 minutes, proceed to next-line agent for same PRN reason or contact provider if no further options ordered. For IV push, give over 2 - 5 minutes. 927 ([facility] Hold - Provider: Automatic Transfer Provider - Reason: Unreviewed Transfer Orders)141 (Given - Provider: Mp Crespo CRNA)172 ([facility] Unhold - Provider: Silverio Morales, BHAVNA) ondansetron (ZOFRAN-ODT) disintegrating tablet 4 mg(Linked Group 1) 4 mg Every 8 hours PRN, oral, nausea, vomiting, Starting on Fri11/26/24 at 2216, 1st line. If inadequate response within 60 minutes, proceed to next-line agent for same PRN reason or contact provider if no further options ordered. 0928 ([facility] Hold - Provider: Automatic Transfer Provider - Reason: Unreviewed Transfer Orders)141 (See Alternative - Provider: Mp Crespo CRNA)172 ([facility] Unhold - Provider: Silverio Morales RN) oxyCODONE (ROXICODONE) immediate release tablet 5 mg [...] Transfer Provider - Reason: Unreviewed Transfer Orders)1722 ([facility] Unhold - Provider: Silverio Morales RN) Linked Groups Order Group 1: ondansetron (ZOFRAN-ODT) [...] flush documented in this encounter Care Teams Labor Law Professor Relationship Specialty Start Date End Date [facility] Connection, Find-A-Doc [facility] Connection Find-a-Doc [place] [phone] PCP - General 11/26/24 documented as of this encounter
--- OUTSIDE RECORDS SUMMARY | 2024-11-29 13:35 | XMS_ITS | Encounter Summary ---
Author Organization [email or web address] ([place], [place], [place], [place]) Address [address] [address] Care Team Providers Care Videogame Designer Name Role Phone [facility], Find-A-Doc Primary Care Provider Reason for Visit * Auth/Cert (Routine) Specialty Diagnoses / Procedures Referred By Portillo t Referred To Contact Diagnoses Acute pancreatitis CHOLEDOCHOLITHIASIS [facility] [address] [place] [address] Phone: tel: fax: [facility] [address] [place] [address] Phone: tel: fax: Referral ID Status Reason Start Date Expiration Date Visits Re quested Visits Authorized [id number] 1 1 Encounter Details Date Type Department Care Team (Late st Contact Info) Description 11/29/2024 1:35 PM EDT Anesthesia Event [facility] Operating Room [address] [place] [address] Tamra Alejo MD [address] [place] [address] Mihai Gray MD [address] [place], [place] [id number] Anesthesia Record Procedure Summary Procedure Name Responsible Anesthesiologist Anesthesia Start Time Anesthesia Stop Time (CHOLECYSTECTOMY, LAPAROSCOPIC) (Abdomen) Tamra Alejo MD 11/29/24 1335 11/29/24 1523 Events Date Time Event Comment 11/29/2024 1335 An Start Patient identif ied and chart reviewed. 1335 An Start Data Anesthesia mac luis felipe and monitors checked. 1343 Pre-Induction Eval FDA anest hesia machine pre-use checkout completed. Patient status reassessed prior to start of anesthesia care. 1344 An Induction 1356 An Intubation 1356 Anesthesia Ready 1512 An Extubation 1515 an stop data 1519 Handoff to Receiving I compl eted my handoff to the receiving clinician during which we: 1. Identified the patient. 2. Identified the responsible provider. 3. Reviewed the pertinent medical history. 4. Discussed the surgical course. 5. Reviewed intra-op anesthesia management and issues during anesthesia. 6. Set expectations for post-procedure period. 7. Allowed opportunity for questions and acknowledgement of understanding. 1523 An Stop Meds Name Total dexamethasone (DECADRON) injection 4 mg/ mL 8 mg fentaNYL (SUBLIMAZE) injection 200 mcg glycopyrrolate (ROBINUL) injection 0.4 m g lidocaine (XYLOCAINE) injection 2% 100 m g neostigmine (PROSTIGMINE) 1 mg/mL inject ion 5 mg propofol (DIPRIVAN) injection 10 mg/mL b olus 200 mg rocuronium (ZEMURON) 100 mg/10 mL inject ion 50 mg dexmedetomidine (PRECEDEX) injection 100 mcg/mL 12 mcg ondansetron (ZOFRAN) injection 4 mg 4 mg piperacillin-tazobactam (ZOS YN) 3.375 g in sodium chloride 0.9 % (NS) MBP 100 mL IVPB 3.375 g esmolol (BREVIBLOC) injection 10 mg/mL 5 mg ketorolac (TORADOL) injection 30 mg/mL 1 5 mg lactated Ringer's infusion 0 mL * Agents Name O2 N2O Air SEVOFLURANE * Blood No blood administrations on file. Lines, Drains, and Airways Type Details Placement Removal Wound 11/29/24; 1405; Inci alejandra; Abdomen; Not applicable 11/29/24 1405 by Nicole Prince RN Peripheral IV Placement Date: 11/12 12/06; Placement Time: 0158; Size: 22 G; Orientation: Left, Posterior; Location: Hand; Site Prep: Chlorhexidine ; Inserted by: Leroy HUGGINS; Insertion attempts: 1; Removal Date: 11/30/24; Removal Time: 1141 11/29/24 0158 by Leroy Hampton RN 11/30/24 1141 by Brendon Solis RN ETT Placement Date 11/29; Placement Time 1356 (created via procedure documentation); Airway Size 7.5; Airway Cuffed Yes; Removal Date 11/29/24; Removal Time 1512 11/29/24 1356 by Vernell Jorge 11/29/24 1512 by Mp Crespo CRNA documented in this encounter Social History Tobacco Use Types Packs/Day Years Used Date Smoking Tobacco: Never Assessed Comments Unknown Sex and Gender Information Value Date Recorded Sex Assigned at Not on file Legal Sex Female 5:26 PM CDT Gender Identity Not on file Sexual Orientation Not on file documented as of this encounter OR Notes * Anesthesia Postprocedure Evaluation - Mp Crespo CRNA - 11/29/2024 3:22 PM EDT Patient: Alison Mathew Procedure Summary Date: 11/29/24 Room / Location: [facility] OR OPERATING ROOM Anesthesia Start: 1335 Anesthesia Stop: Procedure: (CHOLECYSTECTOMY, LAPAROSCOPIC) (Abdomen) Diagnosis: Medical history unknown (Medical history unknown) Surgeons: Daryl Priest MD Responsible Provider: Tamra Alejo MD Anesthesia Type: general ASA Status: 2 Anesthesia Type: general Vitals Value Taken Time BP 98/50 11/29/24 1521 Temp 97.5 11/29/24 1522 Pulse 90 11/29/24 1522 Resp 14 11/29/24 1522 SpO2 98 % 11/29/24 1522 Vitals shown include unfiled device data. Ht 1.6 m (5' 3 ) Wt 87.5 kg (193 lb) BMI 34.19 kg/m?? Anesthesia Post Evaluation Patient location during evaluation: PACU Patient participation: complete - patient participated Level of consciousness: awake and alert Pain score: 2 Pain management: adequate Multimodal analgesia pain management approach Airway patency: patent Two or more strategies used to mitigate risk of obstructive sleep apnea Cardiovascular status: acceptable Respiratory status: acceptable and face mask Hydration status: acceptable Color: [place] Activity: Moves 4 extremities Inotropes/Vasopressors: N/A No notable events documented. Mp Crespo CRNA 11/29/2024 3:22 PM EDT * Anesthesia Procedure Notes - Mp Crespo CRNA - 11/29/2024 2:01 PM EDT Associated Order(s): Intubation Intubation Authorized by: Mp Crespo CRNA Performed by: Vernell Jorge Date/Time: 11/29/2024 1:56 PM Urgency: elective Indications and Patient Condition Indications for airway management: anesthesia Spontaneous Ventilation: absent Sedation level: general anesthesia Preoxygenated: yes Patient position: sniffing Mask difficulty assessment: 2 - vent by mask + OA or adjuvant +/- NMBA Planned trial extubation: yes Final Airway Details Final airway type: endotracheal airway Endotracheal tube type: ETT Cuffed: yes Successful intubation technique: direct laryngoscopy Facilitating devices/methods: intubating stylet Endotracheal tube insertion site: oral Blade: Tamanna Blade size: #3 ETT size (mm): 7.5 Cormack-Lehane Classification: grade IIb - view of arytenoids or posterior of glottis only Placement verified by: chest auscultation and capnometry Measured from: lips ETT to lips (cm): 22 Number of attempts at approach: 1 Number of other approaches attempted: 0 Additional Comments Dentition unchanged, atraumatic * Anesthesia Preprocedure Evaluation - Mihai Gray MD - 11/29/2024 9:14 AM EDT ANESTHESIA PREOPERATIVE EVALUATION Patient: Alison Mathew Date/Time: 11/29/24 1252 Procedure: (CHOLECYSTECTOMY, LAPAROSCOPIC) Location: [facility] OR OPERATING ROOM Surgeons: Daryl Priest MD Vitals: 11/28/24 2310 11/29/24 0650 11/29/24 0802 11/29/24 0804 BP: 120/80 104/62 94/53 Pulse: 88 84 80 Resp: Temp: 97.7 ??F (36.5 ??C) 98.1 ??F (36.7 ??C) 97.3 ??F (36.3 ??C) TempSrc: Oral Oral Oral SpO2: 96% 96% Weight: Height: Not on File No current outpatient medications INPATIENT MEDICATIONS pantoprazole 40 mg intravenous Daily 40 mg at 11/29/24 0810 piperacillin-tazobactam 3.375 g intravenous Q6H 3.375 g at 11/29/24 0810 Problem List as of 11/29/2024 Digestive * (Principal) Acute pancreatitis No past surgical history on file. acute pancreatitis due to biliary obstruction due to suspected choledocholithiasis Echo Results (last 7 days) No results found for the last 168 hours. Chemistry Component Value Date/Time NA 140 11/28/2024 0959 K 3.6 11/28/2024 0959 CL 110 11/28/2024 0959 CO2 22 11/28/2024 0959 BUN 7.8 11/28/2024 0959 CREATININE 0.65 11/28/2024 0959 Component Value Date/Time CALCIUM 8.7 11/28/2024 0959 ALKPHOS 115 11/28/2024 0959 AST 25 11/28/2024 0959 ALT 105 (H) 11/28/2024 0959 BILITOT 0.5 11/28/2024 0959 Lab Results Component Value Date WBC 11.6 (H) 11/28/2024 HGB 13.7 11/28/2024 HCT 40.3 11/28/2024 MCV 90 11/28/2024 PLT 252 11/28/2024 Clinical information reviewed: No data recorded Physical Exam Airway Mallampati: III TM distance: >3 FB Neck ROM: full Cardiovascular - normal exam Dental - normal exam Pulmonary - normal exam Abdominal Anesthesia Plan ASA 2 general intravenous induction Anesthetic plan and risks discussed with patient. documented in this encounter Plan of Treatment Not on file documented as of this encounter Procedures Procedure Name Priority Date/Time Associated Diagnosis Comments ANESTHESIA INTUBATION Routine 11/29/2024 1:56 PM EDT documented in this encounter Results * AN SINGLE LUMEN INTUBATION (11/29/2024 1:56 PM EDT) Mp Conner CRNA - 11/29/2024 1:56 PM EDT Mp Crespo CRNA 11/29/2024 2:15 PM Intubation Authorized by: Mp Crespo CRNA Performed by: Vernell Joreg Date/Time: 11/29/2024 1:56 PM Urgency: elective Indications and Patient Condition Indications for airway management: anesthesia Spontaneous Ventilation: absent Sedation level: general anesthesia Preoxygenated: yes Patient position: sniffing Mask difficulty assessment: 2 - vent by mask + OA or adjuvant +/- NMBA Planned trial extubation: yes Final Airway Details Final airway type: endotracheal airway Endotracheal tube type: ETT Cuffed: yes Successful intubation technique: direct laryngoscopy Facilitating devices/methods: intubating stylet Endotracheal tube insertion site: oral Blade: Tamanna Blade size: #3 ETT size (mm): 7.5 Cormack-Lehane Classification: grade IIb - view of arytenoids or posterior of glottis only Placement verified by: chest auscultation and capnometry Measured from: lips ETT to lips (cm): 22 Number of attempts at approach: 1 Number of other approaches attempted: 0 Additional Comments Dentition unchanged, atraumatic Mp Crespo CRNA ANESTHESIA ORDERABLES Edited Result - Final documented in this encounter Visit Diagnoses Not on filedocumented in this encounter Administered Medications Inactive Administered Medications - up to 3 most recent administrations Medication Order MAR Action Action Date Dose Rate Site dexAMETHasone (DECADRON) injection As needed, intravenous, Starting on Fri11/29/24 at 1416, Anesthesia Intra-op Given 11/29/2024 2:16 PM EDT 8 mg dexmedeTOMIDine (PRECEDEX) injection As needed, intravenous, Starting on Fri11/29/24 at 1342, Anesthesia Intra-op Given 11/29/2024 3:14 PM EDT 4 mcg Given 11/29/2024 2:58 PM EDT 4 mcg Given 11/29/2024 1:42 PM EDT 4 mcg esmoloL (BREVIBLOC) injection As needed, intravenous, Starting on Fri11/29/24 at 1430, Anesthesia Intra-op Given 11/29/2024 2:30 PM EDT 5 mg fentaNYL PF (SUBLIMAZE) injection As needed, intravenous, Starting on Fri11/29/24 at 1344, Anesthesia Intra-op Given 11/29/2024 3:14 PM EDT 50 mcg Given 11/29/2024 3:11 PM EDT 50 mcg Given 11/29/2024 2:09 PM EDT 50 mcg glycopyrrolate (ROBINUL) injection As needed, intravenous, Starting on Fri11/29/24 at 1454, Anesthesia Intra-op Given 11/29/2024 2:54 PM EDT 0.4 mg ketorolac (TORADOL) injection As needed, intravenous, Starting on Fri11/29/24 at 1454, Anesthesia Intra-op Given 11/29/2024 2:54 PM EDT 15 mg lactated Ringer's infusion 100 mL/hr Continuous, intravenous, Starting on Fri11/29/24 at 1000, Pre-op Rate/Dose Change 11/29/2024 1:41 PM EDT 100 mL/hr Continued by Anesthesia 11/29/2024 1:35 PM EDT 100 mL/hr New Bag 11/29/2024 9:45 AM EDT 100 mL/hr 100 mL/hr lidocaine (XYLOCAINE) injection 2% As needed, intravenous, Starting on Fri11/29/24 at 1344, Anesthesia Intra-op Given 11/29/2024 1:44 PM EDT 100 mg neostigmine methylsulfate (PROSTIGMINE) injection As needed, intravenous, Starting on Fri11/29/24 at 1454, Anesthesia Intra-op Given 11/29/2024 2:54 PM EDT 5 mg ondansetron (ZOFRAN) injection 4 mg 4 mg [...] Given 11/29/2024 2:13 PM EDT 4 mg piperacillin-tazobactam (ZOSYN) 3.375 g in sodium [...] Bag 11/29/2024 2:27 PM EDT 3.375 g propofol (DIPRIVAN) injection 10 mg/mL bolus As needed, intravenous, Starting on 11/29/24 at 1356, Anesthesia Intra-op Given 11/29/2024 1:46 PM EDT 50 mg Given 11/29/2024 1:44 PM EDT 150 mg rocuronium (ZEMURON) injection As needed, intravenous, Starting on 11/29/24 at 1344, Anesthesia Intra-op Given 11/29/2024 1:44 PM EDT 50 mg documented in this encounter Care Teams Videogame Designer Relationship Specialty Start Date End Date [facility], Find-A-Doc [facility] [place] [id number] PCP - General 11/26/24 documented as of this encounter
[2024-12-05 22:52] LABS: Coronavirus 19, PCR Not Detected (NotDetected); Influenza A, PCR Not Detected (NotDetected); Influenza B, PCR Not Detected (NotDetected)
--- OUTSIDE RECORDS SUMMARY | 2024-12-06 12:56 | XMS_ITS | Referral Summary ---
Author Organization [employer] ([place], [place], [place], [place]) Address [address] [place] [address] Care Team Providers Care Hollock Maker Name Role Phone [facility], [facility] Primary Care Provider Encounters Date Type Department Care Team Description 11/26/2024 10:12 PM EDT - 11/30/2024 5:05 PM EDT Hospital Encounter [facility] [address] [place] [id number] Urvashi Meza MD Elliott, Jayden, PA-C Evans, Sophia, PA-C Patel, Paru G, [employer] Gerard Gil DO Medical history unknown Discharge Disposition: Home or Self Care 11/29/2024 1:35 PM EDT Anesthesia Event [facility] Operating Room [address] [place] [address] Tamra Alejo MD Bowen, Jon B, MD 11/29/2024 12:52 PM EDT - 11/29/2024 2:40 PM EDT Surgery [facility] Operating Room [address] [place] [address] Daryl Priest MD (CHOLECYSTECTOMY, LAPAROSCOPIC) from Last 3 Months Allergies Active Allergy Reactions Criticality Noted Date Comments Azithromycin 11/29/2024 Medications acetaminophen (TYLENOL) 325 MG tablet Take 1 tablet (325 mg total) by mouth every 4 (four) hours for 2 days. 12 tablet 11/30/2024 12/03/19 25 ibuprofen (MOTRIN) 200 MG tablet Take 1 tablet (200 mg total) by mouth every 4 (four) hours for 5 days. 30 tablet 11/30/2024 12/06/19 25 HYDROcodone-ned taminophen (NORCO) 5-325 mg per tablet Take 1 tablet by mouth every 6 (six) hours as needed for pain for up to 2 days. Max Daily Amount: 4 tablets 8 tablet 11/30/2024 12/03/19 25 acetaminophen (Tylenol Extra Strength) 500 MG tablet Take 1 tablet (500 mg total) by mouth every 6 (six) hours as needed for pain for up to 2 days. 8 tablet 12/02/2024 12/05/19 25 Active Problems Problem Noted Date Diagnosed Date Acute pancreatitis 11/26/2024 Social History Tobacco Use Types Packs/Day Years Used Date Smoking Tobacco: Never Assessed Comments Unknown Sex and Gender Information Value Date Recorded Sex Assigned at Not on file Legal Sex Female 5:26 PM CDT Gender Identity Not on file Sexual Orientation Not on file Last Filed Vital Signs Vital Sign Reading [...] Mass Index 34.19 11/29/2024 9:35 AM EDT Plan of Treatment Not on file Procedures Procedure Name Priority Date/Time Associated Diagnosis Comments TISSUE EXAM (ANTWAN FUENTES) AP Routine 11/29/2024 2 :04 PM EDT Medical history unknown ANESTHESIA INTUBATION Routine 11/29/2024 1:56 PM EDT MO LAPAROSCOPY SURG CHOLECYSTECTOMY 11/29/2024 1:35 PM EDT Medical history unknown Case Notes 1.5HR (A) HCG, QUANTITATIVE, Add-On 11/29/2024 9:26 AM EDT LIPASE Routine 11/28/2024 9:59 AM EDT CBC HEMOGRAM (SJ-BKR) Routine 11/28/2024 9:59 AM EDT COMPREHENSIVE METABOLIC PANEL Routine 11/28/2024 9:59 AM EDT NOVA GLUCOSE POC Routine 11/27/2024 11:3 8 AM EDT MR ABDOMEN WITHOUT IV CONTRAST MRCP Routine 11/27/2024 10:20 AM EDT LIPASE Routine 11/27/2024 6:25 AM EDT COMPREHENSIVE METABOLIC PANEL Routine 11/27/2024 6:25 AM EDT CBC W/ AUTO DIFF Routine 11/27/2024 6:25 AM EDT from Last 3 Months Results * Tissue Exam (11/29/2024 2:04 PM [...] No masses or mucosal lesions are identified. Button Sewer Hand sections to include the en face cystic duct margin, neck, body and fundus are submitted in A1. HDM Tissue GALLBLADDER STRUCTURE / Unknown 11/29/2024 2:04 PM EDT us Daryl Priest MD PATHOLOGY/CYTOLOGY ORDERABLES Fi nal Result Performing Organization Address City/State/[facility] Co de Phone Number [facility] [address] [place] [address] * AN SINGLE LUMEN INTUBATION (11/29/2024 1:56 PM EDT) Mp Conner CRNA - 11/29/2024 1:56 PM EDT Mp Crespo CRNA 11/29/2024 2:15 PM Intubation Authorized by: Mp Crespo CRNA Performed by: Vernell Ray [facility] Date/Time: 11/29/2024 1:56 PM Urgency: elective Indications [...] attempted: 0 Additional Comments Dentition unchanged, atraumatic us Mp Crespo CRNA ANESTHESIA ORDERABLES Edited Result - Final * hCG, quantitative, (11/29/2024 9:26 AM EDT) HCG Serum Quant <3 0 - 5 mIU/mL 11/29/2024 10:24 AM EDT [facility] Comment: Because hCG is normally synthesized [...] Barth MD LAB BLOOD ORDERABLES Final Result [facility] [address] [phone] * (ABNORMAL) CBC - Hemogram (SJ-BKR) (11/28/2024 9:59 AM EDT) WBC 11.6(H) 4.0 - 10.0 K/ L 11/28/2024 10:14 AM EDT [facility] RBC 4.50 3.93 - 5.22 M/ L 11/28/2024 10:14 AM EDT [facility] Hemoglobin 13.7 11.2 - 15.7 GM/DL 11/28/2024 10:14 AM EDT [facility] Hematocrit 40.3 34.1 - 44.9 % 11/28/2024 10:14 AM EDT [facility] MCV 90 79 - 95 fL 11/28/2024 10:14 AM EDT [facility] MCH 30.4 25.6 - 32.2 pg 11/28/2024 10:14 AM EDT [facility] MCHC 34.0 32.2 - 35.5 GM/DL 11/28/2024 10:14 AM EDT [facility] RDW 13.7 11.7 - 14.4 % 11/28/2024 10:14 AM EDT [facility] Platelets 252 140 - 375 K/CU MM 11/28/2024 10:14 AM EDT [facility] MPV 10.0 9.4 - 12.3 fL 11/28/2024 10:14 AM EDT [facility] Blood Venipuncture / Unknown 11/28/2024 9:59 AM EDT 11/28/2024 10:12 AM EDT us Ana Erwin PA-C LAB BLOOD ORDERABLES Final Res ult Performing Organization Address [facility]/ZIP Co de Phone Number [facility] [address] [phone] * (ABNORMAL) Lipase (11/28/2024 9:59 AM EDT) Only the most recent of2 resultswithin the time period is included. Lipase 201(H) <=60 U/L 11/28/2024 10:34 AM EDT [facility] Blood Venipuncture / Unknown 11/28/2024 9:59 AM EDT 11/28/2024 10:12 AM EDT us Ana Erwin PA-C LAB BLOOD ORDERABLES Final Res ult [facility] [address] [phone] * (ABNORMAL) Comprehensive metabolic panel (11/28/2024 9:59 AM EDT) Only the most recent of2 resultswithin the time period is included. Sodium 140 136 - 145 meq/L 11/28/2024 10:42 AM [facility] Potassium 3.6 3.4 - 5.1 meq/L 11/28/2024 10:42 AM [facility] Chloride 110 98 - 112 meq/L 11/28/2024 10:42 AM [facility] CO2 22 22 - 29 meq/L 11/28/2024 10:42 AM [facility] Calcium 8.7 8.4 - 10.2 mg/dL 11/28/2024 10:42 AM [facility] Glucose 94 74 - 100 mg/dL 11/28/2024 10:42 AM [facility] BUN 7.8 7.0 - 18.7 mg/dL 11/28/2024 10:42 AM [facility] Creatinine 0.65 0.57 - 1.11 mg/dL 11/28/2024 10:42 AM [facility] BUN/Creatinine 12 8 - 20 11/28/2024 10:42 AM [facility] eGFR (mL/min/1.73m2) 126 >=60 mL/min/1. 73m2 11/28/2024 10:42 AM [facility] Albumin 3.1(L) 3.5 - 5.0 g/dL 11/28/2024 10:42 AM [facility] Alkaline Phosphatase 115 40 - 150 U/L 11/28/2024 10:42 AM [facility] ALT 105(H) <=34 U/L 11/28/2024 10:42 AM [facility] Comment: ALT2 reagent used for testing does not contain P5P supplementation and therefore may miss ALT elevations in patients with B6 deficiency. This population may be as high as 10% in the [place], with risk factors including malabsorption, drug interactions, and alcoholic hepatitis. AST 25 11 - 34 U/L 11/28/2024 10:42 AM [facility] Comment: AST2 reagent used for testing does not contain P5P supplementation and therefore may miss AST elevations in patients with B6 deficiency. This population may be as high as 10% in the [place], with risk factors including malabsorption, drug interactions, and alcoholic hepatitis. Total Bilirubin 0.5 0.2 - 1.2 mg/dL 11/28/2024 10:42 AM EDT [facility] Protein, Total 7.0 6.4 - 8.3 g/dL 11/28/2024 10:42 AM EDT [facility] Globulin 3.9 2.5 - 4.1 g/dL 11/28/2024 10:42 AM EDT [facility] Anion Gap 12 4 - 12 11/28/2024 10:42 AM EDT [facility] A/G Ratio 0.8 0.7 - 1.9 11/28/2024 10:42 AM EDT [facility] Osmolality Calc 277.4 mOsm/kg 10:42 AM EDT [facility] Blood Venipuncture / Unknown 11/28/2024 9:59 AM EDT 11/28/2024 10:12 AM EDT us Ana Erwin PA-C LAB BLOOD ORDERABLES Final Res ult [facility] [address] [phone] * (ABNORMAL) Glucose, Nova Meter (11/27/2024 11:38 AM EDT) POC-GLUCOSE 116(H) 70 - 110 mg/dL 11/27/2024 11:39 AM EDT [facility] Comment: In the event of poor peripheral blood flow, venous or arterial blood should be used due to the potential of erroneous results. Notified Nurse RBV Certified Procedural Coder [id number] 11/27/2024 11:39 AM EDT [facility] Blood WHOLE BLOOD / Unknown 11/27/2024 11:38 AM EDT 11/27/2024 11:39 AM EDT Narrative [facility] - 11/27/2024 11:39 AM EDT Certified Procedural Coder ID is - [id number] Ana Erwin PA-C POINT OF CARE TEST ORDERABLES Final Result [facility] [address] [place] [id number], [facility] [phone] * MR abdomen without IV contrast MRCP [...] MRI ORDERABLES Final Res ult * (ABNORMAL) CBC with automated diff (11/27/2024 6:25 AM EDT) WBC 9.5 4.0 - 10.0 K/ L 11/27/2024 7:07 AM EDT [facility] RBC 4.63 3.93 - 5.22 M/ L 11/27/2024 7:07 AM EDT [facility] Hemoglobin 13.7 11.2 - 15.7 GM/DL 11/27/2024 7:07 AM EDT [facility] Hematocrit 41.3 34.1 - 44.9 % 11/27/2024 7:07 AM EDT [facility] MCV 89 79 - 95 fL 11/27/2024 7:07 AM EDT [facility] MCH 29.6 25.6 - 32.2 pg 11/27/2024 7:07 AM EDT [facility] MCHC 33.2 32.2 - 35.5 GM/DL 11/27/2024 7:07 AM EDT [facility] RDW 13.9 11.7 - 14.4 % 11/27/2024 7:07 AM EDT [facility] Platelets 224 140 - 375 K/CU MM 11/27/2024 7:07 AM EDT [facility] MPV 9.9 9.4 - 12.3 fL 11/27/2024 7:07 AM EDT [facility] % Neutros 66 34 - 71 % 11/27/2024 7:07 AM EDT [facility] % Lymphs 25 19 - 52 % 11/27/2024 7:07 AM EDT [facility] % Monos 7 5 - 13 % 11/27/2024 7:07 AM EDT [facility] % Eos 2 1 - 6 % 11/27/2024 7:07 AM EDT [facility] % Baso 0 0 - 1 % 11/27/2024 7:07 AM EDT [facility] NRBC Absolute <0.01 0 - 0.012 K/ul 11/27/2024 7:07 AM EDT [facility] # Neutros 6.31(H) 1.56 - 6.13 K/ L 11/27/2024 7:07 AM EDT [facility] # Lymphs 2.34 1.18 - 3.74 K/ L 11/27/2024 7:07 AM EDT [facility] # Monos 0.62 0.24 - 0.86 K/ L 11/27/2024 7:07 AM EDT [facility] # Eos 0.20 0.04 - 0.36 K/ L 11/27/2024 7:07 AM EDT [facility] # Baso <0.03 0.01 - 0.08 K/ L 11/27/2024 7:07 AM EDT [facility] Immature Granulocytes-Re lative 0.30 0.01 - 0.43 % 11/27/2024 7:07 AM EDT [facility] # IG 0.03 0.00 - 0.03 K/uL 11/27/2024 7:07 AM EDT [facility] Blood Venipuncture / Unknown 11/27/2024 6:25 AM EDT 11/27/2024 7:03 AM EDT Narrative [facility] - 11/27/2024 7:07 AM EDT When [...] PA-C LAB BLOOD ORDERABLES Final R esult [facility] [address] [place] [address], [facility] [phone] from Last 3 Months Insurance [employer] [facility] Advance Directives For more information, please contact: [phone] * Full Code (Latest Code Status on File) Date Activated Date Inactivated Comments 11/26/2024 9:18 PM 11/30/2024 6:05 PM Care Teams Hollock Maker Relationship Specialty Start Date End Date [facility] [place] [address] PCP - General 11/26/24
--- OUTSIDE RECORDS SUMMARY | 2024-12-06 12:56 | XMS_ITS | Clinical Summary ---
Author Organization [employer] ([place], [place], [place], [place]) Address [address] [place] [address] Care Team Providers Care Wad Impregnator Name Role Phone [facility], [facility]Doc Primary Care Provider Allergies Active Allergy Reactions Criticality Noted Date Comments Azithromycin 11/29/2024 Medications acetaminophen (TYLENOL) 325 MG tablet Take 1 tablet (325 mg total) by mouth every 4 (four) hours for 2 days. 12 tablet 11/30/2024 12/03/19 25 ibuprofen (MOTRIN) 200 MG tablet Take 1 tablet (200 mg total) by mouth every 4 (four) hours for 5 days. 30 tablet 11/30/2024 12/06/19 25 HYDROcodone-nde taminophen (NORCO) 5-325 mg per tablet Take [...] Noted Date Diagnosed Date Acute pancreatitis 11/26/2024 Encounters Date Type Department Care Team Description 11/29/2024 1:35 PM EDT Anesthesia Event [facility] Operating Room [address] [place] [address] Tamra Alejo MD Bowen, Jon B, MD 11/29/2024 12:52 PM EDT - 11/29/2024 2:40 PM EDT Surgery [facility] Operating Room [address] [place] [address] Daryl Priest MD (CHOLECYSTECTOMY, LAPAROSCOPIC) 11/26/2024 10:12 PM EDT - 11/30/2024 5:05 PM EDT Hospital Encounter [facility] [address] [place] [address] Urvashi Meza MD Elliott, Jayden, PA-C Evans, Sophia, PA-C Patel, Paru G, AREA DEVELOPMENT MANAGER Gerard Gil, Medical history unknown Discharge Disposition: Home or Self Care from Last 3 Months Social History Tobacco Use Types Packs/Day Years [...] 11/29/2024 9:35 AM EDT Plan of Treatment Health Maintenance Due Date Last Done Comments Depression Screening (12+) 2012 Tobacco Cessation Counseling and Screening (12+) 2012 HIV Screening 07/18/2015 Hepatitis C Screening 2018 Lipid Panel 2020 Pap Smear 2021 DTAP/TDAP/TD VACCINES (7 - Td or Tdap) 09/02/2022 09/02/2012, 08/08/2004, 06/22/2002, Additional history exists COVID-19 VACCINE ( season) 2023 Influenza Vaccine (#1) 2024 Pneumococcal Vaccine: 0-49 Years Aged Out 06/22/2002, 11/17/2001 No longer eligibl e based on patient's age to complete this topic Procedures Procedure Name Priority Date/Time Associated Diagnosis Comments TISSUE EXAM (ANTWAN FUENTES) AP Routine 11/29/2024 2 :04 PM EDT Medical history unknown ANESTHESIA INTUBATION Routine 11/29/2024 1:56 PM EDT [place] LAPAROSCOPY SURG CHOLECYSTECTOMY 11/29/2024 1:35 PM EDT [...] No masses or mucosal lesions are identified. Cushion Filler sections to include the en face cystic duct margin, neck, body and fundus are submitted in A1. HDM Tissue GALLBLADDER STRUCTURE / Unknown 11/29/2024 2:04 PM EDT Daryl Priest MD PATHOLOGY/CYTOLOGY ORDERABLES Fi nal Result [facility] [address] [place] [address], [facility] * AN SINGLE LUMEN INTUBATION (11/29/2024 1:56 PM EDT) Narrative Mp Crespo CRNA - 11/29/2024 1:56 PM EDT Mp Crespo CRNA 11/29/2024 2:15 PM Intubation Authorized by: Mp Crespo CRNA Performed by: Vernell [facility] Date/Time: 11/29/2024 1:56 PM Urgency: elective Indications [...] Comments Dentition unchanged, atraumatic us Mp Crespo CORRESPONDENCE SPECIALIST ANESTHESIA ORDERABLES Edited Result - Final * hCG, quantitative, (11/29/2024 9:26 AM EDT) HCG Serum Quant <3 0 - 5 mIU/mL 11/29/2024 10:24 AM EDT [facility] Comment: Because hCG is [...] Barth MD LAB BLOOD ORDERABLES Final Result [facility] [address] [phone] * (ABNORMAL) CBC - Hemogram (SJ-BKR) (11/28/2024 9:59 AM EDT) WBC 11.6(H) 4.0 - 10.0 K/ L 11/28/2024 10:14 AM EDT [facility] RBC 4.50 3.93 - 5.22 M/ L 11/28/2024 10:14 AM EDT [facility] Hemoglobin 13.7 11.2 - 15.7 GM/DL 11/28/2024 10:14 AM EDT [facility] Hematocrit 40.3 34.1 - 44.9 % 11/28/2024 10:14 AM EDT [facility] MCV 90 79 - 95 fL 11/28/2024 10:14 AM EDT [facility] MCH 30.4 25.6 - 32.2 pg 11/28/2024 10:14 AM EDT [facility] MCHC 34.0 32.2 - 35.5 GM/DL 11/28/2024 10:14 AM EDT [facility] RDW 13.7 11.7 - 14.4 % 11/28/2024 10:14 AM EDT [facility] Platelets 252 140 - 375 K/CU MM 11/28/2024 10:14 AM EDT [facility] MPV 10.0 9.4 - 12.3 fL 11/28/2024 10:14 AM EDT [facility] Blood Venipuncture / Unknown 11/28/2024 9:59 AM EDT 11/28/2024 10:12 AM EDT us Ana Erwin PA-C LAB BLOOD ORDERABLES Final Res ult [facility] [address] [phone] * (ABNORMAL) Lipase (11/28/2024 9:59 AM EDT) Only the most recent of2 resultswithin the time period is included. Lipase 201(H) <=60 U/L 11/28/2024 10:34 AM EDT [facility] Blood Venipuncture / Unknown 11/28/2024 9:59 AM EDT 11/28/2024 10:12 AM EDT us Ana Erwin PA-C LAB BLOOD ORDERABLES Final Res ult [facility] [address] [phone] * (ABNORMAL) Comprehensive metabolic panel (11/28/2024 9:59 AM EDT) Only the most recent of2 resultswithin the time period is included. Sodium 140 136 - 145 meq/L 11/28/2024 10:42 AM EDT [facility] Potassium 3.6 3.4 - 5.1 meq/L 11/28/2024 10:42 AM EDT [facility] Chloride 110 98 - 112 meq/L 11/28/2024 10:42 AM EDT [facility] CO2 22 22 - 29 meq/L 11/28/2024 10:42 AM EDT [facility] Calcium 8.7 8.4 - 10.2 mg/dL 11/28/2024 10:42 AM EDT [facility] Glucose 94 74 - 100 mg/dL 11/28/2024 10:42 AM EDT [facility] BUN 7.8 7.0 - 18.7 mg/dL 11/28/2024 10:42 AM EDT [facility] Creatinine 0.65 0.57 - 1.11 mg/dL 11/28/2024 10:42 AM EDT [facility] BUN/Creatinine 12 8 - 20 11/28/2024 10:42 AM EDT [facility] eGFR (mL/min/1.73m2) 126 >=60 mL/min/1. 73m2 11/28/2024 10:42 AM EDT [facility] Albumin 3.1(L) 3.5 - 5.0 g/dL 11/28/2024 10:42 AM EDT [facility] Alkaline Phosphatase 115 40 - 150 U/L 11/28/2024 10:42 AM T [facility] ALT 105(H) <=34 U/L 11/28/2024 10:42 AM EDT [facility] Comment: ALT2 reagent used for testing does not contain P5P supplementation and therefore may miss ALT elevations in patients with B6 deficiency. This population may be as high as 10% in the [place], with risk factors including malabsorption, drug interactions, and alcoholic hepatitis. AST 25 11 - 34 U/L 11/28/2024 10:42 AM EDT [facility] Comment: AST2 reagent used for testing does not contain P5P supplementation and therefore may miss AST elevations in patients with B6 deficiency. This population may be as high as 10% in the [place], with risk factors including malabsorption, drug interactions, and alcoholic hepatitis. Total Bilirubin 0.5 0.2 - 1.2 mg/dL 11/28/2024 10:42 AM EDT [facility] Protein, Total 7.0 6.4 - 8.3 g/dL 11/28/2024 10:42 AM EDT [facility] Globulin 3.9 2.5 - 4.1 g/dL 11/28/2024 10:42 AM [facility] Anion Gap 12 4 - 12 11/28/2024 10:42 AM T [facility] A/G Ratio 0.8 0.7 - 1.9 11/28/2024 10:42 AM EDT [facility] Osmolality Calc 277.4 mOsm/kg 10:42 AM T [facility] Blood Venipuncture / Unknown 11/28/2024 9:59 AM EDT 11/28/2024 10:12 AM EDT us Ana Erwin PA-C LAB BLOOD ORDERABLES Final Res ult [facility] [address] [phone] * (ABNORMAL) Glucose, Nova Meter (11/27/2024 11:38 AM EDT) POC-GLUCOSE 116(H) 70 - 110 mg/dL 11/27/2024 11:39 AM EDT [facility] Comment: In the event of poor peripheral blood flow, venous or arterial blood should be used due to the potential of erroneous results. Notified Nurse [employer] Software Business Analyst [id number] 11/27/2024 11:39 AM EDT [facility] Blood WHOLE BLOOD / Unknown 11/27/2024 11:38 AM EDT 11/27/2024 11:39 AM EDT Narrative [facility] - 11/27/2024 11:39 AM EDT Software Business Analyst ID is - [id number] Ana Erwin PA-C POINT OF CARE TEST ORDERABLES Final Result Performing Organization Address City/State/[facility] Co de Phone Number [facility] [address] [phone] * MR abdomen without IV contrast MRCP [...] dictated by Salvador Pedersen M.D. us Twin Goldstein PA-C [facility] [place] ORDERABLES Final Res ult * (ABNORMAL) CBC with automated diff (11/27/2024 6:25 AM EDT) WBC 9.5 4.0 - 10.0 K/ L 11/27/2024 7:07 AM EDT [facility] RBC 4.63 3.93 - 5.22 M/ L 11/27/2024 7:07 AM EDT [facility] Hemoglobin 13.7 11.2 - 15.7 GM/DL 11/27/2024 7:07 AM EDT [facility] Hematocrit 41.3 34.1 - 44.9 % 11/27/2024 7:07 AM EDT [facility] MCV 89 79 - 95 fL 11/27/2024 7:07 AM EDT [facility] MCH 29.6 25.6 - 32.2 pg 11/27/2024 7:07 AM EDT [facility] MCHC 33.2 32.2 - 35.5 GM/DL 11/27/2024 7:07 AM EDT [facility] RDW 13.9 11.7 - 14.4 % 11/27/2024 7:07 AM EDT [facility] Platelets 224 140 - 375 K/CU MM 11/27/2024 7:07 AM EDT [facility] MPV 9.9 9.4 - 12.3 fL 11/27/2024 7:07 AM EDT [facility] % Neutros 66 34 - 71 % 11/27/2024 7:07 AM EDT [facility] % Lymphs 25 19 - 52 % 11/27/2024 7:07 AM EDT [facility] % Monos 7 5 - 13 % 11/27/2024 7:07 AM EDT [facility] % Eos 2 1 - 6 % 11/27/2024 7:07 AM EDT [facility] % Baso 0 0 - 1 % 11/27/2024 7:07 AM EDT [facility] NRBC Absolute <0.01 0 - 0.012 K/ul 11/27/2024 7:07 AM EDT [facility] # Neutros 6.31(H) 1.56 - 6.13 K/ L 11/27/2024 7:07 AM EDT [facility] # Lymphs 2.34 1.18 - 3.74 K/ L 11/27/2024 7:07 AM EDT [facility] # Monos 0.62 0.24 - 0.86 K/ L 11/27/2024 7:07 AM EDT [facility] # Eos 0.20 0.04 - 0.36 K/ L 11/27/2024 7:07 AM EDT [facility] # Baso <0.03 0.01 - 0.08 K/ L 11/27/2024 7:07 AM EDT [facility] Immature Granulocytes-Re lative 0.30 0.01 - 0.43 % 11/27/2024 7:07 AM EDT [facility] # IG 0.03 0.00 - 0.03 K/uL 11/27/2024 7:07 AM EDT [facility] Blood Venipuncture / Unknown 11/27/2024 6:25 AM EDT 11/27/2024 7:03 AM EDT Narrative [facility] - 11/27/2024 7:07 AM [...] PA-C LAB BLOOD ORDERABLES Final R esult [facility] [address] [place] [address], [facility] [phone] from Last 3 Months Insurance [employer] [address] Advance Directives For more information, please contact: [phone] * Full Code (Latest Code Status on File) Date Activated Date Inactivated Comments 11/26/2024 9:18 PM 11/30/2024 6:05 PM Care Teams Wad Impregnator Relationship Specialty Start Date End Date [facility] [place] [address] PCP - General 11/26/24
== END 2024-12-05 23:59 | disposition home or self-care (01) ==
LOC: LAB.DROPOF 12-06 12:53
PROVIDERS: PCP Student in an Organized Health Care Education/Training Program; Visit Provider Student in an Organized Health Care Education/Training Program
DX: J06.9 Acute upper respiratory infection, unspecified (principal)
CPT/HCPCS: 87631